=== PATIENT | female | born 1940 | race Caucasian/White ===

== ENCOUNTER → 2016-07-13 | Outpatient (CLI) | payer MEDICARE ==
--- NOTE | 2016-07-14 09:54 | MM ---
Reason for exam: screening (asymptomatic). Last mammogram was performed 1 year and 2 months ago. History: Patient is postmenopausal. Benign excisional biopsy of the left breast, 1986. Benign excisional biopsy of the right breast, 1984. Benign excisional biopsy of the left breast. Took hormonal contraceptives for 3 years beginning at age 18. Took estrogen for 2 years beginning at age 47. Taking other hormone for 39 years beginning at age 28. Physical Findings: A clinical breast exam by your physician is recommended on an annual basis and results should be correlated with mammographic findings. MG 3D Screening Mammo W/Cad Bilateral CC and MLO view(s) were taken. Prior study comparison: May 26, 2015, bilateral MG 3d screening mammo w/cad. May 19, 2014, bilateral MG screening mammo w CAD. The breast tissue is heterogeneously dense. This may lower the sensitivity of mammography. Benign calcifications. There is no discrete abnormality. No significant changes when compared with prior studies. ASSESSMENT: Benign, BI-RAD 2 RECOMMENDATION: Routine screening mammogram of both breasts in 1 year.
== END | disposition home or self-care (01) ==
LOC: RADMAMWWP 08:52
PROVIDERS: ATTEND Family Medicine
DX: Z12.31 Encounter for screening mammogram for malignant neoplasm of breast (principal)
CPT/HCPCS: 77063; G0202

== ENCOUNTER → 2017-07-20 | Outpatient (CLI) | payer MEDICARE ==
--- NOTE | 2017-07-21 10:46 | MM ---
Reason for exam: screening (asymptomatic). Last mammogram was performed 1 year ago. History: Patient is postmenopausal. Benign excisional biopsy of the left breast, 1986. Benign excisional biopsy of the right breast, 1984. Benign excisional biopsy of the left breast. Took hormonal contraceptives for 3 years beginning at age 18. Took estrogen for 2 years beginning at age 47. Taking other hormone for 39 years beginning at age 28. Physical Findings: A clinical breast exam by your physician is recommended on an annual basis and results should be correlated with mammographic findings. MG 3D Screening Mammo W/Cad Bilateral CC and MLO view(s) were taken. XCCL view(s) were taken of the left breast. Prior study comparison: July 13, 2016, bilateral MG 3d screening mammo w/cad. May 26, 2015, bilateral MG 3d screening mammo w/cad. The breast tissue is heterogeneously dense. This may lower the sensitivity of mammography. Finding #1: Architectural distortion in the outer quadrant of the right breast consistent with known excisional biopsy. Finding #2: There are typically benign vascular calcifications in the right breast. Asymmetric breast tissue in the right medial position is stable and in the left breast upper quadrant is stable. There is no discrete abnormality. Benign round calcifications in the left breast. ASSESSMENT: Benign, BI-RAD 2 RECOMMENDATION: Routine screening mammogram of both breasts in 1 year.
== END | disposition home or self-care (01) ==
LOC: RADMAMWWP 13:10
PROVIDERS: ATTEND Family Medicine
DX: Z12.31 Encounter for screening mammogram for malignant neoplasm of breast (principal)
CPT/HCPCS: 77063; 77067

== ENCOUNTER → 2018-08-13 | Outpatient (CLI) | payer MEDICARE ==
--- NOTE | 2018-08-15 07:39 | MM ---
Reason for exam: screening (asymptomatic). Last mammogram was performed 1 year and 1 month ago. History: Patient is postmenopausal. Benign excisional biopsy of the left breast, 1986. Benign excisional biopsy of the right breast, 1984. Benign excisional biopsy of the left breast. Took hormonal contraceptives for 3 years beginning at age 18. Took estrogen for 2 years beginning at age 47. Taking other hormone for 39 years beginning at age 28. Physical Findings: A clinical breast exam by your physician is recommended on an annual basis and results should be correlated with mammographic findings. MG 3D Screening Mammo W/Cad Bilateral CC and MLO view(s) were taken. Prior study comparison: July 20, 2017, bilateral MG 3d screening mammo w/cad. July 13, 2016, bilateral MG 3d screening mammo w/cad. The breast tissue is heterogeneously dense. This may lower the sensitivity of mammography. Benign appearing bilateral calcifications. No suspicious abnormality. No significant changes when compared with prior studies. ASSESSMENT: Benign, BI-RAD 2 RECOMMENDATION: Routine screening mammogram of both breasts in 1 year.
== END | disposition home or self-care (01) ==
LOC: RADMAMWWP 13:01
PROVIDERS: ATTEND Family Medicine
DX: Z12.31 Encounter for screening mammogram for malignant neoplasm of breast (principal)
CPT/HCPCS: 77063; 77067

== ENCOUNTER 2018-12-07 19:19 | Inpatient (IN) | payer MEDICARE ==
[2018-12-07] MEDS ORDERED: SODIUM CHLORIDE 0.9% 500 ML 500 ML IV STA (20:02)
--- NOTE | 2018-12-07 20:21 | ED ---
General Adult HPI - General Chief complaint: Weakness Stated complaint: Fall Time Seen by Provider: 12/07/18 19:45 Source: patient, family, EMS, RN notes reviewed Mode of arrival: EMS Limitations: no limitations - History of Present Illness Initial comments: Chief complaint and history of present illness this is an 78-year-old female who reports that she had difficulty getting up from her easy chair today. She states she is normally able to push herself up and use her walker. With she was unable to do it this afternoon. She did awaken this morning was able to go prepare her coffee and go to the bathroom using her walker. This afternoon she couldn't even stand with people on either side of her. Patient reports that while on the toilet yesterday she was trying to remove a slip her and she slipped off the toilet landing near the bathtub. EMS responded yesterday helped her up put her in bed. She was able to ambulate in her normal fashion by using a walker afterwards. Her problem started this afternoon. Any pain from yesterday's incident. Denies any headache denies any neuro deficits other than bilateral lower extremity weakness. - Related Data Home Medications Medication Instructions Recorded Confirmed Acetaminophen [Tylenol Extra 1,000 mg PO DAILY 12/07/18 12/07/18 Strength] Ascorbic Acid [Vitamin C] 500 mg PO DAILY 12/07/18 12/07/18 Cholecalciferol [Vitamin D3 (25 2,000 unit PO DAILY 12/07/18 12/07/18 Mcg = 1000 Iu)] Citalopram Hydrobromide [CeleXA] 20 mg PO DAILY 12/07/18 12/07/18 Gabapentin [Neurontin] 200 mg PO BID 12/07/18 12/07/18 Levothyroxine Sodium [Synthroid] 75 mcg PO DAILY 12/07/18 12/07/18 Multivitamins, Thera [Multivitamin 1 tab PO DAILY 12/07/18 12/07/18 (formulary)] Vit A/Vit C/Vit E/Zinc/Copper 1 cap PO DAILY 12/07/18 12/07/18 [ICAPS SOFTGEL] clonazePAM 0.5 mg PO BID 12/07/18 12/07/18 cycloSPORINE [Restasis] 1 applicator BOTH EYES BID 12/07/18 12/07/18 Allergies Allergy/AdvReac Type Severity Reaction Status Date / Time Latex, Natural Rubber Allergy Rash/Hives Verified 12/07/18 19:50 Review of Systems ROS Statement: Those systems with pertinent positive or pertinent negative responses have been documented in the HPI. Review of systems patient denies any headache no visual acuity changes no chest pain or shortness of breath has chronic low back pain. No nausea vomiting or diarrhea. No pain to the extremities. Patient reports for short while she was extremely cold and then extremely hot, she was sweaty at the time. Patient denies any difficulty urinating no frequency urgency dysuria denies any diarrhea. thIs reportedly happened once over a short period. Vital signs shows temperature 99.9 pulse 94 respiratory rate 18 pulse ox 94% on room air blood pressure 12 or 55. Past medical problems significant for hypothyroidism after partial thyroid lobe removed. Patient surgeries include partial thyroidectomy, both feet refilled, right fem-pop bypass, total hysterectomy, breast lump removed and cataracts. The patient's family history significant for mother had pancreatic cancer and a father had lymphoma. The patient denies any ALLERGIES. She does smoke occasionally drinks alcohol socially. ROS Other: All systems not noted in ROS Statement are negative. General Exam - General Exam Comments Initial Comments: General: The patient is awake and alert, currently in no distress. Patient's chief complaint was weakness, unable to help herself out of her easy chair to her walker which she was able to do earlier in the day. Unable to stand even with 2 people assisting her. Denying pain. Vital signs temp 99.5 pulse 94 respiratory rate 18 pulse ox 94% on room air blood pressure 1 2/55 Eye: Pupils are equal, round and reactive to light, extra-ocular movements are intact; there is normal conjunctiva bilaterally. No signs of icterus. Evidence of cataract surgery Ears, nose, mouth and throat: There are moist mucous membranes and no oral lesions. Neck: The neck is supple, there is no tenderness. Cardiovascular: There is a regular rate and rhythm. No murmur, rub or gallop is appreciated. Respiratory: Lungs are clear to auscultation, respirations are non-labored, breath sounds are equal. No wheezes, stridor, rales, or rhonchi. Gastrointestinal: Soft, non-distended, non-tender abdomen without masses or organomegaly noted. There is no rebound or guarding present. No CVA tenderness. Bowel sounds are unremarkable. Back: There is no tenderness to palpation in the midline. There is no obvious deformity. No rashes noted. History of chronic low back pain. Musculoskeletal: Normal ROM, no tenderness, There is no pedal edema. There is no calf tenderness or swelling. Sensation intact. Pulses equal bilaterally 2+. Neurological: CN II-XII intact, There are no obvious motor or sensory deficits. Coordination appears grossly intact. Speech is normal. No focal or lateralizing findings. bedside neurological exam was within normal limits. Average to be made to have the patient ambulate. Patient able to lift her legs against gravity and hold them in place for 5 seconds. No numbness no tingling, neurovascular status intact to the legs. Skin: Skin is warm and dry and no rashes or lesions are noted. Psychiatric: Cooperative, appropriate mood & affect, Limitations: no limitations Course Vital Signs 12/07/18 12/07/18 12/07/18 19:22 19:40 21:56 Temperature 99.5 F 99.8 F H Pulse Rate 94 89 Respiratory 18 18 18 Rate Blood Pressure 102/55 102/55 O2 Sat by Pulse 94 L Oximetry EKG Findings - EKG Comments: EKG Findings:: EKG was done and reviewed at 2019 showing normal sinus rhythm, no acute ST elevation , no ectopy no ischemic changes. Rate 93 ID interval is 02/24/2027 QRS 84 QT [address] Childs Medical Decision Making - Medical Decision Making Medical decision making; this is an 78-year-old female here with family. The patient reports that she had weakness today starting around mid afternoon. Yesterday she states that she was trying to remove a shoe and she fell off the toilet but didn't hurt herself. EMS went to the house and put her back in bed. She reports she got up this morning without difficulty used her walker to go to get coffee and then to the bathroom. Later on the afternoon she could not even with assistance getting out of her easy chair. She was brought emergency room. Patient denies any other symptoms at this time denies any headache no chest pain no palpitations no shortness of breath no GI/ problems. She able to move all extremities lift against gravity but was unable to ambulate or stand on her own power. Labs show white count 16.5 hemoglobin 12.7 hematocrit 39. Urine shows moderate amount of blood, nitrate positive, large leuk esterase, 12 RBCs and clumps of WBCs. INR is 1.0. The patient's BUN is 34 creatinine 1.27 the GFR 40. The patient's glucose 131. Troponin is reported by laboratory to be 0.2-2. Patient's EKG did not show any acute changes, no ischemic changes. The patient had no complaint of chest pain. X-ray of the chest was done and reviewed by radiologist his impression is no acute cardio pulmonary disease as read by Dr. Johnson. The radiologist reviewed x-rays lumbosacral spine his impression is spondylotic changes but no acute fracture. As read by Dr. Johnson. Discussed case with patient and family at bedside patient be admitted for the evaluation with repeat troponins. First and repeat neurological examinations are within normal limits even with leg lifting against gravity for [address] Shea. Patient admitted to his service. Continued on Levaquin with repeat troponin every 6. - Lab Data Result diagrams: 12/07/18 20:13 12/07/18 20:13 Lab Results 12/07/18 12/07/18 12/07/18 Range/Units 20:13 20:13 20:13 WBC 16.5 H (3.8-10.6) k/uL RBC 4.19 (3.80-5.40) m/uL Hgb 12.7 (11.4-16.0) gm/dL Hct 39.9 (34.0-46.0) % MCV 95.2 (80.0-100.0) fL MCH 30.4 (25.0-35.0) pg MCHC 31.9 (31.0-37.0) g/dL RDW 13.5 (11.5-15.5) % Plt Count 155 (150-450) k/uL Neutrophils % 92 % Lymphocytes % 3 % Monocytes % 3 % Eosinophils % 1 % Basophils % 1 % Neutrophils # 15.2 H (1.3-7.7) k/uL Lymphocytes # 0.4 L (1.0-4.8) k/uL Monocytes # 0.4 (0-1.0) k/uL Eosinophils # 0.2 (0-0.7) k/uL Basophils # 0.1 (0-0.2) k/uL PT (9.0-12.0) sec INR (<1.2) APTT (22.0-30.0) sec Sodium 133 L (137-145) mmol/L Potassium 4.3 (3.5-5.1) mmol/L Chloride 100 (98-107) mmol/L Carbon Dioxide 24 (22-30) mmol/L Anion Gap 9 mmol/L BUN 34 H (7-17) mg/dL Creatinine 1.27 H (0.52-1.04) mg/dL Est GFR (CKD-EPI)AfAm 46 (>60 ml/min/1.73 sqM) Est GFR (CKD-EPI)NonAf 40 (>60 ml/min/1.73 sqM) Glucose 131 H (74-99) mg/dL Plasma Lactic Acid Trip 1.1 (0.7-2.0) mmol/L Calcium 8.9 (8.4-10.2) mg/dL Total Bilirubin 0.5 (0.2-1.3) mg/dL AST 486 H (14-36) U/L ALT 393 H (9-52) U/L Alkaline Phosphatase 102 (38-126) U/L Troponin I (0.000-0.034) ng/mL Total Protein 6.5 (6.3-8.2) g/dL Albumin 3.4 L (3.5-5.0) g/dL Urine Color Urine Appearance (Clear) Urine pH (5.0-8.0) Ur Specific [place] (1.001-1.035) Urine Protein (Negative) Urine Glucose (UA) (Negative) Urine Ketones (Negative) Urine Blood (Negative) Urine Nitrite (Negative) Urine Bilirubin (Negative) Urine Urobilinogen (<2.0) mg/dL Ur Leukocyte Esterase (Negative) Urine RBC (0-5) /hpf Urine WBC (0-5) /hpf Urine WBC Clumps (None) /hpf Ur Squamous Epith Cells (0-4) /hpf Urine Bacteria (None) /hpf Influenza Type A RNA (Not Detectd) Influenza Type B (PCR) (Not Detectd) 12/07/18 12/07/18 12/07/18 Range/Units 20:13 20:13 20:30 WBC (3.8-10.6) k/uL RBC (3.80-5.40) m/uL Hgb (11.4-16.0) gm/dL Hct (34.0-46.0) % MCV (80.0-100.0) fL MCH (25.0-35.0) pg MCHC (31.0-37.0) g/dL RDW (11.5-15.5) % Plt Count (150-450) k/uL Neutrophils % % Lymphocytes % % Monocytes % % Eosinophils % % Basophils % % Neutrophils # (1.3-7.7) k/uL Lymphocytes # (1.0-4.8) k/uL Monocytes # (0-1.0) k/uL Eosinophils # (0-0.7) k/uL Basophils # (0-0.2) k/uL PT 10.3 (9.0-12.0) sec INR 1.0 (<1.2) APTT 26.9 (22.0-30.0) sec Sodium (137-145) mmol/L Potassium (3.5-5.1) mmol/L Chloride (98-107) mmol/L Carbon Dioxide (22-30) mmol/L Anion Gap mmol/L BUN (7-17) mg/dL Creatinine (0.52-1.04) mg/dL Est GFR (CKD-EPI)AfAm (>60 ml/min/1.73 sqM) Est GFR (CKD-EPI)NonAf (>60 ml/min/1.73 sqM) Glucose (74-99) mg/dL Plasma Lactic Acid Trip (0.7-2.0) mmol/L Calcium (8.4-10.2) mg/dL Total Bilirubin (0.2-1.3) mg/dL AST (14-36) U/L ALT (9-52) U/L Alkaline Phosphatase (38-126) U/L Troponin I 0.222 H* (0.000-0.034) ng/mL Total Protein (6.3-8.2) g/dL Albumin (3.5-5.0) g/dL Urine Color Urine Appearance (Clear) Urine pH (5.0-8.0) Ur Specific [place] (1.001-1.035) Urine Protein (Negative) Urine Glucose (UA) (Negative) Urine Ketones (Negative) Urine Blood (Negative) Urine Nitrite (Negative) Urine Bilirubin (Negative) Urine Urobilinogen (<2.0) mg/dL Ur Leukocyte Esterase (Negative) Urine RBC (0-5) /hpf Urine WBC (0-5) /hpf Urine WBC Clumps (None) /hpf Ur Squamous Epith Cells (0-4) /hpf Urine Bacteria (None) /hpf Influenza Type A RNA Not Detected (Not Detectd) Influenza Type B (PCR) Not Detected (Not Detectd) 12/07/18 Range/Units 21:00 WBC (3.8-10.6) k/uL RBC (3.80-5.40) m/uL Hgb (11.4-16.0) gm/dL Hct (34.0-46.0) % MCV (80.0-100.0) fL MCH (25.0-35.0) pg MCHC (31.0-37.0) g/dL RDW (11.5-15.5) % Plt Count (150-450) k/uL Neutrophils % % Lymphocytes % % Monocytes % % Eosinophils % % Basophils % % Neutrophils # (1.3-7.7) k/uL Lymphocytes # (1.0-4.8) k/uL Monocytes # (0-1.0) k/uL Eosinophils # (0-0.7) k/uL Basophils # (0-0.2) k/uL PT (9.0-12.0) sec INR (<1.2) APTT (22.0-30.0) sec Sodium (137-145) mmol/L Potassium (3.5-5.1) mmol/L Chloride (98-107) mmol/L Carbon Dioxide (22-30) mmol/L Anion Gap mmol/L BUN (7-17) mg/dL Creatinine (0.52-1.04) mg/dL Est GFR (CKD-EPI)AfAm (>60 ml/min/1.73 sqM) Est GFR (CKD-EPI)NonAf (>60 ml/min/1.73 sqM) Glucose (74-99) mg/dL Plasma Lactic Acid Trip (0.7-2.0) mmol/L Calcium (8.4-10.2) mg/dL Total Bilirubin (0.2-1.3) mg/dL AST (14-36) U/L ALT (9-52) U/L Alkaline Phosphatase (38-126) U/L Troponin I (0.000-0.034) ng/mL Total Protein (6.3-8.2) g/dL Albumin (3.5-5.0) g/dL Urine Color Yellow Urine Appearance Cloudy H (Clear) Urine pH 6.0 (5.0-8.0) Ur Specific [place] 1.015 (1.001-1.035) Urine Protein 2+ H (Negative) Urine Glucose (UA) Negative (Negative) Urine Ketones Negative (Negative) Urine Blood Moderate H (Negative) Urine Nitrite Positive H (Negative) Urine Bilirubin Negative (Negative) Urine Urobilinogen <2.0 (<2.0) mg/dL Ur Leukocyte Esterase Large H (Negative) Urine RBC 12 H (0-5) /hpf Urine WBC >182 H (0-5) /hpf Urine WBC Clumps Many H (None) /hpf Ur Squamous Epith Cells 3 (0-4) /hpf Urine Bacteria Many H (None) /hpf Influenza Type A RNA (Not Detectd) Influenza Type B (PCR) (Not Detectd) Disposition Clinical Impression: Weakness of both lower limbs, Urinary tract infection, Elevated troponin, Chronic kidney disease Disposition: ADMITTED IP TO THIS HOSP Condition: Serious Is patient prescribed a controlled substance at d/c from ED?: No Referrals: None,Stated [Primary Care Provider] - 1-2 days
[2018-12-07 20:42] LABS: Basophils # (A) 0.1 k/uL (0-0.2); Basophils % (A) 1 %; Eosinophils # (A) 0.2 k/uL (0-0.7); Eosinophils % (A) 1 %; HCT 39.9 % (34.0-46.0); HGB 12.7 gm/dL (11.4-16.0); Lymphocytes # (A) 0.4 k/uL (1.0-4.8); Lymphocytes % (A) 3 %; MCH 30.4 pg (25.0-35.0); MCHC 31.9 g/dL (31.0-37.0); MCV 95.2 fL (80.0-100.0); Monocytes # (A) 0.4 k/uL (0-1.0); Monocytes % (A) 3 %; Neutrophils # (A) 15.2 k/uL (1.3-7.7); Neutrophils % (A) 92 %; Platelet Count 155 k/uL (150-450); RBC 4.19 m/uL (3.80-5.40); RDW 13.5 % (11.5-15.5); WBC 16.5 k/uL (3.8-10.6)
[2018-12-07 20:50] LABS: Partial Thromboplastin Time 26.9 sec (22.0-30.0); Prothrombin Time 10.3 sec (9.0-12.0)
[2018-12-07 20:52] LABS: Albumin 3.4 g/dL (3.5-5.0); Calcium 8.9 mg/dL (8.4-10.2); Potassium 4.3 mmol/L (3.5-5.1); Total Bilirubin 0.5 mg/dL (0.2-1.3); Total Protein 6.5 g/dL (6.3-8.2)
--- NOTE | 2018-12-07 21:27 | XR ---
EXAMINATION TYPE: XR chest 2V DATE OF EXAM: 12/07/2018 COMPARISON: 06/14/2010 HISTORY: Weakness TECHNIQUE: Frontal and lateral views of the chest are obtained. FINDINGS: There is no heart failure nor confluent pneumonic infiltrate. Costophrenic angles are demetri r. Bony thorax is intact. There are chest leads. IMPRESSION: No active cardiopulmonary disease. Normal heart. No change.
--- NOTE | 2018-12-07 21:29 | XR ---
EXAMINATION TYPE: XR lumbosacral spine min 4V DATE OF EXAM: 12/07/2018 COMPARISON: NONE HISTORY: Leg weakness TECHNIQUE: 5 views FINDINGS: Lumbar vertebra have normal alignment. There is some degenerative disc space narrowing thro ughout the lumbar spine and more noticeable at L1-L2 3. There is no compression fracture. Posterior e lements are intact. Sacroiliac joints are intact. IMPRESSION: Spondylotic changes. No fracture.
[2018-12-07 21:32] LABS: Appearance,Urine Cloudy (Clear); Bacteria,Urine Many /hpf; Bilirubin,Urine Negative (Negative); Blood,Urine Moderate (Negative); Color,Urine Yellow; Glucose,Urine (UA) Negative (Negative); Ketones,Urine Negative (Negative); Leukocyte Esterase,Urine Large (Negative); Nitrite,Urine Positive (Negative); Protein,Urine 2+ (Negative); RBC,Urine 12 /hpf (0-5); Specific Gravity,Urine 1.015 (1.001-1.035); Squamous Epithelial Cell,Urine 3 /hpf (0-4); Urobilinogen,Urine <2.0 mg/dL (<2.0)
[2018-12-07] MEDS ORDERED: LEVOFLOXACIN 500MG-D5W PMX 500 MG in DEXTROSE/WATER 1 100ML.BAG IVPB STA (22:19)
[2018-12-07] MEDS ORDERED: SODIUM CHLORIDE 0.9% 1,000 ML IV ONE (23:12)
[2018-12-07] MEDS ORDERED: NALOXONE 0.4 MG/ML 1 ML VIAL IV PRN (23:15)
[2018-12-07] MEDS ORDERED: diphenhydrAMINE 50 MG/ML 1 ML VIAL IVP STA (23:51)
[2018-12-07] MEDS ORDERED: FAMOTIDINE 20 MG/2 ML VIAL IV STA (23:52)
[2018-12-07] MEDS ORDERED: IPRATROPIUM-ALBUTEROL 3 ML NEB INHALATION STA (23:53)
[2018-12-08] MEDS: ACETAMINOPHEN TAB 325 MG TAB PO PRN ×3 (00:03→14:32)
[2018-12-08] MEDS: LEVOTHYROXINE 75 MCG TAB PO SCH (05:35)
[2018-12-08] MEDS: GABAPENTIN 100 MG CAP PO SCH ×2 (08:33→20:06)
[2018-12-08] MEDS: CITALOPRAM HYDROBROMIDE 20 MG TAB PO SCH (08:33)
[2018-12-08] MEDS: CHOLECALCIFEROL 1,000 UNIT TAB PO SCH (08:33)
[2018-12-08] MEDS: FAMOTIDINE 20 MG TAB PO SCH (08:33)
[2018-12-08] MEDS: cycloSPORINE 0.05% OPHTH 0.4 ML DROPERETTE BOTH EYES SCH ×2 (08:34→20:06)
[2018-12-08] MEDS: ASCORBIC ACID 500 MG TAB PO SCH (08:34)
[2018-12-08] MEDS: MULTIVITAMINS, THERA 1 EACH TAB PO SCH (08:34)
[2018-12-08] MEDS: clonazePAM 0.5 MG TAB PO SCH ×2 (08:34→20:06)
[2018-12-08] MEDS: HEPARIN SODIUM,PORCINE 5,000 UNIT/ML 1 ML VIAL SQ SCH ×2 (08:35→20:05)
[2018-12-08] MEDS ORDERED: LEVOFLOXACIN 500MG-D5W PMX 500 MG in DEXTROSE/WATER 1 100ML.BAG IVPB SCH (09:00)
[2018-12-08] MEDS: VIT A,C & E-LUTEIN-MINERALS 1 EACH TAB PO SCH (09:57)
--- NOTE | 2018-12-08 15:27 | P.HPIM ---
History of Present Illness H&P Date: 12/08/18 Chief Complaint: Generalized weakness/dyspnea. This is an 78-year-old female with a previous medical history significant for hypothyroidism, dry eyes, osteoarthritis, I suppose, chronic tobacco use and dependence with possible COPD, patient was in her usual state of health about the day before yesterday when she was in the bathroom she fell family ended up calling EMS for her to sit her up and the patient was able to ambulate fine without any issues, yesterday when she was trying to use her walker and trying to ambulating herself she could not even sit herself up but she could not even template using a walker with 2 people in front and back of her, patient was using the walker and suddenly she felt extremely weak in both lower extremity she was complaining of increased dysuria and she was somewhat short of breath with ambulation, family called EMS the patient was brought into the ER for evaluation, patient was found to have an elevated troponin and el evated white count and very bad urinary tract infection chest x-ray showed no cardio regularly and no infiltrate, lumbar x-ray did not show any evidence of acute fracture however it did show significant spondylosis of the lumbar spine, patient was started on IV antibiotic in the form of Levaquin and she was admitted to the hospital for evaluation urine cultures and blood cultures were obtained, patient blood culture today showed 2 g negative rods she was taken off her Levaquin and she was started on Zosyn 3.375 g IV piggyback every 8 hours since her blood cultures were negative she continues to have a temperature max at 103, she will be seen in consultation by infectious disease, she will be seen in consultation by cardiology as well, we have obtain a stat 12-lead EKG since I could not find her EKG from yesterday, echocardiogram will be obtained as well ultrasound of the abdomen would be obtained due to her elevated liver function test as well. This is could be all related to the sepsis picture at this time we will continue to monitor the patient very closely. Review of Systems Constitutional: Reports fatigue, Reports malaise, Reports poor appetite, Reports weakness Eyes: bilateral dry eye, denies blurred vision, denies bulging eye, denies decreased vision Ears: deny: decreased hearing Ears, nose, mouth and throat: Denies dysphagia, Denies swelling in throat, De nies sore throat Cardiovascular: Reports decreased exercise tolerance, Reports dyspnea on exertion, Reports shortness of breath, Denies chest pain, Denies lightheadedness, Denies rapid heart beat, Denies syncope Respiratory: Denies congestion, Denies cough, Denies cough with sputum, Denies hemoptysis, Denies home oxygen, Denies sleep apnea, Denies snoring, Denies wheezing Gastrointestinal: Reports loss of appetite, Denies abdominal pain, Denies bloating, Denies BRBPR, Denies heartburn, Denies melena, Denies nausea, Denies vomiting Genitourinary: Reports dysuria, Reports nocturia, Reports urgency, Reports urinary frequency Menstruation: Reports post hysterectomy Musculoskeletal: Reports frequent falls, Reports gait dysfunction, Reports low b ack pain, Denies myalgias Musculoskeletal: absent: ankle pain, ankle stiffness, ankle swelling, elbow pain, elbow stiffness, elbow swelling, foot pain, foot stiffness, foot swelling, hand pain, hand stiffness, hand swelling, hip pain, hip stiffness, hip swelling, knee pain, knee stiffness, knee swelling, shoulder pain, shoulder stiffness, shoulder swelling, wrist pain, wrist stiffness, wrist swelling Integumentary: Denies pruritus, Denies rash Neurological: Denies numbness, Denies weakness Psychiatric: Reports anxiety, Reports depression Endocrine: Denies fatigue, Denies weight change Past Medical History Past Medical History: Eye Disorder, Osteoarthritis (OA), Thyroid Disorder Additional Past Medical History / Comment(s): Osteoporosis History of Any Multi-Drug Resistant Organisms: None Reported Past Surgical History: Breast Surgery, Hysterectomy, Orthopedic Surgery Additional Past Surgical History / Comment(s): Cataract surgery, patial thyroidectomy, bilateral total knees, reconstruction on both feet, vein taken out of R. leg from groin to ankle, lumpectomy on left breast, biopsy of 2x lumps on right breast Past Anesthesia/Blood Transfusion Reactions: No Reported Reaction Past Psychological History: No Psychological Hx Reported Smoking Status: Current every day smoker (Patient smokes about 8-10 cigars a daily basis and she was a teenager.) Past Alcohol Use History: Rare Past Drug Use History: None Reported - Past Family History Mother Family Medical History: Cancer (Mother at age of 68 from pancreatic cancer.) Additional Family Medical History / Comment(s): pancreatic cancer Father Family Medical History: Cancer (Father at age of 62 from non-Hodgkin lymphoma.) Additional Family Medical History / Comment(s): lymphoma Brother(s) Family Medical History: No Reported History (Patient has one brother no major medical problems.) Sister(s) Family Medical History: No Reported History (Patient has 3 sisters no major medical problems.) Daughter(s) Family Medical History: No Reported History (Patient has one daughter no major medical problem.) Son(s) Family Medical History: No Reported History (Patient has 3 sons no major medical problems.) Medications and Allergies Home Medications Medication Instructions Recorded Confirmed Type Acetaminophen [Tylenol Extra 1,000 mg PO DAILY 12/07/18 12/07/18 History Strength] Ascorbic Acid [Vitamin C] 500 mg PO DAILY 12/07/18 12/07/18 History Cholecalciferol [Vitamin D3 (25 2,000 unit PO DAILY 12/07/18 12/07/18 History Mcg = 1000 Iu)] Citalopram Hydrobromide [CeleXA] 20 mg PO DAILY 12/07/18 12/07/18 History Gabapentin [Neurontin] 200 mg PO BID 12/07/18 12/07/18 History Levothyroxine Sodium [Synthroid] 75 mcg PO DAILY 12/07/18 12/07/18 History Multivitamins, Thera [Multivitamin 1 tab PO DAILY 12/07/18 12/07/18 History (formulary)] Vit A/Vit C/Vit E/Zinc/Copper 1 cap PO DAILY 12/07/18 12/07/18 History [ICAPS SOFTGEL] clonazePAM 0.5 mg PO BID 12/07/18 12/07/18 History cycloSPORINE [Restasis] 1 applicator BOTH EYES BID 12/07/18 12/07/18 History Allergies Allergy/AdvReac Type Severity Reaction Status Date / Time Latex, Natural Rubber Allergy Rash/Hives Verified 12/07/18 19:50 Physical Exam Vitals: Vital Signs Temp Pulse Pulse Resp BP BP Pulse Ox 12/08/18 03:21 98 12/08/18 02:17 99.6 F 12/08/18 00:57 100.9 F H 99 15 92/53 97 12/08/18 00:37 101 F H 100 20 126/78 98 12/08/18 00:14 111 H 12/08/18 00:05 108 H 12/07/18 23:13 101.5 F H 116 H 24 120/76 90 L 12/07/18 21:56 99.8 F H 89 18 102/55 12/07/18 19:40 18 12/07/18 19:22 99.5 F 94 18 102/55 94 L Intake and Output 12/07/18 12/08/18 12/08/18 22:59 06:59 14:59 Output Total 200 Balance -200 Output: Urine 200 Other: Weight 81.647 kg - Constitutional General appearance: average body habitus, mild distress - EENT Eyes: anicteric sclerae, EOMI, PERRLA, no ptosis, no scleral icterus, normal ap pearance ENT: hearing grossly normal, NA/AT, normal oropharynx, no thrush Ears: bilateral: normal - Neck Carotids: bilateral: upstroke normal Thyroid: bilateral: normal size - Respiratory Respiratory: bilateral: diminished, negative: dullness, rales, rhonchi, wheezing, prolonged expiration - Cardiovascular Rhythm: regular Heart sounds: normal: S1, S2 Abnormal Heart Sounds: systolic murmur, no S3 Gallop, no S4 Gallop - Gastrointestinal General gastrointestinal: normal bowel sounds, soft, no splenomegaly, no tendern ess, no umbilical hernia, no ventral hernia - Integumentary Integumentary: normal, normal turgor - Neurologic Neurologic: CNII-XII intact - Musculoskeletal Musculoskeletal: generalized weakness, strength equal bilaterally - Psychiatric Psychiatric: A&O x's 3, appropriate affect, intact judgment & insight Results CBC & Chem 7: 12/07/18 20:13 12/07/18 20:13 Labs: Abnormal Lab Results - Last 24 Hours (Table) 12/07/18 12/07/18 12/07/18 Range/Units 20:13 20:13 20:13 WBC 16.5 H (3.8-10.6) k/uL Neutrophils # 15.2 H (1.3-7.7) k/uL Lymphocytes # 0.4 L (1.0-4.8) k/uL Sodium 133 L (137-145) mmol/L BUN 34 H (7-17) mg/dL Creatinine 1.27 H (0.52-1.04) mg/dL Glucose 131 H (74-99) mg/dL AST 486 H (14-36) U/L ALT 393 H (9-52) U/L Troponin I 0.222 H* (0.000-0.034) ng/mL Albumin 3.4 L (3.5-5.0) g/dL Urine Appearance (Clear) Urine Protein (Negative) Urine Blood (Negative) Urine Nitrite (Negative) Ur Leukocyte Esterase (Negative) Urine RBC (0-5) /hpf Urine WBC (0-5) /hpf Urine WBC Clumps (None) /hpf Urine Bacteria (None) /hpf 12/07/18 12/08/18 Range/Units 21:00 02:38 WBC (3.8-10.6) k/uL Neutrophils # (1.3-7.7) k/uL Lymphocytes # (1.0-4.8) k/uL Sodium (137-145) mmol/L BUN (7-17) mg/dL Creatinine (0.52-1.04) mg/dL Glucose (74-99) mg/dL AST (14-36) U/L ALT (9-52) U/L Troponin I 0.155 H* (0.000-0.034) ng/mL Albumin (3.5-5.0) g/dL Urine Appearance Cloudy H (Clear) Urine Protein 2+ H (Negative) Urine Blood Moderate H (Negative) Urine Nitrite Positive H (Negative) Ur Leukocyte Esterase Large H (Negative) Urine RBC 12 H (0-5) /hpf Urine WBC >182 H (0-5) /hpf Urine WBC Clumps Many H (None) /hpf Urine Bacteria Many H (None) /hpf Microbiology - Last 24 Hours (Table) 12/07/18 21:00 Urine Culture - Preliminary Urine,Voided Thrombosis Risk Factor Assmnt - DVT/VTE Prophylaxis DVT/VTE Prophylaxis: Pharmacologic Prophylaxis ordered, Mechanical Prophylaxis ordered - Choose All That Apply Each Factor Represents 1 point: Obesity (BMI >25) Each Risk Factor Represents 3 Points: Age 75 years or older Thrombosis Risk Factor Assessment Total Risk Factor Score: 4 Thrombosis Risk Factor Assessment Level: Moderate Risk Assessment and Plan Assessment: Assessment and plan: 1. Urinary tract infection with sepsis and gram-negative bacteremia. Discontinue Levaquin, start the patient on Zosyn 3.375 g IV piggyback every 8 hours, repeated the blood cultures in the next 24-48 hours, IV fluid resuscitation the form of normal saline at 75 mL an hour, ID consultation Dr. Jane, monitor the patient very closely. 2. Mild dyspnea with elevated troponin without evidence of acute coronary syndrome. Stat EKG, continue patient on aspirin 81 mg orally once every day, echocardiogram for evaluation of LV function, obtain cardiology consultation, this is likely related to acute sepsis doubt any thrombo-embolic disease, we will check d-dimer if it's elevated we will proceed with CT angiography of the chest. 3. Acute kidney injury due to acute tubular necrosis. IV fluid resuscitation the form of normal saline 75 mL an hour monitor the patient CMP in the next 24 hours. 4. Elevated liver function tests of unclear etiology. Check ultrasound of the abdomen. 5. Hypothyroidism. Continue Synthroid 75 g orally once every day. 6. Chronic tobacco use and dependence. Smoking cessation and start the patient on nicotine patch 14 mg once every day. 7. Anxiety and depressive disorder. Continue citalopram and Klonopin. 8. Bilateral lower extremity neuropathy. Continue patient on gabapentin 200 mg orally twice every day. 9. Generalized weakness and inability to ambulate with gait dysfunction. Physical therapy evaluation. 10. Vitamin D deficiency. Continue vitamin D supplement. 11. Dry eyes. Continue Restasis. 12. Adult onset macular degeneration. Continue her supplements for 13. Spondylosis of the lumbar spine. Physical therapy evaluation tomorrow morning. 14. DVT prophylaxis. Heparin 5000 units subcutaneously every 8 hours . 15. GI prophylaxis. Continue with Pepcid. 16. Admit to inpatient. Estimate a length of stay 2 midnights. 17. Patient is full code.
[2018-12-08] MEDS: SODIUM CHLORIDE 0.9% 1,000 ML IV SCH (15:42)
[2018-12-08 15:53] LABS: Calcium 8.4 mg/dL (8.4-10.2); Potassium 4.1 mmol/L (3.5-5.1); Total Bilirubin 0.4 mg/dL (0.2-1.3)
[2018-12-08] MEDS: PIPERACILLIN-TAZOBACTAM 3.375 GM in SODIUM CHLORIDE 0.9% 100 ML IVPB SCH ×2 (17:26→23:33)
--- NOTE | 2018-12-08 18:56 | CT ---
EXAMINATION TYPE: CT chest angio for PE DATE OF EXAM: 12/08/2018 COMPARISON: None HISTORY: Rule out PE. CT DLP: 393.9 mGycm Automated exposure control for dose reduction was used. CONTRAST: CT Chest for pulmonary embolism performed with with IV Contrast, patient injected with 72ml mL of Iso beck 370. There are 3-D post processed images. FINDINGS: There is mild subsegmental atelectasis at the posterior lung bases. There is mild pleural thickening posterior lung bases. Heart size is normal. There is no pericardial effusion. There is no mediastinal adenopathy. There is no evidence of thoracic aortic dissection. 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 There are no hilar masses. There is normal contrast opacification of the pulmonary arteries. There are no filling defects. The b nadir thorax is intact. There is moderate arthritic change in the right shoulder joint. IMPRESSION: No evidence of pulmonary embolism. Basilar pulmonary pleural thickening and subsegmental atelectasis. Mild aneurysm ascending aorta.
[2018-12-08] MEDS ORDERED: LEVOFLOXACIN 250MG-D5W PMX 250 MG in DEXTROSE/WATER 1 50ML.BAG IVPB SCH (21:00)
[2018-12-08] MEDS: IPRATROPIUM-ALBUTEROL 3 ML NEB INHALATION SCH (21:12)
[2018-12-08] MEDS: IBUPROFEN 600 MG TAB PO PRN (23:33)
[2018-12-09] MEDS: IBUPROFEN 600 MG TAB PO PRN ×2 (04:43→16:53)
[2018-12-09] MEDS ORDERED: VANCOMYCIN 1,000 MG in SODIUM CHLORIDE 0.9% 250 ML IVPB ONE (06:00)
[2018-12-09] MEDS: SODIUM CHLORIDE 0.9% 1,000 ML IV SCH ×2 (06:03→20:51)
[2018-12-09] MEDS: LEVOTHYROXINE 75 MCG TAB PO SCH ×2 (06:03→09:09)
[2018-12-09 07:19] LABS: Basophils % (A) 0 %; Eosinophils % (A) 0 %; HCT 36.8 % (34.0-46.0); HGB 11.4 gm/dL (11.4-16.0); Lymphocytes # (A) 0.4 k/uL (1.0-4.8); Lymphocytes % (A) 7 %; MCH 29.8 pg (25.0-35.0); MCHC 30.9 g/dL (31.0-37.0); MCV 96.4 fL (80.0-100.0); Mean Platelet Volume 7.9; Monocytes # (A) 0.2 k/uL (0-1.0); Monocytes % (A) 4 %; Neutrophils # (A) 4.9 k/uL (1.3-7.7); Neutrophils % (A) 87 %; Platelet Count 126 k/uL (150-450); RBC 3.82 m/uL (3.80-5.40); RDW 13.7 % (11.5-15.5); WBC 5.6 k/uL (3.8-10.6)
[2018-12-09 07:35] LABS: Albumin 2.6 g/dL (3.5-5.0); Potassium 3.9 mmol/L (3.5-5.1); Total Bilirubin 0.5 mg/dL (0.2-1.3); Total Protein 5.3 g/dL (6.3-8.2)
[2018-12-09] MEDS: IPRATROPIUM-ALBUTEROL 3 ML NEB INHALATION SCH ×4 (07:35→20:12)
[2018-12-09] MEDS: PIPERACILLIN-TAZOBACTAM 3.375 GM in SODIUM CHLORIDE 0.9% 100 ML IVPB SCH ×3 (08:57→23:41)
[2018-12-09] MEDS: HEPARIN SODIUM,PORCINE 5,000 UNIT/ML 1 ML VIAL SQ SCH ×2 (09:07→20:50)
[2018-12-09] MEDS: GABAPENTIN 100 MG CAP PO SCH ×2 (09:08→20:51)
[2018-12-09] MEDS: clonazePAM 0.5 MG TAB PO SCH ×2 (09:08→20:51)
[2018-12-09] MEDS: VIT A,C & E-LUTEIN-MINERALS 1 EACH TAB PO SCH (09:08)
[2018-12-09] MEDS: ASCORBIC ACID 500 MG TAB PO SCH (09:08)
[2018-12-09] MEDS: FAMOTIDINE 20 MG TAB PO SCH (09:08)
[2018-12-09] MEDS: MULTIVITAMINS, THERA 1 EACH TAB PO SCH (09:08)
[2018-12-09] MEDS: CITALOPRAM HYDROBROMIDE 20 MG TAB PO SCH (09:08)
[2018-12-09] MEDS: CHOLECALCIFEROL 1,000 UNIT TAB PO SCH (09:09)
[2018-12-09] MEDS: cycloSPORINE 0.05% OPHTH 0.4 ML DROPERETTE BOTH EYES SCH ×2 (09:09→20:51)
--- NOTE | 2018-12-09 09:14 | US ---
EXAMINATION TYPE: US abdomen complete DATE OF EXAM: 12/09/2018 COMPARISON: NONE CLINICAL HISTORY: elevated LFts. EXAM MEASUREMENTS: Liver Length: 15.9 cm Gallbladder Wall: 0.4 cm CBD: 0.8 cm Spleen: 9.6 cm Right Kidney: 11.0 x 4.7 x 5.5 cm Left Kidney: 10.4 x 5.5 x 5.0 cm Pancreas: tail obscured by bowel gas, portions visualized wnl Liver: wnl Gallbladder: thickened wall, some possible adjacent free fluid Evidence for sonographic Schmidt's sign: CBD: dilated Spleen: wnl Right Kidney: possible mild hydro Left Kidney: limited views due to overlying bowel content, cyst measuring 3.4 x 3.1 x 3.0cm Upper IVC: wnl Abd Aorta: mostly obscure by bowel gas, proximal portions wnl Visualized portions of the pancreas are normal. The liver is normal in size without evidence of biliary dilatation. The gallbladder wall is thickened measuring 4 mm. No definite calculi are seen. This common hepatic d uct measures 8 mm. This is normal in this age group. There is mild fullness of the right renal pelvis. Limited views of the left kidney are normal. Visualized portions of aorta and IVC are normal. IMPRESSION: PLEASE CORRELATE CLINICALLY FOR CHRONIC ACALCULOUS CHOLECYSTITIS.
--- NOTE | 2018-12-09 11:02 | P.PN ---
Subjective Progress Note Date: 12/09/18 This is an 78-year-old female with a previous medical history significant for hypothyroidism, dry eyes, osteoarthritis, I suppose, chronic tobacco use and dependence with possible COPD, patient was in her usual state of health about the day before yesterday when she was in the bathroom she fell family ended up calling EMS for her to sit her up and the patient was able to ambulate fine without any issues, yesterday when she was trying to use her walker and trying to ambulating herself she could not even sit herself up but she could not even template using a walker with 2 people in front and back of her, patient was using the walker and suddenly she felt extremely weak in both lower extremity she was complaining of increased dysuria and she was somewhat short of breath with ambulation, family called EMS the patient was brought into the ER for evaluation, patient was found to have an elevated troponin and elevated white count and very bad urinary tract infection chest x-ray showed no cardio regularly and no infiltrate, lumbar x-ray did not show any evidence of acute fracture however it did show significant spondylosis of the lumbar spine, patient was started on IV antibiotic in the form of Levaquin and she was admitted to the hospital for evaluation urine cultures and blood cultures were obtained, patient blood culture today showed 2 g negative rods she was taken off her Levaquin and she was started on Zosyn 3.375 g IV piggyback every 8 hours since her blood cultures were negative she continues to have a temperature max at 103, she will be seen in consultation by infectious disease, she will be seen in consultation by cardiology as well, we have obtain a stat 12-lead EKG since I could not find her EKG from yesterday, echocardiogram will be obtained as well ultrasound of the abdomen would be obtained due to her elevated liver function test as well. This is could be all related to the sepsis picture at this time we will continue to monitor the patient very closely. 12/09: Patient is doing much better today did have another temperature max in the morning at 101.5 she was kept on Zosyn added vancomycin for broader spectrum antibiotic and repeated blood cultures 2, she is pain a lot better today she denies any chest pain or shortness breath she has no abdominal pain, nausea vomiting or diarrhea she seems to be turning around at this point in time awaiting the echocardiogram as well as ultrasound of the abdomen. Review of Systems Constitutional: Reports fatigue, Reports malaise, Reports poor appetite, Reports weakness Eyes: bilateral dry eye, denies blurred vision, denies bulging eye, denies decreased vision Ears: deny: decreased hearing Ears, nose, mouth and throat: Denies dysphagia, Denies swelling in throat, Denies sore throat Cardiovascular: Reports decreased exercise tolerance, Reports dyspnea on ex ertion, Reports shortness of breath, Denies chest pain, Denies lightheadedness, Denies rapid heart beat, Denies syncope Respiratory: Denies congestion, Denies cough, Denies cough with sputum, Denies hemoptysis, Denies home oxygen, Denies sleep apnea, Denies snoring, Denies w heezing Gastrointestinal: Reports loss of appetite, Denies abdominal pain, Denies bloating, Denies BRBPR, Denies heartburn, Denies melena, Denies nausea, Denies vomiting Genitourinary: Reports dysuria, Reports nocturia, Reports urgency, Reports urina ry frequency Menstruation: Reports post hysterectomy Musculoskeletal: Reports frequent falls, Reports gait dysfunction, Reports low back pain, Denies myalgias Musculoskeletal: absent: ankle pain, ankle stiffness, ankle swelling, elbow pain, elbow stiffness, elbow swelling, foot pain, foot stiffness, foot swelling, hand pain, hand stiffness, hand swelling, hip pain, hip stiffness, hip swelling, knee pain, knee stiffness, knee swelling, shoulder pain, shoulder stiffness, shoulder swelling, wrist pain, wrist stiffness, wrist swelling Integumentary: Denies pruritus, Denies rash Neurological: Denies numbness, Denies weakness Psychiatric: Reports anxiety, Reports depression Endocrine: Denies fatigue, Denies weight change Objective - Vital Signs Vital signs: Vital Signs Temp 99.8 F H 12/09/18 05:50 Pulse 76 12/09/18 05:50 Resp 18 12/09/18 04:00 BP 95/55 12/09/18 05:50 Pulse Ox 95 12/09/18 00:00 Intake & Output 12/08/18 12/09/18 12/09/18 18:59 06:59 18:59 Intake Total 354 1020 Output Total 1700 Balance -1346 1020 Intake: Intake, IV Titration 900 Amount Sodium Chloride 0.9% 1, 900 000 ml @ 75 mls/hr IV . [id number] [facility] Rx#:[id number] Oral 354 120 Output: Urine 1700 Other: # Voids 1 - Exam - Constitutional General appearance: average body habitus, mild distress - EENT Eyes: anicteric sclerae, EOMI, PERRLA, no ptosis, no scleral icterus, normal appearance ENT: hearing grossly normal, NA/AT, normal oropharynx, no thrush Ears: bilateral: normal - Neck Carotids: bilateral: upstroke normal Thyroid: bilateral: normal size - Respiratory Respiratory: bilateral: diminished, negative: dullness, rales, rhonchi, wheezing, prolonged expiration - Cardiovascular Rhythm: regular Heart sounds: normal: S1, S2 Abnormal Heart Sounds: systolic murmur, no S3 Gallop, no S4 Gallop - Gastrointestinal General gastrointestinal: normal bowel sounds, soft, no splenomegaly, no tenderness, no umbilical hernia, no ventral hernia - Integumentary Integumentary: normal, normal turgor - Neurologic Neurologic: CNII-XII intact - Musculoskeletal Musculoskeletal: generalized weakness, strength equal bilaterally - Psychiatric Psychiatric: A&O x's 3, appropriate affect, intact judgment & insight - Labs CBC & Chem 7: 12/09/18 06:34 12/09/18 06:34 Labs: Abnormal Lab Results - Last 24 Hours (Table) 12/08/18 12/08/18 12/08/18 Range/Units 07:04 15:19 15:19 MCHC (31.0-37.0) g/dL Plt Count (150-450) k/uL Lymphocytes # (1.0-4.8) k/uL D-Dimer 4.53 H (<0.60) mg/L FEU Sodium 133 L (137-145) mmol/L Carbon Dioxide 21 L (22-30) mmol/L BUN 27 H (7-17) mg/dL Creatinine 1.07 H (0.52-1.04) mg/dL Glucose 190 H (74-99) mg/dL AST 1214 H (14-36) U/L ALT 1177 H (9-52) U/L Troponin I 0.113 H* (0.000-0.034) ng/mL Total Protein 6.0 L (6.3-8.2) g/dL Albumin 3.0 L (3.5-5.0) g/dL 12/09/18 Range/Units 06:34 MCHC 30.9 L (31.0-37.0) g/dL Plt Count 126 L (150-450) k/uL Lymphocytes # 0.4 L (1.0-4.8) k/uL D-Dimer (<0.60) mg/L FEU Sodium (137-145) mmol/L Carbon Dioxide (22-30) mmol/L BUN (7-17) mg/dL Creatinine (0.52-1.04) mg/dL Glucose (74-99) mg/dL AST (14-36) U/L ALT (9-52) U/L Troponin I (0.000-0.034) ng/mL Total Protein (6.3-8.2) g/dL Albumin (3.5-5.0) g/dL Microbiology - Last 24 Hours (Table) 12/07/18 21:00 Urine Culture - Preliminary Urine,Voided Gram Neg Bacilli 12/07/18 22:41 Blood Culture Gram Stain - Preliminary Blood Blood Culture - Preliminary Escherichia coli 12/07/18 22:41 Blood Culture - Final Blood Assessment and Plan Assessment: Assessment and plan: 1. Urinary tract infection with sepsis and gram-negative bacteremia. Discontinue Levaquin, start the patient on Zosyn 3.375 g IV piggyback every 8 hours, repeated the blood cultures in the next 24-48 hours, IV fluid resuscitation the form of normal saline at 75 mL an hour, ID consultation Dr. Jane, monitor the patient very closely, added vancomycin due to persistent fever and repeated Blood cultures. 2. Mild dyspnea with elevated troponin without evidence of acute coronary syndrome. Stat EKG, continue patient on aspirin 81 mg orally once every day, echocardiogram for evaluation of LV function, obtain cardiology consultation, this is likely related to acute sepsis doubt any thrombo-embolic disease, CTA was negative for PE. Cardiology consult. 3. Acute kidney injury due to acute tubular necrosis. IV fluid resuscitation the form of normal saline 75 mL an hour monitor the patient CMP in the next 24 hours. 4. Elevated liver function tests of unclear etiology. Check ultrasound of the abdomen, discontinue Levaquin this is could be drug-induced hepatitis. 5. Hypothyroidism. Continue Synthroid 75 g orally once every day. 6. Chronic tobacco use and dependence. Smoking cessation and start the patient on nicotine patch 14 mg once every day. 7. Anxiety and depressive disorder. Continue citalopram and Klonopin. 8. Bilateral lower extremity neuropathy. Continue patient on gabapentin 200 mg orally twice every day. 9. Generalized weakness and inability to ambulate with gait dysfunction. Physical therapy evaluation. 10. Vitamin D deficiency. Continue vitamin D supplement. 11. Dry eyes. Continue Restasis. 12. Adult onset macular degeneration. Continue her supplements for 13. Spondylosis of the lumbar spine. Physical therapy evaluation tomorrow morning. 14. Thoracic Aortic Aneurysm about 4.1 cm . we will continue to monitor and will check Echocardiogram. 14. DVT prophylaxis. Heparin 5000 units subcutaneously every 8 hours . 15. GI prophylaxis. Continue with Pepcid. 16. prognosis is guarded.
--- NOTE | 2018-12-09 14:50 | P.CRDCN ---
<Marina Pacheco - Last Filed: 12/09/18 15:09> History of Present Illness Consult date: 12/09/18 Reason for Consult (text): Elevated troponin History of present illness: The patient is an 78-year-old female with past medical history of hypothyroid, osteoarthritis, and current smoker, who presents for frequent falls. She states she has fallen several times in the last several days. She states her initial fall was related to adjusting her foot where when she fell in the bathroom. Her most recent fall was related to her legs becoming extremely weak and "gave out from underneath of her." She also reports progressive weakness over the last week. Orthopedics x-rays negative for acute fracture. Urine studies positive for infection and she was febrile upon admission. WBC 5.6, hemoglobin 11.4, hematocrit 36.8, platelet 126, sodium 139, potassium 3.9, BUN 23, creatinine 1.16, AST 598, ALT 894, troponins 0.22, 0.15, 0.13, and d-dimer 4.53. CT of the chest negative for pulmonary emboli, however bibasilar atelectasis noted. No evidence of thoracic aortic dissection, however there is a 4.1 cm aneurysm of the ascending aorta. On exam the patient is resting comfortably up in her chair. She denies any chest pain, chest pressure, palpitations, dizziness, or lightheadedness. She denies any prodromal symptoms prior to her falls. She states her initial fall was just related to clumsiness. PAST MEDICAL HISTORY: Hypothyroid, osteoarthritis, and current smoker REVIEW OF SYSTEMS: No fever or chills. No cough or expectoration. No d iaphoresis. Patient denies headache, dizziness, blurred vision, double vision. Patient denies any stomach discomfort. No nausea, vomiting. No hematochezia. No hematemesis. Denies any black stools or blood in his stools. Denies dysuria or hematuria. Positive for muscle weakness. No lower extremity numbness. No chest discomfort. No shortness of breath. PHYSICAL EXAMINATION: This is an 78-year-old female in no apparent distress at the time of my examination. HEENT: Head is atraumatic, normocephalic. Pupils are equal, round. Sclerae anicteric. Conjunctivae are clear. Mucous membranes of the mouth are moist. Neck is supple. There is no jugular venous distention. No carotid bruit is heard. CHEST EXAMINATION: Lungs are clear to auscultation. No chest wall tenderness is noted on palpation or with deep breathing. HEART EXAMINATION: Heart regular rate and rhythm. S1, S2 heard. No murmurs, g allops or rub. ABDOMEN: Soft, nontender. Bowel sounds are heard. No organomegaly noted. EXTREMITIES: 2+ peripheral pulses with no evidence of peripheral edema and no calf tenderness noted. NEUROLOGIC EXAMINATION: Patient is awake, alert and oriented x3. LABORATORY DATA: WBC 5.6, hemoglobin 11.4, hematocrit 36.8, platelet 126, sodium 139, potassium 3.9, BUN 23, creatinine 1.16, AST 598, ALT 894, troponins 0.22, 0.15, 0.13, and d-dimer 4.53. FINAL ASSESSMENT AND PLAN: #1 abnormality in troponin with no significant rise and fall pattern, likely secondary to infection #2 urinary tract infection, gram-negative rods #3 frequent falls due to muscle weakness #4 elevated d-dimer, CT of the chest negative for pulmonary emboli #5 elevated liver enzymes, patient denies regular alcohol use or excessive Tylenol intake PLAN: We will continue to monitor blood pressure readings that she is mildly hypotensive. Awaiting echocardiogram. Suggest outpatient stress testing. Awaiting followup ECG. Past Medical History Past Medical History: Eye Disorder, Osteoarthritis (OA), Thyroid Disorder Additional Past Medical History / Comment(s): Osteoporosis History of Any Multi-Drug Resistant Organisms: None Reported Past Surgical History: Breast Surgery, Hysterectomy, Orthopedic Surgery Additional Past Surgical History / Comment(s): Cataract surgery, patial thyroidectomy, bilateral total knees, reconstruction on both feet, vein taken out of R. leg from groin to ankle, lumpectomy on left breast, biopsy of 2x lumps on right breast Past Anesthesia/Blood Transfusion Reactions: No Reported Reaction Past Psychological History: No Psychological Hx Reported Smoking Status: Current every day smoker (Patient smokes about 8-10 cigars a daily basis and she was a teenager.) Past Alcohol Use History: Rare Past Drug Use History: None Reported - Past Family History Mother Family Medical History: Cancer (Mother at age of 68 from pancreatic cancer.) Additional Family Medical History / Comment(s): pancreatic cancer Father Family Medical History: Cancer (Father at age of 62 from non-Hodgkin lymphoma.) Additional Family Medical History / Comment(s): lymphoma Brother(s) Family Medical History: No Reported History (Patient has one brother no major medical problems.) Sister(s) Family Medical History: No Reported History (Patient has 3 sisters no major medical problems.) Daughter(s) Family Medical History: No Reported History (Patient has one daughter no major medical problem.) Son(s) Family Medical History: No Reported History (Patient has 3 sons no major medical problems.) Medications and Allergies Home Medications Medication Instructions Recorded Confirmed Type Acetaminophen [Tylenol Extra 1,000 mg PO DAILY 12/07/18 12/07/18 History Strength] Ascorbic Acid [Vitamin C] 500 mg PO DAILY 12/07/18 12/07/18 History Cholecalciferol [Vitamin D3 (25 2,000 unit PO DAILY 12/07/18 12/07/18 History Mcg = 1000 Iu)] Citalopram Hydrobromide [CeleXA] 20 mg PO DAILY 12/07/18 12/07/18 History Gabapentin [Neurontin] 200 mg PO BID 12/07/18 12/07/18 History Levothyroxine Sodium [Synthroid] 75 mcg PO DAILY 12/07/18 12/07/18 History Multivitamins, Thera [Multivitamin 1 tab PO DAILY 12/07/18 12/07/18 History (formulary)] Vit A/Vit C/Vit E/Zinc/Copper 1 cap PO DAILY 12/07/18 12/07/18 History [ICAPS SOFTGEL] clonazePAM 0.5 mg PO BID 12/07/18 12/07/18 History cycloSPORINE [Restasis] 1 applicator BOTH EYES BID 12/07/18 12/07/18 History Allergies Allergy/AdvReac Type Severity Reaction Status Date / Time Latex, Natural Rubber Allergy Rash/Hives Verified 12/07/18 19:50 Physical Exam Vitals: Vital Signs Temp Pulse Pulse Resp BP Pulse Ox 12/09/18 11:41 80 12/09/18 11:30 84 12/09/18 07:46 84 12/09/18 07:36 80 12/09/18 07:00 97.9 F 87 16 96/54 97 12/09/18 05:50 99.8 F H 76 95/55 12/09/18 04:45 101.1 F H 79 100/58 12/09/18 04:00 18 12/09/18 00:00 98.5 F 81 18 103/63 95 12/08/18 23:33 99.9 F H 12/08/18 21:19 104 H 12/08/18 21:18 96 12/08/18 21:12 104 H 12/08/18 19:20 98.4 F 95 18 124/77 97 12/08/18 18:49 98 12/08/18 16:04 98.5 F 12/08/18 15:01 103.2 F H 12/08/18 14:53 103.1 F H 109 H 20 132/78 90 L Intake and Output 12/08/18 12/09/18 12/09/18 22:59 06:59 14:59 Intake Total 120 900 Output Total 900 Balance -780 900 Intake: Intake, IV Titration 900 Amount Sodium Chloride 0.9% 1, 900 000 ml @ 75 mls/hr IV . [id number] [facility] Rx#:[id number] Oral 120 Output: Urine 900 Other: # Voids 1 Results 12/09/18 06:34 12/09/18 06:34 Cardiac Enzymes 12/08/18 12/09/18 Range/Units 15:19 06:34 AST 1214 H 598 H (14-36) U/L CBC 12/09/18 Range/Units 06:34 WBC 5.6 (3.8-10.6) k/uL RBC 3.82 (3.80-5.40) m/uL Hgb 11.4 (11.4-16.0) gm/dL Hct 36.8 (34.0-46.0) % Plt Count 126 L (150-450) k/uL Comprehensive Metabolic Panel 12/08/18 12/09/18 Range/Units 15:19 06:34 Sodium 133 L 139 (137-145) mmol/L Potassium 4.1 3.9 (3.5-5.1) mmol/L Chloride 104 107 (98-107) mmol/L Carbon Dioxide 21 L 26 (22-30) mmol/L BUN 27 H 23 H (7-17) mg/dL Creatinine 1.07 H 1.16 H (0.52-1.04) mg/dL Glucose 190 H 96 (74-99) mg/dL Calcium 8.4 8.0 L (8.4-10.2) mg/dL AST 1214 H 598 H (14-36) U/L ALT 1177 H 894 H (9-52) U/L Alkaline Phosphatase 87 80 (38-126) U/L Total Protein 6.0 L 5.3 L (6.3-8.2) g/dL Albumin 3.0 L 2.6 L (3.5-5.0) g/dL Current Medications Generic Name Dose Route Start Last Admin Trade Name Freq PRN Reason Stop Dose Admin Albuterol/Ipratropium 3 ml 12/08/18 21:01 12/09/18 11:29 Duoneb 0.5 Mg-3 Mg/3 Ml Soln INHALATION 3 ml RT-QID DEX Administration Ascorbic Acid 500 mg 12/08/18 09:00 12/09/18 09:08 Vitamin C PO 500 mg DAILY DEX Administration Cholecalciferol 2,000 unit 12/08/18 09:00 12/09/18 09:09 Vitamin D3 (25 Mcg = 1000 Iu) PO 2,000 unit DAILY DEX Administration Citalopram Hydrobromide 20 mg 12/08/18 09:00 12/09/18 09:08 Celexa PO 20 mg DAILY DEX Administration Clonazepam 0.5 mg 12/08/18 09:00 12/09/18 09:08 Klonopin PO 0.5 mg BID DEX Administration Cyclosporine 1 drops 12/08/18 09:00 12/09/18 09:09 Restasis 0.05% Ophth Soln BOTH EYES 1 drops BID DEX Administration Famotidine 20 mg 12/08/18 09:00 12/09/18 09:08 Pepcid PO 20 mg DAILY DEX Administration Gabapentin 200 mg 12/08/18 09:00 12/09/18 09:08 Neurontin PO 200 mg BID DEX Administration Heparin Sodium (Porcine) 5,000 unit 12/08/18 09:00 12/09/18 09:07 Heparin SQ 5,000 unit Q12HR DEX Administration Piperacillin Sod/Tazobactam 100 mls @ 25 mls/hr 12/08/18 16:00 12/09/18 08:57 Sod 3.375 gm/ Sodium Chloride IVPB 25 mls/hr Q8HR DEX Administration Sodium Chloride 1,000 mls @ 75 mls/hr 12/08/18 15:15 12/09/18 06:03 Saline 0.9% IV 75 mls/hr .[id number] DEX Administration Ibuprofen 600 mg 12/08/18 17:55 12/09/18 04:43 Motrin PO 600 mg QID PRN Administration Fever Levothyroxine Sodium 75 mcg 12/08/18 06:30 12/09/18 09:09 Synthroid PO 75 mcg DAILY@0630 DEX Administration Multivitamins 1 each 12/08/18 09:00 12/09/18 09:08 Theragran PO 1 each DAILY DEX Administration Multivitamins/Minerals 1 each 12/08/18 09:00 12/09/18 09:08 Ivite PO 1 each DAILY DEX Administration Naloxone HCl 0.2 mg 12/07/18 23:15 Narcan IV Q2M PRN Opioid Reversal Intake and Output 12/08/18 12/09/18 12/09/18 22:59 06:59 14:59 Intake Total 120 900 Output Total 900 Balance -780 900 Intake: Intake, IV Titration 900 Amount Sodium Chloride 0.9% 1, 900 000 ml @ 75 mls/hr IV . [id number] [facility] Rx#:[id number] Oral 120 Output: Urine 900 Other: # Voids 1 12/09/18 06:34 12/09/18 06:34 <Brayden Ledezma - Last Filed: 12/09/18 21:54> History of Present Illness History of present illness: Patient interviewed History of recurrent falls No evidence for syncope Patient's blood pressure was low and she is being treated for infection Borderline troponins with normal cardiac enzymes This does not represent an acute coronary artery occlusive myocardial infarction/type 1 AK CPK levels to assess a ratio of CPK to troponins Physical Exam Vitals: Vital Signs Temp Pulse Pulse Resp BP Pulse Ox 12/09/18 20:20 94 12/09/18 20:12 89 12/09/18 19:45 98.4 F 102 H 14 100/64 96 12/09/18 17:05 80 12/09/18 16:51 78 95 12/09/18 15:00 97.8 F 88 16 105/66 94 L 12/09/18 11:41 80 12/09/18 11:30 84 12/09/18 07:46 84 12/09/18 07:36 80 12/09/18 07:00 97.9 F 87 16 96/54 97 12/09/18 05:50 99.8 F H 76 95/55 12/09/18 04:45 101.1 F H 79 100/58 12/09/18 04:00 18 12/09/18 00:00 98.5 F 81 18 103/63 95 12/08/18 23:33 99.9 F H Intake and Output 12/09/18 12/09/18 12/09/18 06:59 14:59 22:59 Intake Total 900 940 Balance 900 940 Intake: Intake, IV Titration 900 940 Amount Piperacillin-Tazobactam 3 100 .375 gm In Sodium Chloride 0.9% 100 ml @ 25 mls/hr IVPB Q8HR [facility] Rx# :[id number] Sodium Chloride 0.9% 1, 900 600 000 ml @ 75 mls/hr IV . [id number] [facility] Rx#:[id number] Vancomycin 1,000 mg In 240 Sodium Chloride 0.9% 250 ml @ 125 mls/hr IVPB ONCE ONE Rx#:[id number] Results 12/09/18 06:34 12/09/18 06:34 Cardiac Enzymes 12/09/18 12/09/18 Range/Units 06:34 15:28 AST 598 H (14-36) U/L CK-MB (CK-2) 1.9 (0.0-2.4) ng/mL CBC 12/09/18 Range/Units 06:34 WBC 5.6 (3.8-10.6) k/uL RBC 3.82 (3.80-5.40) m/uL Hgb 11.4 (11.4-16.0) gm/dL Hct 36.8 (34.0-46.0) % Plt Count 126 L (150-450) k/uL Comprehensive Metabolic Panel 12/09/18 Range/Units 06:34 Sodium 139 (137-145) mmol/L Potassium 3.9 (3.5-5.1) mmol/L Chloride 107 (98-107) mmol/L Carbon Dioxide 26 (22-30) mmol/L BUN 23 H (7-17) mg/dL Creatinine 1.16 H (0.52-1.04) mg/dL Glucose 96 (74-99) mg/dL Calcium 8.0 L (8.4-10.2) mg/dL AST 598 H (14-36) U/L ALT 894 H (9-52) U/L Alkaline Phosphatase 80 (38-126) U/L Total Protein 5.3 L (6.3-8.2) g/dL Albumin 2.6 L (3.5-5.0) g/dL Current Medications Generic Name Dose Route Start Last Admin Trade Name Freq PRN Reason Stop Dose Admin Albuterol/Ipratropium 3 ml 12/08/18 21:01 12/09/18 20:12 Duoneb 0.5 Mg-3 Mg/3 Ml Soln INHALATION 3 ml RT-QID DEX Administration Ascorbic Acid 500 mg 12/08/18 09:00 12/09/18 09:08 Vitamin C PO 500 mg DAILY DEX Administration Cholecalciferol 2,000 unit 12/08/18 09:00 12/09/18 09:09 Vitamin D3 (25 Mcg = 1000 Iu) PO 2,000 unit DAILY DEX Administration Citalopram Hydrobromide 20 mg 12/08/18 09:00 12/09/18 09:08 Celexa PO 20 mg DAILY DEX Administration Clonazepam 0.5 mg 12/08/18 09:00 12/09/18 20:51 Klonopin PO 0.5 mg BID DEX Administration Cyclosporine 1 drops 12/08/18 09:00 12/09/18 20:51 Restasis 0.05% Ophth Soln BOTH EYES 1 drops BID DEX Administration Famotidine 20 mg 12/08/18 09:00 12/09/18 09:08 Pepcid PO 20 mg DAILY DEX Administration Gabapentin 200 mg 12/08/18 09:00 12/09/18 20:51 Neurontin PO 200 mg BID DEX Administration Heparin Sodium (Porcine) 5,000 unit 12/08/18 09:00 12/09/18 20:50 Heparin SQ 5,000 unit Q12HR DEX Administration Piperacillin Sod/Tazobactam 100 mls @ 25 mls/hr 12/08/18 16:00 12/09/18 16:53 Sod 3.375 gm/ Sodium Chloride IVPB 25 mls/hr Q8HR DEX Administration Sodium Chloride 1,000 mls @ 75 mls/hr 12/08/18 15:15 12/09/18 20:51 Saline 0.9% IV 75 mls/hr .[id number] DEX Administration Ibuprofen 600 mg 12/08/18 17:55 12/09/18 16:53 Motrin PO 600 mg QID PRN Administration Fever Levothyroxine Sodium 75 mcg 12/08/18 06:30 12/09/18 09:09 Synthroid PO 75 mcg DAILY@0630 DEX Administration Multivitamins 1 each 12/08/18 09:00 12/09/18 09:08 Theragran PO 1 each DAILY DEX Administration Multivitamins/Minerals 1 each 12/08/18 09:00 12/09/18 09:08 Ivite PO 1 each DAILY DEX Administration Naloxone HCl 0.2 mg 12/07/18 23:15 Narcan IV Q2M PRN Opioid Reversal Intake and Output 12/09/18 12/09/18 12/09/18 06:59 14:59 22:59 Intake Total 900 940 Balance 900 940 Intake: Intake, IV Titration 900 940 Amount Piperacillin-Tazobactam 3 100 .375 gm In Sodium Chloride 0.9% 100 ml @ 25 mls/hr IVPB Q8HR [facility] Rx# :[id number] Sodium Chloride 0.9% 1, 900 600 000 ml @ 75 mls/hr IV . [id number] [facility] Rx#:[id number] Vancomycin 1,000 mg In 240 Sodium Chloride 0.9% 250 ml @ 125 mls/hr IVPB ONCE ONE Rx#:[id number] 12/09/18 06:34 12/09/18 06:34
--- NOTE | 2018-12-09 22:12 | P.CONS ---
History of Present Illness - Reason for Consult Consult date: 12/09/18 - Chief Complaint Weakness and fall - History of Present Illness Pleasant 78-year-old woman who has multiple medical troubles was having difficulties with ambulation as of late. It appears before her hospitalization EMS and then to her home because of weakness and fall. She was able to be lifte d and was thought to be well enough not to come to hospital. However the day of admission she was having to person since she still went to the floor and EMS was called. At that time there was evidence of significant weakness fever and the patient was complaining of significant dysuria. She relates to a history of multiple urinary tract infections. She has is admitted for treatment of underlying infection with urinary tract being the likely source. She at this point in time is feeling just slightly better. She has not having high-grade fevers or chills. Influenza testing was performed is negative and she does not have significant respiratory symptoms except for significant weakness. It is noted that she did have elevated troponins and cardiology is being consulted. Review of Systems Patient feels poorly she is weak difficulty ambulating HEENT:Denies headache or acute visual change. Denies sinus or mouth discomforts. Chronic joint pains. Denies significant oral cavity pain. Denies difficulty on swallowing. Lungs: She has chronic shortness of breath but denies cough or sputum production or hemoptysis Cardiovascular: Significant shortness of breath is noted dyspnea with exertion increasing weakness no true chest pain some chest wall pain which is not new Gastrointestinal:Denies nausea, vomiting, diarrhea, constipation, hematemesis, melena, hematochezia. No no significant change of bowel habit noticed. Musculoskeletal: Has chronic back pain and has significant lower extremity discomfort with arthralgia Skin: Denies new rash or lesions. No new ulcers or wounds are related.. Neuro: Denies headache or visual change. As noted developed significant weakness and fall prior to admission Psychiatric: Mood is poor Endocrine: Progressive fatigue has had minimal weight loss Past Medical History Past Medical History: Eye Disorder, Osteoarthritis (OA), Thyroid Disorder Additional Past Medical History / Comment(s): Osteoporosis History of Any Multi-Drug Resistant Organisms: None Reported Past Surgical History: Breast Surgery, Hysterectomy, Orthopedic Surgery Additional Past Surgical History / Comment(s): Cataract surgery, patial thyroidectomy, bilateral total knees, reconstruction on both feet, vein taken out of R. leg from groin to ankle, lumpectomy on left breast, biopsy of 2x lumps on right breast Past Anesthesia/Blood Transfusion Reactions: No Reported Reaction Past Psychological History: No Psychological Hx Reported Additional Psychological History / Comment(s): Remains an active smoker. 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 No travel. No animals Smoking Status: Current every day smoker (Patient smokes about 8-10 cigars a daily basis and she was a teenager.) Past Alcohol Use History: Rare Past Drug Use History: None Reported - Past Family History Mother Family Medical History: Cancer (Mother at age of 68 from pancreatic cancer.) Additional Family Medical History / Comment(s): pancreatic cancer Father Family Medical History: Cancer (Father at age of 62 from non-Hodgkin lymphoma.) Additional Family Medical History / Comment(s): lymphoma Brother(s) Family Medical History: No Reported History (Patient has one brother no major medical problems.) Sister(s) Family Medical History: No Reported History (Patient has 3 sisters no major medical problems.) Daughter(s) Family Medical History: No Reported History (Patient has one daughter no major medical problem.) Son(s) Family Medical History: No Reported History (Patient has 3 sons no major medical problems.) Medications and Allergies Home Medications and Allergies Comment(s): Current Medications Albuterol/Ipratropium (Duoneb 0.5 Mg-3 Mg/3 Ml Soln) 3 ml INHALATION RT-QID [facility] Last Admin: 12/09/18 20:12 Dose: 3 ml Documented by: Ascorbic Acid (Vitamin C) 500 mg PO DAILY [facility] Last Admin: 12/09/18 09:08 Dose: 500 mg Documented by: Cholecalciferol (Vitamin D3 (25 Mcg = 1000 Iu)) 2,000 unit PO DAILY [facility] Last Admin: 12/09/18 09:09 Dose: 2,000 unit Documented by: Citalopram Hydrobromide (Celexa) 20 mg PO DAILY [facility] Last Admin: 12/09/18 09:08 Dose: 20 mg Documented by: Clonazepam (Klonopin) 0.5 mg PO BID [facility] Last Admin: 12/09/18 20:51 Dose: 0.5 mg Documented by: Cyclosporine (Restasis 0.05% Ophth Soln) 1 drops BOTH EYES BID [facility] Last Admin: 12/09/18 20:51 Dose: 1 drops Documented by: Famotidine (Pepcid) 20 mg PO DAILY [facility] Last Admin: 12/09/18 09:08 Dose: 20 mg Documented by: Gabapentin (Neurontin) 200 mg PO BID [facility] Last Admin: 12/09/18 20:51 Dose: 200 mg Documented by: Heparin Sodium (Porcine) (Heparin) 5,000 unit SQ Q12HR [facility] Last Admin: 12/09/18 20:50 Dose: 5,000 unit Documented by: Piperacillin Sod/Tazobactam (Sod 3.375 gm/ Sodium Chloride) 100 mls @ 25 mls/hr IVPB Q8HR [facility] Last Admin: 12/09/18 16:53 Dose: 25 mls/hr Documented by: Sodium Chloride (Saline 0.9%) 1,000 mls @ 75 mls/hr IV .[id number] [facility] Last Admin: 12/09/18 20:51 Dose: 75 mls/hr Documented by: Ibuprofen (Motrin) 600 mg PO QID PRN PRN Reason: Fever Last Admin: 12/09/18 16:53 Dose: 600 mg Documented by: Levothyroxine Sodium (Synthroid) 75 mcg PO DAILY@0630 [facility] Last Admin: 12/09/18 09:09 Dose: 75 mcg Documented by: Multivitamins (Theragran) 1 each PO DAILY [facility] Last Admin: 12/09/18 09:08 Dose: 1 each Documented by: Multivitamins/Minerals (Ivite) 1 each PO DAILY [facility] Last Admin: 12/09/18 09:08 Dose: 1 each Documented by: Naloxone HCl (Narcan) 0.2 mg IV Q2M PRN PRN Reason: Opioid Reversal Home Medications Medication Instructions Recorded Confirmed Type Acetaminophen [Tylenol Extra 1,000 mg PO DAILY 12/07/18 12/07/18 History Strength] Ascorbic Acid [Vitamin C] 500 mg PO DAILY 12/07/18 12/07/18 History Cholecalciferol [Vitamin D3 (25 2,000 unit PO DAILY 12/07/18 12/07/18 History Mcg = 1000 Iu)] Citalopram Hydrobromide [CeleXA] 20 mg PO DAILY 12/07/18 12/07/18 History Gabapentin [Neurontin] 200 mg PO BID 12/07/18 12/07/18 History Levothyroxine Sodium [Synthroid] 75 mcg PO DAILY 12/07/18 12/07/18 History Multivitamins, Thera [Multivitamin 1 tab PO DAILY 12/07/18 12/07/18 History (formulary)] Vit A/Vit C/Vit E/Zinc/Copper 1 cap PO DAILY 12/07/18 12/07/18 History [ICAPS SOFTGEL] clonazePAM 0.5 mg PO BID 12/07/18 12/07/18 History cycloSPORINE [Restasis] 1 applicator BOTH EYES BID 12/07/18 12/07/18 History Allergies Allergy/AdvReac Type Severity Reaction Status Date / Time Latex, Natural Rubber Allergy Rash/Hives Verified 12/07/18 19:50 Physical Exam Vitals: Vital Signs Temp Pulse Pulse Resp BP Pulse Ox 12/09/18 20:20 94 12/09/18 20:12 89 12/09/18 19:45 98.4 F 102 H 14 100/64 96 12/09/18 17:05 80 12/09/18 16:51 78 95 12/09/18 15:00 97.8 F 88 16 105/66 94 L 12/09/18 11:41 80 12/09/18 11:30 84 12/09/18 07:46 84 12/09/18 07:36 80 12/09/18 07:00 97.9 F 87 16 96/54 97 12/09/18 05:50 99.8 F H 76 95/55 12/09/18 04:45 101.1 F H 79 100/58 12/09/18 04:00 18 12/09/18 00:00 98.5 F 81 18 103/63 95 12/08/18 23:33 99.9 F H Intake and Output 12/09/18 12/09/18 12/09/18 06:59 14:59 22:59 Intake Total 900 940 Balance 900 940 Intake: Intake, IV Titration 900 940 Amount Piperacillin-Tazobactam 3 100 .375 gm In Sodium Chloride 0.9% 100 ml @ 25 mls/hr IVPB Q8HR DEX Rx# :[id number] Sodium Chloride 0.9% 1, 900 600 000 ml @ 75 mls/hr IV . [id number] DEX Rx#:[id number] Vancomycin 1,000 mg In 240 Sodium Chloride 0.9% 250 ml @ 125 mls/hr IVPB ONCE ONE Rx#:[id number] 78-year-old woman is week and he'll but has improved since admission HEENT: Anicteric conjunctiva are pink and moist nasal mucosa grossly intact without significant lesions, there is no thrush. Neck: The neck is supple without significant lymphadenopathy or thyromegaly. Lungs: There are symmetrical air entry with wheeze as Ritalin feels no bronchial sounds all dullness or egophony Heart: Irregular with a soft S4. There is no significant murmur click or rub, PMI was nondisplaced. Abdomen: Mildly obese, Positive bowel sounds soft and nontender without palpable masses or organomegaly. There was no guarding or rebound. She does have distinct suprapubic tenderness there is no significant flank tenderness Extremities: The upper extremities have excellent pulses they are symmetric, no significant petechiae or telangiectasia. No splinter hemorrhages were noted. She does have evidence of 2+ edema no open ulcerations Neuro: Awake alert oriented to person place and time. There are no acute new gross focal sensory motor deficits. Results CBC & Chem 7: 12/09/18 06:34 12/09/18 06:34 Labs: Abnormal Lab Results - Last 24 Hours (Table) 12/09/18 12/09/18 Range/Units 06:34 06:34 MCHC 30.9 L (31.0-37.0) g/dL Plt Count 126 L (150-450) k/uL Lymphocytes # 0.4 L (1.0-4.8) k/uL BUN 23 H (7-17) mg/dL Creatinine 1.16 H (0.52-1.04) mg/dL Calcium 8.0 L (8.4-10.2) mg/dL AST 598 H (14-36) U/L ALT 894 H (9-52) U/L Total Protein 5.3 L (6.3-8.2) g/dL Albumin 2.6 L (3.5-5.0) g/dL Microbiology - Last 24 Hours (Table) 12/07/18 22:41 Blood Culture Gram Stain - Preliminary Blood Blood Culture - Preliminary Escherichia coli 12/07/18 21:00 Urine Culture - Preliminary Urine,Voided Gram Neg Bacilli Laboratory Results WBC 5.6 k/uL (3.8-10.6) 12/09/18 06:34 RBC 3.82 m/uL (3.80-5.40) 12/09/18 06:34 Hgb 11.4 gm/dL (11.4-16.0) 12/09/18 06:34 Hct 36.8 % (34.0-46.0) 12/09/18 06:34 MCV 96.4 fL (80.0-100.0) 12/09/18 06:34 MCH 29.8 pg (25.0-35.0) 12/09/18 06:34 MCHC 30.9 g/dL (31.0-37.0) L 12/09/18 06:34 RDW 13.7 % (11.5-15.5) 12/09/18 06:34 Plt Count 126 k/uL (150-450) L 12/09/18 06:34 Neutrophils % 87 % 12/09/18 06:34 Lymphocytes % 7 % 12/09/18 06:34 Monocytes % 4 % 12/09/18 06:34 Eosinophils % 0 % 12/09/18 06:34 Basophils % 0 % 12/09/18 06:34 Neutrophils # 4.9 k/uL (1.3-7.7) 12/09/18 06:34 Lymphocytes # 0.4 k/uL (1.0-4.8) L 12/09/18 06:34 Monocytes # 0.2 k/uL (0-1.0) 12/09/18 06:34 Eosinophils # 0.0 k/uL (0-0.7) 12/09/18 06:34 Basophils # 0.0 k/uL (0-0.2) 12/09/18 06:34 PT 10.3 sec (9.0-12.0) 12/07/18 20:13 INR 1.0 (<1.2) 12/07/18 20:13 APTT 26.9 sec (22.0-30.0) 12/07/18 20:13 D-Dimer 4.53 mg/L FEU (<0.60) H 12/08/18 15:19 Sodium 139 mmol/L (137-145) 12/09/18 06:34 Potassium 3.9 mmol/L (3.5-5.1) 12/09/18 06:34 Chloride 107 mmol/L (98-107) 12/09/18 06:34 Carbon Dioxide 26 mmol/L (22-30) 12/09/18 06:34 Anion Gap 6 mmol/L 12/09/18 06:34 BUN 23 mg/dL (7-17) H 12/09/18 06:34 Creatinine 1.16 mg/dL (0.52-1.04) H 12/09/18 06:34 Est GFR (CKD-EPI)AfAm 52 (>60 ml/min/1.73 sqM) 12/09/18 06:34 Est GFR (CKD-EPI)NonAf 45 (>60 ml/min/1.73 sqM) 12/09/18 06:34 Glucose 96 mg/dL (74-99) 12/09/18 06:34 Plasma Lactic Acid Trip 1.1 mmol/L (0.7-2.0) 12/07/18 20:13 Calcium 8.0 mg/dL (8.4-10.2) L 12/09/18 06:34 Total Bilirubin 0.5 mg/dL (0.2-1.3) 12/09/18 06:34 AST 598 U/L (14-36) H 12/09/18 06:34 ALT 894 U/L (9-52) H 12/09/18 06:34 Alkaline Phosphatase 80 U/L (38-126) 12/09/18 06:34 CK-MB (CK-2) 1.9 ng/mL (0.0-2.4) 12/09/18 15:28 Troponin I 0.113 ng/mL (0.000-0.034) H* 12/08/18 07:04 Total Protein 5.3 g/dL (6.3-8.2) L 12/09/18 06:34 Albumin 2.6 g/dL (3.5-5.0) L 12/09/18 06:34 Urine Color Yellow 12/07/18 21:00 Urine Appearance Cloudy (Clear) H 12/07/18 21:00 Urine pH 6.0 (5.0-8.0) 12/07/18 21:00 Ur Specific [place] 1.015 (1.001-1.035) 12/07/18 21:00 Urine Protein 2+ (Negative) H 12/07/18 21:00 Urine Glucose (UA) Negative (Negative) 12/07/18 21:00 Urine Ketones Negative (Negative) 12/07/18 21:00 Urine Blood Moderate (Negative) H 12/07/18 21:00 Urine Nitrite Positive (Negative) H 12/07/18 21:00 Urine Bilirubin Negative (Negative) 12/07/18 21:00 Urine Urobilinogen <2.0 mg/dL (<2.0) 12/07/18 21:00 Ur Leukocyte Esterase Large (Negative) H 12/07/18 21:00 Urine RBC 12 /hpf (0-5) H 12/07/18 21:00 Urine WBC >182 /hpf (0-5) H 12/07/18 21:00 Urine WBC Clumps Many /hpf (None) H 12/07/18 21:00 Ur Squamous Epith Cells 3 /hpf (0-4) 12/07/18 21:00 Urine Bacteria Many /hpf (None) H 12/07/18 21:00 Influenza Type A RNA Not Detected (Not Detectd) 12/07/18 20:30 Influenza Type B (PCR) Not Detected (Not Detectd) 12/07/18 20:30 Microbiology 12/07/18 22:41 Blood Blood Culture Gram Stain - Preliminary 12/07/18 22:41 Blood Blood Culture - Preliminary Escherichia coli 12/07/18 21:00 Urine,Voided Urine Culture - Preliminary Gram Neg Bacilli 12/07/18 22:41 Blood Blood Culture - Final Assessment and Plan (1) Bacteremia due to Gram-negative bacteria Narrative/Plan: 78-year-old female presents to Hospital from home with increasing weakness and fall in the home setting. The laboratory has stated that there is evidence of gram-negative bacilli in her urine and she has a positive blood culture with E. coli noted by [facility]. Await the identification data further. Given the level of her illness the patient had been started on Levaquin but appropriately was switched to Zosyn until there is further data given concerns about drug resistant pathogen. May need further antibiotic alteration depending on the findings. She fortunately is feeling better since she is receiving hydration and antibiotic therapy. She still has symptomatic urinary discomfort. Course of antibiotic therapy will be directed as data becomes available. She fortunately is considerably more comfortable at this point in time. Her renal failure is improving. Her flu was negative. Her leukocytosis is already improving from 16.5-5.6. There has been a drop in her platelets which could be from her gram-negative bacteremia and is being monitored. We'll alter antibiotic therapy if it further decreases. Current Visit: Yes Status: Acute Code(s): R78.81 - BACTEREMIA SNOMED Code(s): 796352504941 (2) Chronic kidney disease Current Visit: Yes Status: Acute Code(s): N18.9 - CHRONIC KIDNEY DISEASE, UNSPECIFIED SNOMED Code(s): 201331507 (3) Elevated troponin Current Visit: Yes Status: Acute Code(s): R79.89 - OTHER SPECIFIED ABNORMAL FINDINGS OF BLOOD CHEMISTRY SNOMED Code(s): 182208743 (4) Urinary tract infection Current Visit: Yes Status: Acute Code(s): N39.0 - URINARY TRACT INFECTION, SITE NOT SPECIFIED SNOMED Code(s): 33581515
[2018-12-10] MEDS: LEVOTHYROXINE 75 MCG TAB PO SCH (05:46)
[2018-12-10] MEDS: PIPERACILLIN-TAZOBACTAM 3.375 GM in SODIUM CHLORIDE 0.9% 100 ML IVPB SCH ×3 (08:44→23:32)
[2018-12-10] MEDS: clonazePAM 0.5 MG TAB PO SCH ×2 (08:45→20:13)
[2018-12-10] MEDS: GABAPENTIN 100 MG CAP PO SCH ×2 (08:45→20:13)
[2018-12-10] MEDS: IBUPROFEN 600 MG TAB PO PRN (08:45)
[2018-12-10] MEDS: FAMOTIDINE 20 MG TAB PO SCH (08:45)
[2018-12-10] MEDS: CHOLECALCIFEROL 1,000 UNIT TAB PO SCH (08:45)
[2018-12-10] MEDS: CITALOPRAM HYDROBROMIDE 20 MG TAB PO SCH (08:45)
[2018-12-10] MEDS: VIT A,C & E-LUTEIN-MINERALS 1 EACH TAB PO SCH (08:45)
[2018-12-10] MEDS: MULTIVITAMINS, THERA 1 EACH TAB PO SCH (08:45)
[2018-12-10] MEDS: ASCORBIC ACID 500 MG TAB PO SCH (08:45)
[2018-12-10] MEDS: HEPARIN SODIUM,PORCINE 5,000 UNIT/ML 1 ML VIAL SQ SCH ×2 (08:46→20:14)
[2018-12-10] MEDS: cycloSPORINE 0.05% OPHTH 0.4 ML DROPERETTE BOTH EYES SCH ×2 (08:46→20:14)
[2018-12-10] MEDS: IPRATROPIUM-ALBUTEROL 3 ML NEB INHALATION SCH ×4 (09:01→20:15)
--- NOTE | 2018-12-10 11:00 | ECHOF ---
Referral Reason:LVfunction MEASUREMENTS -------- HEIGHT: 162.6 cm WEIGHT: 81.6 kg BP: 119/74 RVIDd: 3.0 cm (< 3.3) IVSd: 1.4 cm (0.6 - 1.1) LVIDd: 3.1 cm (3.9 - 5.3) LVPWd: 1.9 cm (0.6 - 1.1) IVSs: 2.0 cm LVIDs: 2.2 cm LVPWs: 1.9 cm LAESV Index (A-L): 17.85 ml/m Ao Diam: 3.3 cm (2.0 - 3.7) AV Cusp: 2.4 cm (1.5 - 2.6) LA Diam: 3.2 cm (2.7 - 3.8) MV EXCURSION: 9.718 mm (> 18.000) MV EF SLOPE: 36 mm/s (70 - 150) EPSS: 1.5 cm MV E Reyes: 0.87 m/s MV DecT: 195 ms MV A Reyes: 0.90 m/s MV E/A Ratio: 0.97 RAP: 20.00 mmHg RVSP: 53.04 mmHg FINDINGS -------- Sinus rhythm with extra systolic beats. This was a technically adequate study. The left ventricular size is normal. There is moderate concentric left ventricular hypertrophy. O verall left ventricular systolic function is normal with, an EF between 55 - 60 %. Normal LAP Grade 1 Diastolic Dysfunction. The right ventricle is normal in size. The left atrial size is normal. Normal LA size by volume 22+/-6 ml/m2. The right atrial size is normal. The aortic valve is trileaflet and appears structurally normal. The mitral valve is normal. The mitral valve leaflets are mildly thickened. Mild mitral annular c alcification present. Mild mitral regurgitation is present. The tricuspid valve appears structurally normal. Severe tricuspid regurgitation present. There is moderate pulmonary hypertension. The right ventricular systolic pressure, as measured by Doppler, is 53.04mmHg. There is no pulmonic regurgitation present. The aortic root size is normal. The inferior vena cava is dilated with no significant inspiratory collapse which is consistent estima cecile right atrial pressure of >20 mmHg. There is no pericardial effusion. CONCLUSIONS -------- 1. Sinus rhythm with extra systolic beats. 2. This was a technically adequate study. 3. The left ventricular size is normal. 4. There is moderate concentric left ventricular hypertrophy. 5. Overall left ventricular systolic function is normal with, an EF between 55 - 60 %. 6. Normal LAP Grade 1 Diastolic Dysfunction. 7. The right ventricle is normal in size. 8. The left atrial size is normal. 9. Normal LA size by volume 22+/-6 ml/m2. 10. The right atrial size is normal. 11. The aortic valve is trileaflet and appears structurally normal. 12. The mitral valve is normal. 13. The mitral valve leaflets are mildly thickened. 14. Mild mitral annular calcification present. 15. Mild mitral regurgitation is present. 16. The tricuspid valve appears structurally normal. 17. Severe tricuspid regurgitation present. 18. There is moderate pulmonary hypertension. 19. The right ventricular systolic pressure, as measured by Doppler, is 53.04mmHg. 20. There is no pulmonic regurgitation present. 21. The aortic root size is normal. 22. The inferior vena cava is dilated with no significant inspiratory collapse which is consistent es timated right atrial pressure of >20 mmHg. 23. There is no pericardial effusion. COMPUTER SALESPERSON RET[employer]: Yohana De León RDCS
--- NOTE | 2018-12-10 13:28 | CDI ---
Documentation Clarification Form Date: 12/10/2018 1:21:51 PM From: Tete AguirreRiosEVIN hoang, CCDS Admit Date: 12/09/2018 12:10:00 PM Patient Name: Ania Henry Visit Number: [id number] Discharge Date: ATTENTION: The Clinical Documentation Specialists (CDI) and [facility] Coding Staff appreciate your assistance in clarifying documentation. Please respond to the clarification below the line at the bottom and electronically sign. The CDI & [facility] Coding staff will review the response and follow-up if needed. Please note: Queries are made part of the Legal Health Record. If you have any questions, please contact the author of this message via ITS. Dr. Tico Jane: Per the ED note & the Infectious Disease consult: Chronic kidney disease is documented without further specificity. History/Risk Factors: UTIs, Hypothyroidism status post partial thyroidectomy, Smoker, anxiety & depressive disorder, bilateral lower extremity neuropathy, Vit D deficiency, adult onset macular degeneration & spondylosis of the lumbar spine. Clinical Indicators: Presented with weakness & dyspnea. Diagnosed with Sepsis & UTI. LAB: BUN 34 - 27 - 23; Cr 1.27^ - 1.07^ - 1.16^; GFR 40 - 49 - 45 Patients Baseline BUN/CR/GFR: unknown or not documented. Nephrology has not been consulted. Treatment: IV fluid bolus, IV Levaquin, IV fluid bolus, IV Benadryl, IV Pepcid, INH Albuterol In order to capture the severity of condition, please clarify if the condition signifies: CKD Stage 2 (GFR 60-89) CKD Stage 3 (GFR 30-59) CKD Stage 4 (GFR 15-29) Other, please specify Unable to determine (Last Revision: May 2017) Chronic Kidney Disease Stage 3 present on admission MTDD
[2018-12-10] MEDS: SODIUM CHLORIDE 0.9% 1,000 ML IV SCH ×2 (20:07→20:14)
[2018-12-10] MEDS: METOPROLOL TARTRATE 25 MG TAB PO SCH (20:13)
--- NOTE | 2018-12-10 23:56 | P.PN ---
Subjective Progress Note Date: 12/10/18 Pleasant 78-year-old woman who has multiple medical troubles was having difficulties with ambulation as of late. It appears before her hospitalization EMS and then to her home because of weakness and fall. She was able to be lifted and was thought to be well enough not to come to hospital. However the day of admission she was having to person since she still went to the floor and EMS was called. At that time there was evidence of significant weakness fever and the patient was complaining of significant dysuria. She relates to a history of multiple urinary tract infections. She has is admitted for treatment of underlying infection with urinary tract being the likely source. She at this point in time is feeling just slightly better. She has not having high-grade fevers or chills. Influenza testing was performed is negative and she does not have significant respiratory symptoms except for significant weakness. It is noted that she did have elevated troponins and cardiology is being consulted. 12/10/2018 the patient is starting to feel better. She's having no further fever. Urinary frequency is improved. Is being followed by cardiology. There is evidence of the positive urine and blood culture same pathogen. Son is present and they do relate that she is feeling better. Objective - Vital Signs Vital signs: Vital Signs Temp 98.5 F 12/10/18 19:11 Pulse 78 12/10/18 20:38 Resp 16 12/10/18 19:11 BP 118/74 12/10/18 19:11 Pulse Ox 95 12/10/18 19:11 Intake & Output 12/10/18 12/10/18 12/11/18 06:59 18:59 06:59 Intake Total 750 652 Balance 750 652 Intake: Intake, IV Titration 750 Amount Sodium Chloride 0.9% 1, 750 000 ml @ 75 mls/hr IV . [id number] [facility] Rx#:[id number] Oral 652 Other: Voiding Method Toilet Toilet Diaper Diaper # Voids 2 1 1 # Bowel Movements 1 - Exam 78-year-old woman is feeling stronger has been up to the bathroom with the help of the walker HEENT: Anicteric conjunctiva are pink and moist nasal mucosa grossly intact without significant lesions, there is no thrush. Neck: The neck is supple without significant lymphadenopathy or thyromegaly. Lungs: There are symmetrical air entry with wheeze as Ritalin feels no bronchial sounds all dullness or egophony Heart: Irregular with a soft S4. There is no significant murmur click or rub, PMI was nondisplaced. Abdomen: Mildly obese, Positive bowel sounds soft and nontender without palpable masses or organomegaly. There was no guarding or rebound. She does have distinct suprapubic tenderness there is no significant flank tenderness Extremities: The upper extremities have excellent pulses they are symmetric, no significant petechiae or telangiectasia. No splinter hemorrhages were noted. She does have evidence of 2+ edema no open ulcerations Neuro: Awake alert oriented to person place and time. There are no acute new gross focal sensory motor deficits. - Labs CBC & Chem 7: 12/09/18 06:34 12/09/18 06:34 Labs: Microbiology - Last 24 Hours (Table) 12/07/18 22:41 Blood Culture Gram Stain - Final Blood Blood Culture - Final Escherichia coli 12/07/18 21:00 Urine Culture - Final Urine,Voided Escherichia coli Laboratory Results WBC 5.6 k/uL (3.8-10.6) 12/09/18 06:34 RBC 3.82 m/uL (3.80-5.40) 12/09/18 06:34 Hgb 11.4 gm/dL (11.4-16.0) 12/09/18 06:34 Hct 36.8 % (34.0-46.0) 12/09/18 06:34 MCV 96.4 fL (80.0-100.0) 12/09/18 06:34 MCH 29.8 pg (25.0-35.0) 12/09/18 06:34 MCHC 30.9 g/dL (31.0-37.0) L 12/09/18 06:34 RDW 13.7 % (11.5-15.5) 12/09/18 06:34 Plt Count 126 k/uL (150-450) L 12/09/18 06:34 Neutrophils % 87 % 12/09/18 06:34 Lymphocytes % 7 % 12/09/18 06:34 Monocytes % 4 % 12/09/18 06:34 Eosinophils % 0 % 12/09/18 06:34 Basophils % 0 % 12/09/18 06:34 Neutrophils # 4.9 k/uL (1.3-7.7) 12/09/18 06:34 Lymphocytes # 0.4 k/uL (1.0-4.8) L 12/09/18 06:34 Monocytes # 0.2 k/uL (0-1.0) 12/09/18 06:34 Eosinophils # 0.0 k/uL (0-0.7) 12/09/18 06:34 Basophils # 0.0 k/uL (0-0.2) 12/09/18 06:34 PT 10.3 sec (9.0-12.0) 12/07/18 20:13 INR 1.0 (<1.2) 12/07/18 20:13 APTT 26.9 sec (22.0-30.0) 12/07/18 20:13 D-Dimer 4.53 mg/L FEU (<0.60) H 12/08/18 15:19 Sodium 139 mmol/L (137-145) 12/09/18 06:34 Potassium 3.9 mmol/L (3.5-5.1) 12/09/18 06:34 Chloride 107 mmol/L (98-107) 12/09/18 06:34 Carbon Dioxide 26 mmol/L (22-30) 12/09/18 06:34 Anion Gap 6 mmol/L 12/09/18 06:34 BUN 23 mg/dL (7-17) H 12/09/18 06:34 Creatinine 1.16 mg/dL (0.52-1.04) H 12/09/18 06:34 Est GFR (CKD-EPI)AfAm 52 (>60 ml/min/1.73 sqM) 12/09/18 06:34 Est GFR (CKD-EPI)NonAf 45 (>60 ml/min/1.73 sqM) 12/09/18 06:34 Glucose 96 mg/dL (74-99) 12/09/18 06:34 Plasma Lactic Acid Trip 1.1 mmol/L (0.7-2.0) 12/07/18 20:13 Calcium 8.0 mg/dL (8.4-10.2) L 12/09/18 06:34 Total Bilirubin 0.5 mg/dL (0.2-1.3) 12/09/18 06:34 AST 598 U/L (14-36) H 12/09/18 06:34 ALT 894 U/L (9-52) H 12/09/18 06:34 Alkaline Phosphatase 80 U/L (38-126) 12/09/18 06:34 CK-MB (CK-2) 1.9 ng/mL (0.0-2.4) 12/09/18 15:28 Troponin I 0.113 ng/mL (0.000-0.034) H* 12/08/18 07:04 Total Protein 5.3 g/dL (6.3-8.2) L 12/09/18 06:34 Albumin 2.6 g/dL (3.5-5.0) L 12/09/18 06:34 Urine Color Yellow 12/07/18 21:00 Urine Appearance Cloudy (Clear) H 12/07/18 21:00 Urine pH 6.0 (5.0-8.0) 12/07/18 21:00 Ur Specific Kirby 1.015 (1.001-1.035) 12/07/18 21:00 Urine Protein 2+ (Negative) H 12/07/18 21:00 Urine Glucose (UA) Negative (Negative) 12/07/18 21:00 Urine Ketones Negative (Negative) 12/07/18 21:00 Urine Blood Moderate (Negative) H 12/07/18 21:00 Urine Nitrite Positive (Negative) H 12/07/18 21:00 Urine Bilirubin Negative (Negative) 12/07/18 21:00 Urine Urobilinogen <2.0 mg/dL (<2.0) 12/07/18 21:00 Ur Leukocyte Esterase Large (Negative) H 12/07/18 21:00 Urine RBC 12 /hpf (0-5) H 12/07/18 21:00 Urine WBC >182 /hpf (0-5) H 12/07/18 21:00 Urine WBC Clumps Many /hpf (None) H 12/07/18 21:00 Ur Squamous Epith Cells 3 /hpf (0-4) 12/07/18 21:00 Urine Bacteria Many /hpf (None) H 12/07/18 21:00 Influenza Type A RNA Not Detected (Not Detectd) 12/07/18 20:30 Influenza Type B (PCR) Not Detected (Not Detectd) 12/07/18 20:30 Microbiology 12/07/18 22:41 Blood Blood Culture Gram Stain - Final 12/07/18 22:41 Blood Blood Culture - Final Escherichia coli 12/07/18 21:00 Urine,Voided Urine Culture - Final Escherichia coli 12/07/18 22:41 Blood Blood Culture - Final Assessment and Plan (1) Bacteremia due to Gram-negative bacteria Narrative/Plan: 78-year-old female presents to Hospital from home with increasing weakness and fall in the home setting. The laboratory has stated that there is evidence of gram-negative bacilli in her urine and she has a positive blood culture with E. coli noted by [facility]. Await the identification data further. Given the level of her illness the patient had been started on Levaquin but appropriately was switched to Zosyn until there is further data given concerns about drug resistant pathogen. May need further antibiotic alteration depending on the findings. She fortunately is feeling better since she is receiving hydration and antibiotic therapy. She still has symptomatic urinary discomfort. Course of antibiotic therapy will be directed as data becomes available. She fortunately is considerably more comfortable at this point in time. Her renal failure is improving. Her flu was negative. Her leukocytosis is already improving from 16.5-5.6. There has been a drop in her platelets which could be from her gram-negative bacteremia and is being monitored. We'll alter antibiotic therapy if it further decreases. 12/10/2018 the patient is feeling better today. She's been up and walking with a single person education assistant. Nursing staff relate that she's been up in the chair and is doing a little bit better today. The patient feels stronger and denies new difficulties. His leukocytosis has improved. Responding well to current antibiotic therapy of Zosyn. There is evidence of E. coli of urine and blood it is not a resistant pathogen. Antibiotic therapy de-escalate Rocephin until she is ready for discharge to home. When she is deemed a candidate for going home Levaquin therapy 500 mg a day will be planned for the 14 days for the bacteremic urinary tract infection. The patient contemplating going to rehab however her apparently will be having some outpatient surgery later this week and she would like to go to home since she is feeling better. Physical therapy will do further evaluation and determine if she is able to sit stand and ambulate unassisted. She has had help from her family at her adult son who is been helping is on a layoff and could be called back to work at any time. Follow-up CBC requested to ensure that her thrombocytopenia has improved as her sepsis has improved. Current Visit: Yes Status: Acute Code(s): R78.81 - BACTEREMIA SNOMED Code(s): 098543222455 (2) Chronic kidney disease Current Visit: Yes Status: Acute Code(s): N18.9 - CHRONIC KIDNEY DISEASE, UNSPECIFIED SNOMED Code(s): 110900823 (3) Elevated troponin Current Visit: Yes Status: Acute Code(s): R79.89 - OTHER SPECIFIED ABNORMAL FINDINGS OF BLOOD CHEMISTRY SNOMED Code(s): 755638029 (4) Urinary tract infection Current Visit: Yes Status: Acute Code(s): N39.0 - URINARY TRACT INFECTION, SITE NOT SPECIFIED SNOMED Code(s): 51103892
[2018-12-11] MEDS: LEVOTHYROXINE 75 MCG TAB PO SCH (05:21)
[2018-12-11] MEDS: IPRATROPIUM-ALBUTEROL 3 ML NEB INHALATION SCH (07:23)
[2018-12-11] MEDS: CITALOPRAM HYDROBROMIDE 20 MG TAB PO SCH (07:28)
[2018-12-11] MEDS: HEPARIN SODIUM,PORCINE 5,000 UNIT/ML 1 ML VIAL SQ SCH (07:28)
[2018-12-11] MEDS: FAMOTIDINE 20 MG TAB PO SCH (07:28)
[2018-12-11] MEDS: METOPROLOL TARTRATE 25 MG TAB PO SCH (07:28)
[2018-12-11] MEDS: GABAPENTIN 100 MG CAP PO SCH (07:28)
[2018-12-11] MEDS: ASCORBIC ACID 500 MG TAB PO SCH (07:28)
[2018-12-11] MEDS: CHOLECALCIFEROL 1,000 UNIT TAB PO SCH (07:28)
[2018-12-11] MEDS: MULTIVITAMINS, THERA 1 EACH TAB PO SCH (07:28)
[2018-12-11] MEDS: clonazePAM 0.5 MG TAB PO SCH (07:28)
[2018-12-11] MEDS: cycloSPORINE 0.05% OPHTH 0.4 ML DROPERETTE BOTH EYES SCH (07:29)
[2018-12-11] MEDS: VIT A,C & E-LUTEIN-MINERALS 1 EACH TAB PO SCH (07:29)
[2018-12-11] MEDS: PIPERACILLIN-TAZOBACTAM 3.375 GM in SODIUM CHLORIDE 0.9% 100 ML IVPB SCH (07:29)
[2018-12-11 07:50] VITALS: BP 107/68; PULSE 86; RESP 15; TEMP 98.6
--- NOTE | 2018-12-14 08:19 | P.PN ---
Subjective Progress Note Date: 12/10/18 This is an 78-year-old female with a previous medical history significant for hypothyroidism, dry eyes, osteoarthritis, I suppose, chronic tobacco use and dependence with possible COPD, patient was in her usual state of health about the day before yesterday when she was in the bathroom she fell family ended up calling EMS for her to sit her up and the patient was able to ambulate fine without any issues, yesterday when she was trying to use her walker and trying to ambulating herself she could not even sit herself up but she could not even template using a walker with 2 people in front and back of her, patient was using the walker and suddenly she felt extremely weak in both lower extremity she was complaining of increased dysuria and she was somewhat short of breath with ambulation, family called EMS the patient was brought into the ER for evaluation, patient was found to have an elevated troponin and elevated white count and very bad urinary tract infection chest x-ray showed no cardio regularly and no infiltrate, lumbar x-ray did not show any evidence of acute fracture however it did show significant spondylosis of the lumbar spine, patient was started on IV antibiotic in the form of Levaquin and she was admitted to the hospital for evaluation urine cultures and blood cultures were obtained, patient blood culture today showed 2 g negative rods she was taken off her Levaquin and she was started on Zosyn 3.375 g IV piggyback every 8 hours since her blood cultures were negative she continues to have a temperature max at 103, she will be seen in consultation by infectious disease, she will be seen in consultation by cardiology as well, we have obtain a stat 12-lead EKG since I could not find her EKG from yesterday, echocardiogram will be obtained as well ultrasound of the abdomen would be obtained due to her elevated liver function test as well. This is could be all related to the sepsis picture at this time we will continue to monitor the patient very closely. 12/09: Patient is doing much better today did have another temperature max in the morning at 101.5 she was kept on Zosyn added vancomycin for broader spectrum antibiotic and repeated blood cultures 2, she is pain a lot better today she denies any chest pain or shortness breath she has no abdominal pain, nausea vomiting or diarrhea she seems to be turning around at this point in time awaiting the echocardiogram as well as ultrasound of the abdomen. 12/10: Patient denies having any fever or chills. Urinary frequency is improved. 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 Patient does state that she gets upset stomach when she eats fried food. Cardiology is planning for outpatient stress testing at a later time. Echocardiogram reveals EF 55-60%, mild mitral regurgitation, severe tricuspid regurgitation, moderate pulmonary hypertension, RVSP is 53.04 mmHg. Patient is undecided whether she will go home or to subacute rehab. We'll plan to monitor patient overnight plan for discharge tomorrow. Dr. Jane has recommended Levaquin for 14 day course. Repeat blood culture has been ordered. Review of Systems Constitutional: Reports fatigue, Reports malaise, Reports poor appetite, Reports weakness Eyes: bilateral dry eye, denies blurred vision, denies bulging eye, denies decreased vision Ears: deny: decreased hearing Ears, nose, mouth and throat: Denies dysphagia, Denies swelling in throat, Denies sore throat Cardiovascular: Reports decreased exercise tolerance, Reports dyspnea on exertion, Reports shortness of breath, Denies chest pain, Denies lightheadedness, Denies rapid heart beat, Denies syncope Respiratory: Denies congestion, Denies cough, Denies cough with sputum, Denies hemoptysis, Denies home oxygen, Denies sleep apnea, Denies snoring, Denies wheezing Gastrointestinal: Reports loss of appetite, Denies abdominal pain, Denies bloating, Denies BRBPR, Denies heartburn, Denies melena, Denies nausea, Denies vomiting Genitourinary: Reports dysuria-improved, Reports nocturia, Reports urgency, Reports urinary frequency Menstruation: Reports post hysterectomy Musculoskeletal: Reports frequent falls, Reports gait dysfunction, Reports low back pain, Denies myalgias Musculoskeletal: absent: ankle pain, ankle stiffness, ankle swelling, elbow pain, elbow stiffness, elbow swelling, foot pain, foot stiffness, foot swelling, hand pain, hand stiffness, hand swelling, hip pain, hip stiffness, hip swelling, knee pain, knee stiffness, knee swelling, shoulder pain, shoulder stiffness, shoulder swelling, wrist pain, wrist stiffness, wrist swelling Integumentary: Denies pruritus, Denies rash Neurological: Denies numbness, Denies weakness Psychiatric: Reports anxiety, Reports depression Endocrine: Denies fatigue, Denies weight change Objective - Vital Signs Vital signs: Vital Signs Temp 99.3 F 10/21/19 07:00 Pulse 92 12/10/18 11:43 Resp 16 12/10/18 08:00 BP 109/70 12/10/18 07:00 Pulse Ox 96 12/10/18 07:00 Intake & Output 12/09/18 12/10/18 12/10/18 18:59 06:59 18:59 Intake Total 940 750 180 Balance 940 750 180 Intake: Intake, IV Titration 940 750 Amount Piperacillin-Tazobactam 3 100 .375 gm In Sodium Chloride 0.9% 100 ml @ 25 mls/hr IVPB Q8HR [facility] Rx# :[id number] Sodium Chloride 0.9% 1, 600 750 000 ml @ 75 mls/hr IV . [id number] [facility] Rx#:[id number] Vancomycin 1,000 mg In 240 Sodium Chloride 0.9% 250 ml @ 125 mls/hr IVPB ONCE ONE Rx#:[id number] Oral 180 Other: Voiding Method Toilet Toilet Diaper Diaper # Voids 2 1 # Bowel Movements 1 - Exam - Constitutional General appearance: average body habitus, mild distress - EENT Eyes: anicteric sclerae, EOMI, PERRLA, no ptosis, no scleral icterus, normal appearance ENT: hearing grossly normal, NA/AT, normal oropharynx, no thrush Ears: bilateral: normal - Neck Carotids: bilateral: upstroke normal Thyroid: bilateral: normal size - Respiratory Respiratory: bilateral: diminished, negative: dullness, rales, rhonchi, wheezing, prolonged expiration - Cardiovascular Rhythm: regular Heart sounds: normal: S1, S2 Abnormal Heart Sounds: systolic murmur, no S3 Gallop, no S4 Gallop - Gastrointestinal General gastrointestinal: normal bowel sounds, soft, no splenomegaly, no te nderness, no umbilical hernia, no ventral hernia - Integumentary Integumentary: normal, normal turgor - Neurologic Neurologic: CNII-XII intact - Musculoskeletal Musculoskeletal: generalized weakness, strength equal bilaterally - Psychiatric Psychiatric: A&O x's 3, appropriate affect, intact judgment & insight - Labs CBC & Chem 7: 12/09/18 06:34 12/09/18 06:34 Labs: Microbiology - Last 24 Hours (Table) 12/07/18 22:41 Blood Culture Gram Stain - Final Blood Blood Culture - Final Escherichia coli 12/07/18 21:00 Urine Culture - Final Urine,Voided Escherichia coli
--- NOTE | 2018-12-14 08:32 | P.DS ---
Providers Date of admission: 12/09/18 12:10 Expected date of discharge: 12/11/18 Attending physician: Ivan Shea Consults: 12/08/18 14:55 Consult Physician Routine Consulting Provider: Brayden Ledezma Consult Reason/Comments: Elevated troponin Do you want consulting provider notified?: Yes 12/08/18 15:03 Consult Physician Routine Consulting Provider: Tico Jane Consult Reason/Comments: bacteremia/sepsis Do you want consulting provider notified?: Yes Primary care physician: Stated None Hospital Course: This is an 78-year-old female with a previous medical history significant for hypothyroidism, dry eyes, osteoarthritis, I suppose, chronic tobacco use and dependence with possible COPD, patient was in her usual state of health about the day before yesterday when she was in the bathroom she fell family ended up calling EMS for her to sit her up and the patient was able to ambulate fine without any issues, yesterday when she was trying to use her walker and trying to ambulating herself she could not even sit herself up but she could not even template using a walker with 2 people in front and back of her, patient was using the walker and suddenly she felt extremely weak in both lower extremity she was complaining of increased dysuria and she was somewhat short of breath with ambulation, family called EMS the patient was brought into the ER for evaluation, patient was found to have an elevated troponin and elevated white count and very bad urinary tract infection chest x-ray showed no cardio regularly and no infiltrate, lumbar x-ray did not show any evidence of acute fracture however it did show significant spondylosis of the lumbar spine, patient was started on IV antibiotic in the form of Levaquin and she was admitted to the hospital for evaluation urine cultures and blood cultures were obtained, patient blood culture today showed 2 g negative rods she was taken off her Levaquin and she was started on Zosyn 3.375 g IV piggyback every 8 hours since her blood cultures were negative she continues to have a temperature max at 103, she will be seen in consultation by infectious disease, she will be seen in consultation by cardiology as well, we have obtain a stat 12-lead EKG since I could not find her EKG from yesterday, echocardiogram will be obtained as well ultrasound of the abdomen would be obtained due to her elevated liver function test as well. This is could be all related to the sepsis picture at this time we will continue to monitor the patient very closely. 12/09: Patient is doing much better today did have another temperature max in the morning at 101.5 she was kept on Zosyn added vancomycin for broader spectrum antibiotic and repeated blood cultures 2, she is pain a lot better today she denies any chest pain or shortness breath she has no abdominal pain, nausea vomiting or diarrhea she seems to be turning around at this point in time awaiting the echocardiogram as well as ultrasound of the abdomen. 12/10: Patient denies having any fever or chills. Urinary frequency is improved. 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 Patient does state that she gets upset stomach when she eats fried food. Cardiology is planning for outpatient stress testing at a later time. Echocardiogram reveals EF 55-60%, mild mitral regurgitation, severe tricuspid regurgitation, moderate pulmonary hypertension, RVSP is 53.04 mmHg. Patient is undecided whether she will go home or to subacute rehab. We'll plan to monitor patient overnight plan for discharge tomorrow. Dr. Jane has recommended [facility] min[facility] for 14 day course. Repeat blood culture has been ordered. 12/11: Initial urine and blood culture positive for E. coli pansensitive. Repeat blood culture no growth at 72 hours. PT and OT have evaluated and recommended home care. Patient has been set up with [facility]. No issues overnight. Patient has been afebrile. Patient will be discharged home today in stable condition. Discharge diagnoses: 1. E. coli Urinary tract infection with sepsis and gram-negative bacteremia. 2. Mild dyspnea with elevated troponin without evidence of acute coronary syndrome. Cardiology consult appreciated. Plan for outpatient stress test at a later time. 3. Acute kidney injury due to acute tubular necrosis. 4. Elevated liver function tests of unclear etiology most likely due to acalculous cholecystitis. 5. Hypothyroidism. 6. Chronic tobacco use and dependence. Smoking cessation 7. Generalized anxiety disorder and recurrent depression. 8. Bilateral lower extremity neuropathy. 9. Generalized weakness and inability to ambulate with gait dysfunction. 10. Vitamin D deficiency. 11. Dry eyes. 12. Adult onset macular degeneration. 13. Spondylosis of the lumbar spine. 14. Thoracic Aortic Aneurysm about 4.1 cm . Discharge plan: Home with [facility] Impression and plan of care have been directed as dictated by the signing physician. Concha Carbajal nurse practitioner acting as scribe for signing physician. Patient Condition at Discharge: Good Plan - Discharge Summary New Discharge Prescriptions: New Levofloxacin [Levaquin] 500 mg PO DAILY #14 tab Metoprolol Tartrate [Lopressor] 25 mg PO BID #60 tab Continue clonazePAM 0.5 mg PO BID Acetaminophen [Tylenol Extra Strength] 1,000 mg PO DAILY Multivitamins, Thera [Multivitamin (formulary)] 1 tab PO DAILY Gabapentin [Neurontin] 200 mg PO BID Cholecalciferol [Vitamin D3 (25 Mcg = 1000 Iu)] 2,000 unit PO DAILY Ascorbic Acid [Vitamin C] 500 mg PO DAILY cycloSPORINE [Restasis] 1 applicator BOTH EYES BID Vit A/Vit C/Vit E/Zinc/Copper [ICAPS SOFTGEL] 1 cap PO DAILY Levothyroxine Sodium [Synthroid] 75 mcg PO DAILY Citalopram Hydrobromide [CeleXA] 20 mg PO DAILY Discharge Medication List Acetaminophen [Tylenol Extra Strength] 1,000 mg PO DAILY 12/07/18 [History] Ascorbic Acid [Vitamin C] 500 mg PO DAILY 12/07/18 [History] Cholecalciferol [Vitamin D3 (25 Mcg = 1000 Iu)] 2,000 unit PO DAILY 12/07/18 [History] Citalopram Hydrobromide [CeleXA] 20 mg PO DAILY 12/07/18 [History] Gabapentin [Neurontin] 200 mg PO BID 12/07/18 [History] Levothyroxine Sodium [Synthroid] 75 mcg PO DAILY 12/07/18 [History] Multivitamins, Thera [Multivitamin (formulary)] 1 tab PO DAILY 12/07/18 [History] Vit A/Vit C/Vit E/Zinc/Copper [ICAPS SOFTGEL] 1 cap PO DAILY 12/07/18 [History] clonazePAM 0.5 mg PO BID 12/07/18 [History] cycloSPORINE [Restasis] 1 applicator BOTH EYES BID 12/07/18 [History] Levofloxacin [Levaquin] 500 mg PO DAILY #14 tab 12/11/18 [Rx] Metoprolol Tartrate [Lopressor] 25 mg PO BID #60 tab 12/11/18 [Rx] Follow up Appointment(s)/Referral(s): Brayden Ledezma MD [STAFF PHYSICIAN] - 12/26/18 10:45 am (With Jaquline ) Tico Jane MD [STAFF PHYSICIAN] - As Needed Tico Plasencia MD [Medical Doctor] - 12/18/18 1:30 pm (with [facility]) [facility] Visiting Nurse, [NON-STAFF] - As Needed Ambulatory/Diagnostic Orders: Complete Blood Count w/diff [LAB.AMB] Location: None Selected Comprehensive Metabolic Panel [LAB.AMB] Location: None Selected Patient Instructions/Handouts: Urinary Tract Infection in Women (DC), Fall Prevention for Older Adults (DC) Activity/Diet/Wound Care/Special Instructions: Please contact [facility] [place] [facility] [place] on Aging for chore services and Meals on Wheels: #[phone] Discharge Disposition: HOME WITH HOME HEALTH SERVICES
== END 2018-12-11 10:28 | disposition home health service (06) | DRG 871 ==
LOC: EC 19:19 → 4SSUR 23:19 → OBSVTOIN 12-09 12:10
PROVIDERS: ADMIT Internal Medicine; ATTEND Internal Medicine
DX: A41.51 Sepsis due to Escherichia coli [E. coli] (principal); N17.0 Acute kidney failure with tubular necrosis; F33.9 Major depressive disorder, recurrent, unspecified; J98.11 Atelectasis; N39.0 Urinary tract infection, site not specified; D69.6 Thrombocytopenia, unspecified; E55.9 Vitamin D deficiency, unspecified; E89.0 Postprocedural hypothyroidism; F41.1 Generalized anxiety disorder; H35.30 Unspecified macular degeneration; I27.20 Pulmonary hypertension, unspecified; I71.2 Thoracic aortic aneurysm, without rupture; K81.1 Chronic cholecystitis; M47.816 Spondylosis without myelopathy or radiculopathy, lumbar region; M81.0 Age-related osteoporosis without current pathological fracture; R29.6 Repeated falls; W18.11XA Fall from or off toilet without subsequent striking against object, initial encounter; Y92.009 Unspecified place in unspecified non-institutional (private) residence as the place of occurrence of the external cause; Z79.82 Long term (current) use of aspirin; Z79.890 Hormone replacement therapy; Z79.899 Other long term (current) drug therapy; Z80.0 Family history of malignant neoplasm of digestive organs; Z80.7 Family history of other malignant neoplasms of lymphoid, hematopoietic and related tissues; Z87.440 Personal history of urinary (tract) infections; Z90.710 Acquired absence of both cervix and uterus; Z91.040 Latex allergy status; Z98.49 Cataract extraction status, unspecified eye; M19.90 Unspecified osteoarthritis, unspecified site; J44.9 Chronic obstructive pulmonary disease, unspecified; F17.210 Nicotine dependence, cigarettes, uncomplicated; R79.89 Other specified abnormal findings of blood chemistry; R79.1 Abnormal coagulation profile; R26.9 Unspecified abnormalities of gait and mobility; G62.9 Polyneuropathy, unspecified; Z96.653 Presence of artificial knee joint, bilateral; N18.3 Chronic kidney disease, stage 3 (moderate)
CPT/HCPCS: 36415; 71046; 71275; 72110; 76700; 80053; 81001; 82553; 83605; 84484; 85025; 85379; 85610; 85730; 87040; 87077; 87086; 87186; 87502; 93005; 93306; 94640; 94760; 96361; 96365; 96375; 99285

== ENCOUNTER 2019-08-07 22:00 | Emergency (ER) | payer MEDICARE ==
[2019-08-07 22:11] VITALS: TEMP 99
--- NOTE | 2019-08-07 22:33 | ED ---
SOB HPI - General Source: patient, EMS, RN notes reviewed Mode of arrival: EMS - History of Present Illness MD Complaint: shortness of breath <Anival Ibarra - Last Filed: 08/07/19 22:57> <Jatin Car - Last Filed: 08/13/19 23:26> - General Chief Complaint: Shortness of Breath Stated Complaint: JIM Time Seen by Provider: 08/07/19 22:00 - History of Present Illness Initial Comments: This 79-year-old female with a long history of smoking who quit May for she states who suddenly became short of breath around 7 PM tonight when she was sitting with [place]. Is very short of breath she went home and did not get any better and the EMS was called. She was found have a 85% sat on room air. She was given solu- Medrol as well as a DuoNeb area patient states she feels much improved and asked he feels like to go home now. She has no history of being diagnosed with COPD or asthma or emphysema. She's had no fevers chills cough phlegm production. Note other modifying factors chest pain reported at this time (Anival Ibarra) - Related Data Home Medications Medication Instructions Recorded Confirmed Acetaminophen [Tylenol Extra 1,000 mg PO DAILY 12/07/18 12/07/18 Strength] Ascorbic Acid [Vitamin C] 500 mg PO DAILY 12/07/18 12/07/18 Cholecalciferol [Vitamin D3 (25 2,000 unit PO DAILY 12/07/18 12/07/18 Mcg = 1000 Iu)] Citalopram Hydrobromide [CeleXA] 20 mg PO DAILY 12/07/18 12/07/18 Gabapentin [Neurontin] 200 mg PO BID 12/07/18 12/07/18 Levothyroxine Sodium [Synthroid] 75 mcg PO DAILY 12/07/18 12/07/18 Multivitamins, Thera [Multivitamin 1 tab PO DAILY 12/07/18 12/07/18 (formulary)] Vit A/Vit C/Vit E/Zinc/Copper 1 cap PO DAILY 12/07/18 12/07/18 [ICAPS SOFTGEL] clonazePAM 0.5 mg PO BID 12/07/18 12/07/18 cycloSPORINE [Restasis] 1 applicator BOTH EYES BID 12/07/18 12/07/18 Previous Rx's Medication Instructions Recorded Levofloxacin [Levaquin] 500 mg PO DAILY #14 tab 12/11/18 Metoprolol Tartrate [Lopressor] 25 mg PO BID #60 tab 12/11/18 Albuterol Sulfate [Proair Hfa] 1 - 2 puff INHALATION Q4H PRN #1 08/08/19 inhaler Allergies Allergy/AdvReac Type Severity Reaction Status Date / Time Latex, Natural Rubber Allergy Rash/Hives Verified 08/07/19 22:11 Review of Systems ROS Other: All systems not noted in ROS Statement are negative. <Anival Ibarra - Last Filed: 08/07/19 22:57> ROS Other: All systems not noted in ROS Statement are negative. <Jatin Car - Last Filed: 08/13/19 23:26> ROS Statement: Those systems with pertinent positive or pertinent negative responses have been documented in the HPI. Past Medical History Past Medical History: Eye Disorder, Osteoarthritis (OA), Thyroid Disorder Additional Past Medical History / Comment(s): Osteoporosis History of Any Multi-Drug Resistant Organisms: None Reported Past Surgical History: Breast Surgery, Hysterectomy, Orthopedic Surgery Additional Past Surgical History / Comment(s): Cataract surgery, patial thyroidectomy, bilateral total knees, reconstruction on both feet, vein taken out of R. leg from groin to ankle, lumpectomy on left breast, biopsy of 2x lumps on right breast Past Anesthesia/Blood Transfusion Reactions: No Reported Reaction Past Psychological History: No Psychological Hx Reported, Anxiety Smoking Status: Former smoker Past Alcohol Use History: Rare Past Drug Use History: None Reported - Past Family History Mother Family Medical History: Cancer (Mother at age of 68 from pancreatic cancer.) Additional Family Medical History / Comment(s): pancreatic cancer Father Family Medical History: Cancer (Father at age of 62 from non-Hodgkin lymphoma.) Additional Family Medical History / Comment(s): lymphoma Brother(s) Family Medical History: No Reported History (Patient has one brother no major medical problems.) Sister(s) Family Medical History: No Reported History (Patient has 3 sisters no major medical problems.) Daughter(s) Family Medical History: No Reported History (Patient has one daughter no major medical problem.) Son(s) Family Medical History: No Reported History (Patient has 3 sons no major medical problems.) <Anival Ibarra - Last Filed: 08/07/19 22:57> General Exam General appearance: alert, in no apparent distress Head exam: Present: atraumatic, normocephalic, normal inspection Eye exam: Present: normal appearance, PERRL, EOMI. Absent: scleral icterus, conjunctival injection, periorbital swelling ENT exam: Present: normal exam, mucous membranes moist Neck exam: Present: normal inspection. Absent: tenderness, meningismus, lymphadenopathy Respiratory exam: Present: normal lung sounds bilaterally. Absent: respiratory distress, wheezes, rales, rhonchi, stridor Cardiovascular Exam: Present: normal rhythm, tachycardia, normal heart sounds. Absent: systolic murmur, diastolic murmur, rubs, gallop, clicks GI/Abdominal exam: Present: soft, normal bowel sounds. Absent: distended, tenderness, guarding, rebound, rigid Extremities exam: Present: normal inspection, full ROM, normal capillary refill. Absent: tenderness, pedal edema, joint swelling, calf tenderness Back exam: Present: normal inspection Neurological exam: Present: alert, oriented X3, CN II-XII intact Psychiatric exam: Present: normal affect, normal mood Skin exam: Present: warm, dry, intact, normal color. Absent: rash <Anival Ibarra - Last Filed: 08/07/19 22:57> General appearance: alert, in no apparent distress Head exam: Present: atraumatic, normocephalic, normal inspection Eye exam: Present: normal appearance, PERRL, EOMI. Absent: scleral icterus, conjunctival injection, periorbital swelling ENT exam: Present: normal exam, mucous membranes moist Neck exam: Present: normal inspection. Absent: tenderness, meningismus, lymphadenopathy Respiratory exam: Present: normal lung sounds bilaterally. Absent: respiratory distress, wheezes, rales, rhonchi, stridor Cardiovascular Exam: Present: normal rhythm, tachycardia, normal heart sounds. Absent: systolic murmur, diastolic murmur, rubs, gallop, clicks GI/Abdominal exam: Present: soft, normal bowel sounds. Absent: distended, tenderness, guarding, rebound, rigid Extremities exam: Present: normal inspection, full ROM, normal capillary refill. Absent: tenderness, pedal edema, joint swelling, calf tenderness Back exam: Present: normal inspection Neurological exam: Present: alert, oriented X3, CN II-XII intact Psychiatric exam: Present: normal affect, normal mood Skin exam: Present: warm, dry, intact, normal color. Absent: rash <Jatin Car - Last Filed: 08/13/19 23:26> - General Exam Comments Initial Comments: This is a well-developed well-nourished awake alert oriented 1 female (FredAnival) Course <Anival Ibarra - Last Filed: 08/07/19 22:57> Vital Signs 08/07/19 08/07/19 08/07/19 22:03 22:52 23:46 Temperature 99 F Pulse Rate 124 H 123 H 120 H Respiratory 17 19 Rate Blood Pressure 141/81 130/72 O2 Sat by Pulse 100 96 Oximetry 08/07/19 08/07/19 08/08/19 23:55 23:56 00:06 Temperature Pulse Rate 120 H 120 H 114 H Respiratory Rate Blood Pressure O2 Sat by Pulse Oximetry 08/08/19 02:00 Temperature Pulse Rate 107 H Respiratory 20 Rate Blood Pressure 114/75 O2 Sat by Pulse 95 Oximetry - Reevaluation(s) Reevaluation #1: 08/07/19 22:58 The patient's care will be endorsed to Dr. Car at our shift change (Anival Ibarra) Medical Decision Making - EKG Data -: EKG Interpreted by Pa EKG shows normal: sinus rhythm (Sinus tachycardia 123 MT interval 134) <Anival Iabrra - Last Filed: 08/07/19 22:57> - Lab Data Result diagrams: 08/07/19 22:46 08/07/19 22:46 - Radiology Data Radiology results: report reviewed (CT chest is negative for acute disease), image reviewed <Jatin Car - Last Filed: 08/13/19 23:26> - Medical Decision Making 79 female to show consistent cough or congestion no significant shortness of breath. Mild bronchitis history of same. No significant findings here in the ER patient feels well like to be discharged home (Jatin Car) - Lab Data Lab Results 08/07/19 08/07/19 08/07/19 Range/Units 22:46 22:46 22:46 WBC 14.8 H (3.8-10.6) k/uL RBC 4.48 (3.80-5.40) m/uL Hgb 13.2 (11.4-16.0) gm/dL Hct 42.2 (34.0-46.0) % MCV 94.1 (80.0-100.0) fL MCH 29.4 (25.0-35.0) pg MCHC 31.3 (31.0-37.0) g/dL RDW 14.2 (11.5-15.5) % Plt Count 228 (150-450) k/uL Neutrophils % 90 % Lymphocytes % 5 % Monocytes % 2 % Eosinophils % 2 % Basophils % 0 % Neutrophils # 13.3 H (1.3-7.7) k/uL Lymphocytes # 0.7 L (1.0-4.8) k/uL Monocytes # 0.3 (0-1.0) k/uL Eosinophils # 0.3 (0-0.7) k/uL Basophils # 0.0 (0-0.2) k/uL PT (9.0-12.0) sec INR (<1.2) APTT (22.0-30.0) sec D-Dimer (<0.60) mg/L FEU Sodium 140 (137-145) mmol/L Potassium 4.4 (3.5-5.1) mmol/L Chloride 102 (98-107) mmol/L Carbon Dioxide 26 (22-30) mmol/L Anion Gap 12 mmol/L BUN 27 H (7-17) mg/dL Creatinine 1.06 H (0.52-1.04) mg/dL Est GFR (CKD-EPI)AfAm 57 (>60 ml/min/1.73 sqM) Est GFR (CKD-EPI)NonAf 50 (>60 ml/min/1.73 sqM) Glucose 137 H (74-99) mg/dL Plasma Lactic Acid Trip (0.7-2.0) mmol/L Calcium 9.0 (8.4-10.2) mg/dL Magnesium 1.7 (1.6-2.3) mg/dL Total Bilirubin 0.3 (0.2-1.3) mg/dL AST 28 (14-36) U/L ALT 18 (4-34) U/L Alkaline Phosphatase 146 H (38-126) U/L Creatine Kinase 33 (30-135) U/L Troponin I (0.000-0.034) ng/mL NT-Pro-B Natriuret Pep 182 pg/mL Total Protein 7.3 (6.3-8.2) g/dL Albumin 4.0 (3.5-5.0) g/dL 08/07/19 08/07/19 08/07/19 Range/Units 22:46 22:46 22:46 WBC (3.8-10.6) k/uL RBC (3.80-5.40) m/uL Hgb (11.4-16.0) gm/dL Hct (34.0-46.0) % MCV (80.0-100.0) fL MCH (25.0-35.0) pg MCHC (31.0-37.0) g/dL RDW (11.5-15.5) % Plt Count (150-450) k/uL Neutrophils % % Lymphocytes % % Monocytes % % Eosinophils % % Basophils % % Neutrophils # (1.3-7.7) k/uL Lymphocytes # (1.0-4.8) k/uL Monocytes # (0-1.0) k/uL Eosinophils # (0-0.7) k/uL Basophils # (0-0.2) k/uL PT 9.7 (9.0-12.0) sec INR 0.9 (<1.2) APTT 21.9 L (22.0-30.0) sec D-Dimer 1.84 H (<0.60) mg/L FEU Sodium (137-145) mmol/L Potassium (3.5-5.1) mmol/L Chloride (98-107) mmol/L Carbon Dioxide (22-30) mmol/L Anion Gap mmol/L BUN (7-17) mg/dL Creatinine (0.52-1.04) mg/dL Est GFR (CKD-EPI)AfAm (>60 ml/min/1.73 sqM) Est GFR (CKD-EPI)NonAf (>60 ml/min/1.73 sqM) Glucose (74-99) mg/dL Plasma Lactic Acid Trip 1.7 (0.7-2.0) mmol/L Calcium (8.4-10.2) mg/dL Magnesium (1.6-2.3) mg/dL Total Bilirubin (0.2-1.3) mg/dL AST (14-36) U/L ALT (4-34) U/L Alkaline Phosphatase (38-126) U/L Creatine Kinase (30-135) U/L Troponin I <0.012 (0.000-0.034) ng/mL NT-Pro-B Natriuret Pep pg/mL Total Protein (6.3-8.2) g/dL Albumin (3.5-5.0) g/dL - EKG Data EKG Comments: QRS 82 QT since QTC 312/446 rightward axis (Anival Ibarra) Disposition <Anival Ibarra - Last Filed: 08/07/19 22:57> Is patient prescribed a controlled substance at d/c from ED?: No <Jatin Car - Last Filed: 08/13/19 23:26> Clinical Impression: Acute bronchitis Disposition: HOME SELF-CARE Condition: Good Instructions (If sedation given, give patient instructions): Acute Bronchitis (ED) Prescriptions: Albuterol Sulfate [Proair Hfa] 1 - 2 puff INHALATION Q4H PRN #1 inhaler PRN Reason: Shortness Of Breath Referrals: Tico Plasencia MD [Primary Care Provider] - 1-2 days
[2019-08-07 23:05] LABS: Basophils % (A) 0 %; Eosinophils # (A) 0.3 k/uL (0-0.7); Eosinophils % (A) 2 %; HCT 42.2 % (34.0-46.0); HGB 13.2 gm/dL (11.4-16.0); Lymphocytes # (A) 0.7 k/uL (1.0-4.8); Lymphocytes % (A) 5 %; MCH 29.4 pg (25.0-35.0); MCHC 31.3 g/dL (31.0-37.0); MCV 94.1 fL (80.0-100.0); Mean Platelet Volume 7.9; Monocytes # (A) 0.3 k/uL (0-1.0); Monocytes % (A) 2 %; Neutrophils # (A) 13.3 k/uL (1.3-7.7); Neutrophils % (A) 90 %; Platelet Count 228 k/uL (150-450); RBC 4.48 m/uL (3.80-5.40); RDW 14.2 % (11.5-15.5); WBC 14.8 k/uL (3.8-10.6)
[2019-08-07 23:14] LABS: Magnesium 1.7 mg/dL (1.6-2.3); Potassium 4.4 mmol/L (3.5-5.1); Total Bilirubin 0.3 mg/dL (0.2-1.3); Total Protein 7.3 g/dL (6.3-8.2)
--- NOTE | 2019-08-07 23:19 | XR ---
EXAMINATION TYPE: XR chest 2V DATE OF EXAM: 08/07/2019 COMPARISON: 12/07/2018 HISTORY: Difficulty breathing TECHNIQUE: 2 views FINDINGS: Heart and mediastinum are normal. Lungs are clear of infiltrate. There are chest leads. Cos tophrenic angles are clear. There are no hilar masses. Thoracic aorta is atheromatous. Bony thorax is intact. IMPRESSION: No active cardiopulmonary disease. No change.
[2019-08-07] MEDS ORDERED: IPRATROPIUM-ALBUTEROL 3 ML NEB INHALATION STA (23:21)
[2019-08-07 23:39] LABS: INR 0.9 (<1.2); Prothrombin Time 9.7 sec (9.0-12.0)
[2019-08-07 23:43] LABS: D-Dimer 1.84 mg/L FEU (<0.60)
[2019-08-07] MEDS ORDERED: SODIUM CHLORIDE 0.9% 1,000 ML IV ONE (23:43)
[2019-08-07 23:44] LABS: Partial Thromboplastin Time 21.9 sec (22.0-30.0)
--- NOTE | 2019-08-08 00:35 | CT ---
EXAMINATION TYPE: CT angio chest DATE OF EXAM: 08/07/2019 COMPARISON: 12/08/2018 HISTORY: SOB CT DLP: 475.2 mGycm Automated exposure control for dose reduction was used. CONTRAST: Performed with IV Contrast, patient injected with 80 mL of Isovue 370. There is some mild atelectasis at the lung bases. There is no pleural effusion. There is no pericardi al effusion. Heart size is normal. There are no hilar masses. There is no mediastinal adenopathy. Tho racic aorta shows no aneurysm or dissection. The ascending aorta measures 3.9 cm. The bony thorax is intact. There is normal contrast opacification of the pulmonary arteries. There are no filling defects. Upper abdominal soft tissues are intact. There is 4 cm cyst on the lateral left kidney. IMPRESSION: There is some atelectasis at the posterior lung bases not significantly different than old exam. No e vidence of pulmonary embolism. There is borderline aneurysm of the ascending aorta. No adverse change compared to old exam.
[2019-08-08] MEDS ORDERED: DEXAMETHASONE SOD PHOSPHATE 10 MG/ML 1 ML VIAL IV STA (01:36)
[2019-08-08 02:09] VITALS: BP 114/75; PULSE 107; RESP 20
== END 2019-08-08 02:02 | disposition home or self-care (01) ==
LOC: EC 22:00
DX: J20.9 Acute bronchitis, unspecified (principal); E07.9 Disorder of thyroid, unspecified; F41.9 Anxiety disorder, unspecified; Z79.899 Other long term (current) drug therapy; Z79.890 Hormone replacement therapy; Z91.048 Other nonmedicinal substance allergy status; Z91.040 Latex allergy status; Z87.891 Personal history of nicotine dependence
CPT/HCPCS: 36415; 94640 ×2; 93005; 85379; 83880; 80053; 82550; 83605; 83735; 84484; 85025; 85610; 85730; 71046; 71275; 99285; 96374; 96361; J1100; Q9967

== ENCOUNTER → 2019-11-06 | Outpatient (CLI) | payer MEDICARE ==
--- NOTE | 2019-11-08 09:18 | MM ---
Reason for exam: screening (asymptomatic). Last mammogram was performed 1 year and 3 months ago. History: Patient is postmenopausal. Benign excisional biopsy of the left breast, 1986. Benign excisional biopsy of the right breast, 1984. Benign excisional biopsy of the left breast. Took hormonal contraceptives for 3 years beginning at age 18. Took estrogen for 2 years beginning at age 47. Taking other hormone for 39 years beginning at age 28. Physical Findings: A clinical breast exam by your physician is recommended on an annual basis and results should be correlated with mammographic findings. MG 3D Screening Mammo W/Cad Bilateral CC and MLO view(s) were taken. Prior study comparison: August 13, 2018, bilateral MG 3d screening mammo w/cad. July 20, 2017, bilateral MG 3d screening mammo w/cad. The breast tissue is heterogeneously dense. This may lower the sensitivity of mammography. Increasing nodular deneity upper outer left breast. ASSESSMENT: Incomplete: need additional imaging evaluation, BI-RAD 0 RECOMMENDATION: Special view mammogram and ultrasound of the left breast. [facility] will attempt to contact patient to return for supplemental views and ultrasound.
== END | disposition home or self-care (01) ==
LOC: RADMAMWWP 13:04
PROVIDERS: ATTEND Internal Medicine Geriatric Medicine
DX: Z12.31 Encounter for screening mammogram for malignant neoplasm of breast (principal)
CPT/HCPCS: 77063; 77067

== ENCOUNTER → 2020-11-27 | Outpatient (CLI) | payer MEDICARE ==
--- NOTE | 2020-12-01 10:15 | MM ---
Reason for exam: screening (asymptomatic). Last mammogram was performed 1 year ago. History: Patient is postmenopausal. Benign excisional biopsy of the left breast, 1986. Benign excisional biopsy of the right breast, 1984. Benign excisional biopsy of the left breast. Took hormonal contraceptives for 3 years beginning at age 18. Took estrogen for 2 years beginning at age 47. Taking other hormone for 39 years beginning at age 28. Physical Findings: A clinical breast exam by your physician is recommended on an annual basis and results should be correlated with mammographic findings. MG 3D Screening Mammo W/Cad Bilateral CC, MLO, and XCCL view(s) were taken. Prior study comparison: November 06, 2019, bilateral MG 3d screening mammo w/cad. August 13, 2018, bilateral MG 3d screening mammo w/cad. July 20, 2017, bilateral MG 3d screening mammo w/cad. There are scattered fibroglandular densities. No significant changes when compared with prior studies. ASSESSMENT: Benign, BI-RAD 2 RECOMMENDATION: Routine screening mammogram of both breasts in 1 year.
== END | disposition home or self-care (01) ==
LOC: RADMAMWWP 13:02
PROVIDERS: ATTEND Internal Medicine Geriatric Medicine
DX: Z12.31 Encounter for screening mammogram for malignant neoplasm of breast (principal); Z78.0 Asymptomatic menopausal state
CPT/HCPCS: 77063; 77067

== ENCOUNTER → 2022-01-05 | Outpatient (CLI) | payer MEDICARE ==
--- NOTE | 2022-01-05 14:25 | BD ---
EXAMINATION TYPE: Axial Bone Density DATE OF EXAM: 01/05/2022 COMPARISON: BASELINE CLINICAL HISTORY: 81 years old Female. ICD-10 CODE: M81.0 AGE-RELATED OSTEOPOROSIS W Height: 63 Weight: 180 FRAX RISK QUESTIONS: Family History (Parent hip fracture): NO History of Fracture in Adulthood: NO Secondary Osteoporosis: NO Current Tobacco Use: YES RISK FACTORS HISTORY OF: Surgery to Hip(left): YES When: 2019 Family History of Osteoporosis: NO Active: YES FOR 81 Diet low in dairy products/other sources of calcium: NO Postmenopausal woman: YES Lost more than 2 inches in height since high school: YES MEDICATIONS: Thyroid Medications: YES Which medication: Synthroid Additional Medications: YES D3 , SYNTHROID , BLADDER MEDS, NEURONTIN EXAM MEASUREMENTS: Bone mineral densitometry was performed using the mokono System. Bone mineral density as measured about the Lumbar spine is: ----- L1-L4(G/cm2): 1.443 T Score Values are as follows: ----- L1: 1.0 ----- L2: 2.8 ----- L3: 2.6 ----- L4: 2.1 ----- L1-L4: 2.2 Bone mineral density BASELINE Bone mineral density about the R hip (g/cm2): 0.951 T Score values are as follows: -----R Neck: -0.2 -----R Total: -0.4 Bone mineral density BASELINE FRAX%s: The graph provided illustrates a 8.7% chance for a major osteoporotic fx and a 1.4% chance fo r the hips probability for fx in 10 years time. IMPRESSION: Normal (Values between +1 and -1 indicate normal bone mass). Consider repeating this study in 5 year s or sooner if there is some new clinical indication. NOTE: T-SCORE=SD OF THE YOUNG ADULT MEAN.
--- NOTE | 2022-01-06 19:05 | MM ---
Reason for Exam: Screening (asymptomatic). Last mammogram was performed 1 year(s) and 1 month(s) ago. Patient History: Menarche at age 9. First Full-Term at age 19. Left ovary removed at age 47. Right ovary removed at age 47. Hysterectomy at age 47. Postmenopausal. Estrogen for 2 years from age 47 until age 49. Hormonal Contraceptives, starting at age 18 for 3 years. 1984, Benign Excisional Biopsy on the right side. 1986, Benign Excisional Biopsy on the left side. Benign Excisional Biopsy on the left side. Risk Values: Clemencia 5 year model risk: 2.2%. NCI Lifetime model risk: 2.7%. Prior Study Comparison: 11/06/2019 Bilateral Screening Mammogram, [facility]. 11/14/2019 Left Diagnostic Mammogram, [facility]. 11/27/2020 Bilateral Screening Mammogram, [facility]. Tissue Density: The breast tissue is heterogeneously dense. This may lower the sensitivity of mammography. Findings: Analyzed By CAD. Unchanged global asymmetry upper-outer quadrant left breast. Subareolar nodularity right CC view does not persist on 3-D images, compatible with superimposition shadow. Some benign vascular calcification is noted on both sides as well as a few benign oil cyst calcifications on the left. No significant change from prior exams. Overall Assessment: Benign, BI-RAD 2 Management: Screening Mammogram of both breasts in 1 year. 1. Patient should continue monthly self breast exams. 2. A clinical breast exam by your physician is recommended on an annual basis. 3. This exam should not preclude additional follow-up of suspicious palpable abnormalities. Electronically signed and approved by: Johan Aiken M.D. Radiologist
== END | disposition home or self-care (01) ==
LOC: RADMAMWWP 11:27
PROVIDERS: ATTEND Internal Medicine Geriatric Medicine
DX: Z12.31 Encounter for screening mammogram for malignant neoplasm of breast (principal); M81.0 Age-related osteoporosis without current pathological fracture; Z78.0 Asymptomatic menopausal state; Z98.890 Other specified postprocedural states
CPT/HCPCS: 77063; 77067; 77080

== ENCOUNTER → 2022-09-19 | Outpatient (CLI) | payer MEDICARE ==
--- NOTE | 2022-09-19 13:18 | XR ---
EXAMINATION TYPE: XR Hip Complete RT DATE OF EXAM: 09/19/2022 COMPARISON: NONE HISTORY: Pain TECHNIQUE: 2 views submitted FINDINGS: There is diffuse osteopenia with a well-corticated density along the greater trochanter compatible wi th previous injury. There is complete loss of the joint space with remodeling of the acetabulum and f emoral head. Osteonecrosis in the differential diagnosis. No acute fracture. Visualized SI joints. IMPRESSION: 1. Complete loss of joint space superiorly with remodeling of the acetabulum and femoral head. Osteon ecrosis femoral head in the differential diagnosis.
--- NOTE | 2022-09-19 13:24 | XR ---
EXAM TYPE: LUMBAR SPINE X RAY SERIES COMPARISON: NONE HISTORY: Pain TECHNIQUE: 3 views are submitted. FINDINGS: Alignment is anatomic. The pedicles are intact. The transverse processes are intact. There is анна ed gastric distention. There is bilateral SI joint arthropathy. Diffuse osteopenia. Incidental note m lincoln of marked gastric distention. Lateral view suggests hip replacement surgery. There is severe degenerative disc disease at levels L2 -S1 with advanced facet arthropathy. Vascular calcifications noted. Additional multilevel moderate de generative disc disease. Minimal anterior listhesis of L2 on L3, L3 on L4 and L4 on L5. IMPRESSION: 1. Multilevel severe degenerative disc disease and facet arthropathy suspected multilevel foraminal e ncroachment. 2. Diffuse osteopenia. 3. Marked gastric distention.
== END | disposition home or self-care (01) ==
LOC: RADXRMAIN 12:08
PROVIDERS: ATTEND Internal Medicine Geriatric Medicine
DX: M87.851 Other osteonecrosis, right femur (principal); M51.36 Other intervertebral disc degeneration, lumbar region; M47.816 Spondylosis without myelopathy or radiculopathy, lumbar region; M25.551 Pain in right hip; K63.89 Other specified diseases of intestine; M85.88 Other specified disorders of bone density and structure, other site
CPT/HCPCS: 72100; 73502

== ENCOUNTER → 2022-12-08 | Outpatient (CLI) | payer MEDICARE ==
[2022-12-08 14:23] LABS: Partial Thromboplastin Time 18.8 sec (22.0-30.0)
[2022-12-08 14:57] LABS: INR 0.9 (<1.2); Prothrombin Time 9.8 sec (10.0-12.5)
[2022-12-08 20:40] LABS: Basophils # (A) 0.03 X 10*3/uL (0.00-0.10); Basophils % (A) 0.4 %; Eosinophils # (A) 0.17 X 10*3/uL (0.04-0.35); Eosinophils % (A) 2.2 %; HCT 39.8 % (37.2-46.3); HGB 12.2 d/dL (12.0-15.0); Lymphocytes # (A) 1.64 X 10*3/uL (0.90-5.00); Lymphocytes % (A) 21.1 %; MCH 29.4 pg (27.0-32.0); MCHC 30.7 d/dL (32.0-37.0); MCV 95.9 FL (80.0-97.0); Mean Platelet Volume 11.8 FL (9.5-12.2); NRBC Per 100 WBC 0 X 10*3/uL (0.00-0.01); Neutrophils # (A) 5.21 X 10*3/uL (1.80-7.70); Neutrophils % (A) 66.9 %; Platelet Count 237 X 10*3/uL (140-440); RBC 4.15 X 10*6/uL (4.10-5.20); RDW 15.8 % (11.5-14.5); WBC 7.78 X 10*3/uL (4.50-10.00)
[2022-12-08 21:28] LABS: Appearance,Urine Turbid (Clear); Bilirubin,Urine Negative (Negative); Blood,Urine Large (Negative); Color,Urine Yellow (Yellow); Ketones,Urine Negative (Negative); Nitrite,Urine Positive (Negative); Specific Gravity,Urine 1.018 (1.001-1.030); Urobilinogen,Urine 0.2 E.U./DL
[2022-12-08 21:49] LABS: Bacteria,Urine 4+ (None Seen); Calcium Oxalate Crystals,Urine Present (None Seen)
[2022-12-09 00:18] LABS: ALT 15 U/L (8-44); AST 20 U/L (13-35); Albumin/Globulin Ratio 1.33 Ratio (1.60-3.17); Alkaline Phosphatase 97 U/L (41-126); BUN/Creat Ratio 22.56 Ratio (12.00-20.00); Blood Urea Nitrogen 20.3 mg/dL (9.0-27.0); Calcium 9.5 mg/dL (8.7-10.3); Carbon Dioxide 26.3 mmol/L (21.6-31.8); Chloride 102 mmol/L (96-109); Chol/HDL Ratio 2.09 Ratio; Glucose 88 mg/dL (70-110); LDL Cholesterol,Calculated 41.6 mg/dL (0.0-131.0); Potassium 4.8 mmol/L (3.5-5.5); Sodium 141 mmol/L (135-145); T4, Free (Free Thyroxine) 1.13 ng/dL (0.80-1.80); Total Bilirubin 0.2 mg/dL (0.3-1.2)
== END | disposition home or self-care (01) ==
LOC: LABPAT 12:31
PROVIDERS: ATTEND Orthopaedic Surgery
DX: Z01.812 Encounter for preprocedural laboratory examination (principal); N18.2 Chronic kidney disease, stage 2 (mild); M16.11 Unilateral primary osteoarthritis, right hip; E03.9 Hypothyroidism, unspecified; E78.5 Hyperlipidemia, unspecified; R73.9 Hyperglycemia, unspecified
CPT/HCPCS: 80053; 80061; 81001; 83036; 84439; 84443; 85025; 85610; 85730; 86850; 86900; 86901; 87070; 93005

== ENCOUNTER 2022-12-19 05:37 | Inpatient (IN) | payer MEDICARE ==
[2022-12-16 12:35] VITALS: BMI 30.2
[~2022-12-19 05:37] MED LIST: ACETAMINOPHEN TAB 500 MG TAB PO PRN; GABAPENTIN 300 MG CAP PO PRN; MELOXICAM 7.5 MG TAB PO PRN; TRANEXAMIC 1,000 MG/100ML-NACL 1,000 MG in SALINE 1 100ML.BAG IVPB PRN
[2022-12-19] MEDS ORDERED: DEXAMETHASONE SOD PHOSPHATE 4 MG/ML 1 ML VIAL IV ONE (05:38)
[2022-12-19] MEDS ORDERED: ONDANSETRON 4 MG/2 ML VIAL IVP PRN (05:38)
[2022-12-19] MEDS ORDERED: LIDOCAINE 1% (10MG/ML) FOR IV START INTRADERMA PRN (05:38)
[2022-12-19] MEDS ORDERED: HYDROmorphone 0.5 MG/0.5 ML SYRINGE IVP PRN ×4 (05:38→08:55)
[2022-12-19] MEDS: LACTATED RINGERS 1,000 ML IV SCH (06:40)
[2022-12-19] MEDS ORDERED: fentaNYL (PF) 50 MCG/ML 2 ML AMP IVP ONE (06:51)
[2022-12-19] MEDS ORDERED: MIDAZOLAM 2 MG/2 ML VIAL IVP ONE (06:51)
[2022-12-19] MEDS ORDERED: ceFAZolin 1,000 MG in SODIUM CHLORIDE 0.9% 1,000 ML IRRIGATION ONE (07:02)
[2022-12-19] MEDS ORDERED: ROPIVACAINE 5 MG/ML 30 ML VIAL MISCELLANE ONE ×2 (07:37→08:19)
[2022-12-19] MEDS ORDERED: LACTATED RINGERS 1,000 ML IV ONE ×3 (08:24→13:46)
--- NOTE | 2022-12-19 08:26 | P.OP ---
Date of Procedure: 12/19/22 Preoperative Diagnosis: Severe osteoarthritis right hip Postoperative Diagnosis: Severe osteoarthritis right hip Procedure(s) Performed: Right total hip arthroplasty with a direct anterior approach Implants: [employer] Polarstem standard size 4 with a collar [employer] R3, 3 hole hemispherical acetabular shell, 50 mm [employer] Reflection 6.5 mm cancellus screw, 25 mm 2 [employer] R3, XLPE 20 acetabular liner [employer] Oxinium femoral head 32 m, +0 All components were press-fit. The articulation is Oxinium on polyethylene. Anesthesia: spinal Surgeon: Kalen Griffin Chief Airline Radio Operator #1: Dang Paez Estimated Blood Loss (ml): 400 Pathology: none sent Condition: stable Disposition: PACU Indications for Procedure: After failure of conservative treatment we discussed the surgical and nonsur gical treatment options at length. Patient wishes to proceed with a total hip arthroplasty with a direct anterior approach. Complications specific to this procedure were discussed at length, including but not limited to infection, leg length discrepancy, dislocation, nerve injury, and fracture. Covid-19 was also discussed at length with the patient, and they are aware of the current policies and procedures. The patient was given the option of delaying surgery, but they elect to proceed knowing these risks. Patient is aware of all these complications and informed consent was obtained Operative Findings: The operative findings are consistent with severe progressive arthritis of the right hip Description of Procedure: The patient was seen and evaluated in the preoperative area and the consent was reviewed. The operative site was marked with a skin marker. The patient verified the procedure and operative site. A GIBRAN block was placed by anesthesia in the preoperative area. The patient was then brought to the operating room and given preoperative antibiotics intravenously. 1 g of Tranexamic acid was also given intravenously. A spinal anesthetic was administered by the anesthesia department. A Jennings catheter was placed. The patient was then placed on the [place] table with the bony prominences well-padded. The hip area was then prepped with a ChloraPrep solution and draped in the usual sterile fashion. A universal timeout was then performed, which confirmed the patient's name, surgical site, ALLERGIES, and procedure being performed on the consent. Next the incision site was located at 1 cm distal and 4 cm lateral to the anterior superior iliac spine. The skin and subcutaneous tissues were sharply incised. Incision was carefully dissected down to the fascia overlying the tensor fascia kecia muscle. This fascia was then incised in line with the muscle fibers. Care was taken to stay laterally in order to avoid injuring the lateral femoral cutaneous nerve. Next, using blunt finger dissection, the tensor fascia kecia muscle was dissected off its investing fascia. The muscle was then carefully retracted laterally with a cobra retractor over the lateral neck of the femur. Next, the circumflex vessels were identified and cauterized using the Aquamantis device. The anterior hip capsule was then exposed. The capsule was then opened and an inverted T fashion. The retractors were then placed intracapsularly. The retractors were maintained intracapsular throughout the procedure. The proximal femur was then visualized. Fluoroscopic x-rays were then taken in order to evaluate the preoperative leg lengths. A small amount of traction was placed on the leg. The femoral neck was then osteotomized at the appropriate level above the lesser trochanter. A small wedge of bone was then removed from the remaining femoral head. Next, using a corkscrew the femoral head was removed from the acetabulum. On gross visual inspection, the femoral head had complete loss of articular cartilage and multiple periarticular osteophytes. The femoral head was then measured. Attention was then turned to the acetabulum. The acetabulum was exposed and any remaining labrum was excised. Sequential reaming of the acetabulum was performed using fluoroscopic guidance until there was a good bed of bleeding cancellus bone. When the appropriate size was reached, a trial was then placed. The position and fit of the trial was checked with fluoroscopy. The trial was then removed. Then, using fluoroscopic guidance, the final implant was impacted at 20 of anteversion and 40 of abduction, and fully seated in the acetabulum. 2 screws were then placed in the acetabulum. Again fluoroscopy was used to check position of the screws. Next, the liner was then impacted, with a 20 elevated liner located in the anterior superior quadrant. Component locking was confirmed. Attention was then directed to the femur. With the aid of the [place] table, the femur was externally rotated to approximately 130, extended, and adducted under the opposite leg. A side hook was then placed under the proximal femur, and the side hook elevator was used to elevate the proximal femur while releasing the capsule. Retractors were then placed. A capsular release was performed, as well as a release of the conjoined tendon, which afforded excellent visualization of the proximal femur. Next, a box osteotome was used to lateralize the proximal femur. A hand striper was then used to locate the femoral canal. Sequential broaching was then performed with appropriate size which afforded excellent fixation in the proximal femur. A trial was then placed with appropriate head and neck, and the hip was gently reduced with the aid of the [place] table. Fluoroscopy was then used to check position of the components, as well as to evaluate the leg lengths and offset. The leg lengths and offset were measured as closely as possible to ensure stability of the hip. The hip was then gently dislocated and the trials were then removed. Final implants were then impacted and the hip was again reduced. Final fluoroscopic x-rays confirmed that the components were in anatomic position. The leg lengths and offset were measured and were found to coincide with the trial measurements. The hip was also taken through range of motion, and found to be stable. The hip was then copiously irrigated with antibiotic solution with pulsatile lavage. The hip was then irrigated with Irrisept solution. The soft tissues were then injected with a ropivacaine solution. A second dose of 1 g of Tranexamic acid was also given intravenously. The fascia was then closed with 2-0 strata fix suture. The subcutaneous tissue was closed with 3-0 Vicryl. The subcuticular tissue was closed with 3-0 strata fix suture. A Prevena wound vac dressing was applied. The patient was then transferred to the recovery room in stable condition. The butcher assistant OSMEL Brady was required due to the complexity of surgery, and the need for skilled manager surgical for positioning, draping, exposure, retraction, and closure of the wound.
[2022-12-19] MEDS ORDERED: MAGNESIUM HYDROXIDE 2,400 MG/30 ML CUP PO PRN (08:55)
[2022-12-19] MEDS ORDERED: NALOXONE 0.4 MG/ML 1 ML VIAL IV PRN (08:55)
--- NOTE | 2022-12-19 09:20 | P.ANPRN ---
Procedure Note - Anesthesia - Nerve Block Performed Right Arturo Single Time Out Performed: Yes ([id number]) Date of Procedure: 12/19/22 Procedure Start Time: 06:51 Procedure Stop Time: 06:55 Location of Patient: PreOp Indication: Acute Post-Operative Pain, Requested by Surgeon Specifically requested for management of pain by DrLeonides: Kalen Griffin Sedation Type: Sedate with meaningful contact maintained Preparation: Sterile Prep Position: Supine Catheter: None Needle Types: Pajunk Needle Gauge: 21 Ultrasound used to visualize needle placement: Yes Ultrasound used to observe medication spread: Yes Injectate: 0.5% Ropivacaine (see comment for volume) (30cc) Blood Aspirated: No Pain Paresthesia on Injection Noted: No Resistance on Injection: Normal Image Stored and Saved: Yes Events: Uneventful and Well Tolerated
--- NOTE | 2022-12-19 09:25 | XR ---
EXAMINATION TYPE: XR Hip Limited RT DATE OF EXAM: 12/19/2022 9:17 AM INDICATION: Patient age:Female; 82 years old; Reason for study: Status post hip surgery, assess surgical alignment; [facility]. COMPARISON: Right hip radiograph 09/19/2022 TECHNIQUE: The right hip was examined in single frontal projection . FINDINGS: Post surgical changes from right total hip arthroplasty. Hardware appears intact on this si ngle projection. There is associated soft tissue gas and edema. No acute fracture or dislocation. IMPRESSION: Post surgical changes from right total hip arthroplasty. Hardware appears intact on this single proje ction.
--- NOTE | 2022-12-19 09:26 | XR ---
Intraoperative/procedural fluoroscopic services were provided for total right hip arthroplasty. Total fluoroscopy time is 24.6 seconds with a total of 4 submitted images to PACS. Total DAP 1.1314 Gycm2. Please see the operative note for further details.
[2022-12-19] MEDS: SODIUM CHLORIDE 0.9% 1,000 ML IV SCH (14:08)
[2022-12-19] MEDS: HYDROcodone/APAP 7.5-325MG 1 EACH TAB PO PRN ×2 (14:36→21:08)
[2022-12-19] MEDS: SENNOSIDES-DOCUSATE SODIUM 1 EACH TAB PO SCH (20:05)
[2022-12-19] MEDS: APIXABAN 2.5 MG TABLET PO SCH (20:05)
[2022-12-19] MEDS: ONDANSETRON 4 MG/2 ML VIAL IVP PRN (21:07)
[2022-12-19] MEDS: cycloSPORINE 0.05% OPHTH 0.4 ML DROPERETTE BOTH EYES SCH (23:46)
[2022-12-20] MEDS: MELATONIN 3 MG TABLET PO PRN (02:48)
[2022-12-20] MEDS: HYDROcodone/APAP 7.5-325MG 1 EACH TAB PO PRN ×2 (05:24→11:08)
[2022-12-20] MEDS: SODIUM CHLORIDE 0.9% 1,000 ML IV SCH ×2 (06:46→08:22)
[2022-12-20] MEDS: LACTATED RINGERS 1,000 ML IV SCH (06:58)
[2022-12-20] MEDS ORDERED: SODIUM CHLORIDE 0.9% 500 ML 250 ML IV ONE (07:14)
[2022-12-20] MEDS: cycloSPORINE 0.05% OPHTH 0.4 ML DROPERETTE BOTH EYES SCH ×2 (08:27→20:45)
[2022-12-20] MEDS: APIXABAN 2.5 MG TABLET PO SCH ×2 (08:27→20:44)
[2022-12-20 11:26] LABS: Basophils # (A) 0.01 X 10*3/uL (0.00-0.10); Basophils % (A) 0.1 %; Eosinophils # (A) 0.06 X 10*3/uL (0.04-0.35); Eosinophils % (A) 0.8 %; HCT 27.7 % (37.2-46.3); HGB 8.5 d/dL (12.0-15.0); Lymphocytes # (A) 1.26 X 10*3/uL (0.90-5.00); Lymphocytes % (A) 17.8 %; MCHC 30.7 d/dL (32.0-37.0); MCV 94.5 FL (80.0-97.0); Mean Platelet Volume 11.3 FL (9.5-12.2); Monocytes # (A) 0.98 X 10*3/uL (0.20-1.00); Monocytes % (A) 13.8 %; NRBC Per 100 WBC 0 X 10*3/uL (0.00-0.01); Neutrophils # (A) 4.76 X 10*3/uL (1.80-7.70); Neutrophils % (A) 67.2 %; Platelet Count 184 X 10*3/uL (140-440); RBC 2.93 X 10*6/uL (4.10-5.20); RDW 15.3 % (11.5-14.5); WBC 7.09 X 10*3/uL (4.50-10.00)
[2022-12-20] MEDS ORDERED: ALBUTEROL NEBULIZED 2.5 MG/3 ML INHALATION PRN (12:36)
[2022-12-20] MEDS ORDERED: clonazePAM 0.5 MG TAB PO PRN (12:36)
--- NOTE | 2022-12-20 12:41 | P.CONS ---
History of Present Illness - Reason for Consult Consult date: 12/20/22 Medical management - History of Present Illness History of present illness; patient is 82-year-old lady with past medical history significant for hypothyroidism, osteoarthritis who presented to the hospital for elective right total hip arthroplasty. Patient is following up outpatient with orthopedic for right hip pain, patient has been having difficulty ambulating and right hip pain for the last few months. Patient had tried pain medication therapy but conservative measures failed. Orthopedic di scussed with patient and they decided for patient to undergo surgery. Postoperatively the medicine team was consulted for medical management REVIEW OF SYSTEMS: CONSTITUTIONAL: No fever, no malaise, no fatigue. HEENT: No recent visual problems or hearing problems. Denied any sore throat. CARDIOVASCULAR: No chest pain, orthopnea, PND, no palpitations, no syncope. PULMONARY: No shortness of breath, no cough, no hemoptysis. GASTROINTESTINAL: No diarrhea, no nausea, no vomiting, no abdominal pain. NEUROLOGICAL: No headaches, no weakness, no numbness. HEMATOLOGICAL: Denies any bleeding or petechiae. GENITOURINARY: Denies any burning micturition, frequency, or urgency. MUSCULOSKELETAL/RHEUMATOLOGICAL: Complaining of right hip pain ENDOCRINE: Denies any polyuria or polydipsia. The rest of the 14-point review of systems is negative. PHYSICAL EXAMINATION: GENERAL: The patient is alert and oriented x3, not in any acute distress. Well developed, well nourished. HEENT: Pupils are round and equally reacting to light. EOMI. No scleral icterus. No conjunctival pallor. Normocephalic, atraumatic. No pharyngeal erythema. No thyromegaly. CARDIOVASCULAR: S1 and S2 present. No murmurs, rubs, or gallops. PULMONARY: Chest is clear to auscultation, no wheezing or crackles. ABDOMEN: Soft, nontender, nondistended, normoactive bowel sounds. No palpable organomegaly. MUSCULOSKELETAL: No joint swelling or deformity. Right hip surgical incision seen EXTREMITIES: No cyanosis, clubbing, or pedal edema. NEUROLOGICAL: Gross neurological examination did not reveal any focal deficits. SKIN: No rashes. Assessment and plan Status post right total hip arthroplasty Acute blood loss anemia Hypothyroidism Monitor vital signs Monitor CBC Monitor CMP Continue pain management per orthopedics Continue DVT prophylaxis per orthopedics Resume Synthroid Resume home meds PT and OT consulted Labs and medication were reviewed.. Continue same treatment. Continue with symptomatic treatment. Resume home medication. Monitor labs and vitals. DVT and GI prophylaxis. Further recommendations as per clinical course of the patient Dictation was produced using [employer] dictation software. please excuse any grammatical, word or spelling errors. Past Medical History Past Medical History: Deep Vein Thrombosis (DVT), Eye Disorder, Osteoarthritis (OA), Thyroid Disorder Additional Past Medical History / Comment(s): Current UTI, on antibiotics. Dry eye, had plugs surgically placed in eyes. Hx DVT right leg 55 yrs ago. Hx sepsis 4 yrs ago, frequent UTI's, wears pad. History of Any Multi-Drug Resistant Organisms: None Reported Past Surgical History: Breast Surgery, Hysterectomy, Orthopedic Surgery Additional Past Surgical History / Comment(s): Cataract surgery, partial thyroidectomy, bilateral total knee replacements, reconstructive surgery to both feet, vein taken out of right leg from groin to ankle, left breast biospy, right breast biopsy X2, left breast lumpectomy, bilateral eyelid surgery. left hip replacement, right hip replacement. Past Anesthesia/Blood Transfusion Reactions: No Reported Reaction Past Psychological History: Anxiety Additional Psychological History / Comment(s): Remains an active smoker. 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 No travel. No animals Smoking Status: Former smoker Past Alcohol Use History: Rare Additional Past Alcohol Use History / Comment(s): Quit smoking 5 weeks ago, smoked for 3 yrs, 1 pack every 3 days. Past Drug Use History: None Reported - Past Family History Mother Family Medical History: Cancer Additional Family Medical History / Comment(s): Pancreatic cancer. Father Family Medical History: Cancer Additional Family Medical History / Comment(s): Lymphoma. Brother(s) Family Medical History: No Reported History Sister(s) Family Medical History: No Reported History Daughter(s) Family Medical History: No Reported History Son(s) Family Medical History: No Reported History Medications and Allergies Home Medications Medication Instructions Recorded Confirmed Type Ascorbic Acid [Vitamin C] 500 mg PO DAILY 12/07/18 12/16/22 History Cholecalciferol [Vitamin D3 (25 2,000 unit PO DAILY 12/07/18 12/16/22 History Mcg = 1000 Iu)] Gabapentin [Neurontin] 200 mg PO BID 12/07/18 12/16/22 History Levothyroxine Sodium [Synthroid] 75 mcg PO QAM 12/07/18 12/16/22 History Multivitamins, Thera [Multivitamin 1 tab PO DAILY 12/07/18 12/16/22 History (formulary)] Vit A/Vit C/Vit E/Zinc/Copper 1 cap PO DAILY 12/07/18 12/16/22 History [ICAPS SOFTGEL] clonazePAM 0.5 mg PO BID PRN 12/07/18 12/16/22 History cycloSPORINE [Restasis] 1 applicator BOTH EYES BID 12/07/18 12/16/22 History Albuterol Sulfate [Proair Hfa] 1 - 2 puff INHALATION Q4H PRN #1 08/08/19 12/16/22 Rx inhaler Acetaminophen-Codeine 300-30mg 1 tab PO Q8H PRN 12/16/22 12/16/22 History [Tylenol w/codeine #3] Baclofen 10 mg PO TID PRN 12/16/22 12/16/22 History Benzonatate [Tessalon Perle] 200 mg PO BID 12/16/22 12/16/22 History Cefuroxime [Ceftin] 250 mg PO BID 12/16/22 12/19/22 History Celecoxib [CeleBREX] 200 mg PO DAILY 12/16/22 12/16/22 History Tolterodine [Detrol] 2 mg PO BID 12/16/22 12/16/22 History Vit C/E/Zn/Coppr/Lutein/Zeaxan 1 each PO DAILY 12/16/22 12/16/22 History [Preservision Areds 2 Softgel] buPROPion HCL [buPROPion HCL SR] 150 mg PO QAM 12/16/22 12/16/22 History nitrofurantoin macrocrystaL 100 mg PO DAILY 12/16/22 12/16/22 History [Nitrofurantoin] Apixaban [Eliquis] 2.5 mg PO BID 30 Days #70 tab 12/19/22 Rx HYDROcodone/APAP 7.5-325MG [[place] 1 - 2 tab PO Q6H PRN #32 tab 12/19/22 Rx 7.5-325] Sennosides [Senokot] 2 tab PO DAILY PRN #60 tablet 12/19/22 Rx Allergies Allergy/AdvReac Type Severity Reaction Status Date / Time Latex, Natural Rubber Allergy Rash/Hives Verified 12/19/22 05:53 Physical Exam Vitals: Vital Signs Temp Pulse Resp BP Pulse Ox 12/20/22 10:09 96/57 12/20/22 08:57 98 12/20/22 08:56 98 12/20/22 08:20 83/48 12/20/22 08:19 92/55 12/20/22 01:25 99.2 F 84 18 94/52 98 12/19/22 19:34 97.8 F 85 18 90/50 96 12/19/22 14:16 97.7 F 87 16 112/68 91 L 12/19/22 14:00 82 12 103/58 95 12/19/22 13:30 89 12 96/55 95 12/19/22 13:00 89 12 105/59 95 Intake and Output 12/19/22 12/20/22 12/20/22 22:59 06:59 14:59 Intake Total 480 Output Total 100 300 Balance 380 -300 Intake: Oral 480 Output: Urine 100 300 Other: Voiding Method Indwelling Catheter Indwelling Catheter Results CBC & Chem 7: 12/20/22 05:41 Labs: Abnormal Lab Results - Last 24 Hours (Table) 12/20/22 Range/Units 05:41 RBC 2.93 L (4.10-5.20) X 10*6/uL Hgb 8.5 L (12.0-15.0) d/dL Hct 27.7 L (37.2-46.3) % MCHC 30.7 L (32.0-37.0) d/dL RDW 15.3 H (11.5-14.5) %
--- NOTE | 2022-12-20 13:12 | P.PN ---
Subjective Progress Note Date: 12/20/22 This is an 82-year-old female who is status post right total hip arthroplasty with direct anterior approach. This is postoperative day #1 and patient is seen and evaluated at bedside with Dr. Kalen Griffin. Patient states that she was dizzy when she was working with physical therapy today. Otherwise, patient denies any new complaints today. Objective - Vital Signs Vital signs: Vital Signs Temp 99.2 F 12/20/22 01:25 Pulse 84 12/20/22 01:25 Resp 18 12/20/22 01:25 BP 96/57 12/20/22 10:09 Pulse Ox 98 12/20/22 08:57 FiO2 Intake & Output 12/19/22 12/20/22 12/20/22 18:59 06:59 18:59 Intake Total 3481 Output Total 1050 300 Balance 2431 -300 Weight 77.564 kg Intake: IV 3001 Oral 480 Output: Urine 650 300 Estimated Blood Loss 400 Other: Voiding Method Indwelling Catheter Indwelling Catheter Indwelling Catheter - Exam Vital signs are stable. Patient is in no acute distress and is alert and oriented 3. Calf is soft and nontender to palpation. Dressing is clean, dry, and intact. Patient has full foot and ankle motion without pain or difficulty. Sensation intact. Neurovascular status and circulatory status are intact. - Labs CBC & Chem 7: 12/20/22 05:41 Labs: Abnormal Lab Results - Last 24 Hours (Table) 12/20/22 Range/Units 05:41 RBC 2.93 L (4.10-5.20) X 10*6/uL Hgb 8.5 L (12.0-15.0) d/dL Hct 27.7 L (37.2-46.3) % MCHC 30.7 L (32.0-37.0) d/dL RDW 15.3 H (11.5-14.5) % Assessment and Plan (1) Osteoarthritis of right hip Current Visit: Yes Status: Acute Code(s): M16.11 - UNILATERAL PRIMARY OSTEOARTHRITIS, RIGHT HIP SNOMED Code(s): 561532612802510 (2) S/P total right hip arthroplasty Current Visit: Yes Status: Acute Code(s): Z96.641 - PRESENCE OF RIGHT ARTIFICIAL HIP JOINT SNOMED Code(s): 732022742073 Plan: Continue routine postop care and pain control. Continue anticoagulation with Eliquis. Weightbearing as tolerated with a walker. Leave Prevena wound VAC in place for 7 days. Appreciate input from internal medicine. Anticipate discharge home with homecare in the next 24-48 hours.
[2022-12-20] MEDS: ONDANSETRON 4 MG/2 ML VIAL IVP PRN ×2 (18:10→23:14)
[2022-12-20] MEDS: GABAPENTIN 100 MG CAP PO SCH (20:44)
[2022-12-20] MEDS: SENNOSIDES-DOCUSATE SODIUM 1 EACH TAB PO SCH (20:45)
[2022-12-20] MEDS: BENZONATATE 100 MG CAP PO SCH (20:45)
[2022-12-21] MEDS: MELATONIN 3 MG TABLET PO PRN (02:20)
[2022-12-21] MEDS: SODIUM CHLORIDE 0.9% 1,000 ML IV SCH (03:34)
[2022-12-21] MEDS: LACTATED RINGERS 1,000 ML IV SCH (05:39)
[2022-12-21] MEDS: LEVOTHYROXINE 75 MCG TAB PO SCH (05:56)
[2022-12-21 07:39] LABS: Basophils % (A) 0 %; Eosinophils # (A) 0.1 k/uL (0-0.7); Eosinophils % (A) 1 %; HCT 30.5 % (34.0-46.0); Lymphocytes # (A) 0.9 k/uL (1.0-4.8); Lymphocytes % (A) 9 %; MCH 30.9 pg (25.0-35.0); MCHC 32.8 g/dL (31.0-37.0); MCV 94.1 fL (80.0-100.0); Monocytes # (A) 0.9 k/uL (0-1.0); Monocytes % (A) 8 %; Neutrophils # (A) 8.3 k/uL (1.3-7.7); Neutrophils % (A) 81 %; Platelet Count 132 k/uL (150-450); RBC 3.24 m/uL (3.80-5.40); RDW 14.2 % (11.5-15.5); WBC 10.3 k/uL (3.8-10.6)
[2022-12-21 08:07] LABS: ALT 11 U/L (4-34); AST 29 U/L (14-36); African American GFR (CKD) >90 (>60 ml/min/1.73 sqM); Albumin 2.6 g/dL (3.5-5.0); Albumin/Globulin Ratio 0.9; Alkaline Phosphatase 61 U/L (38-126); Anion Gap 4 mmol/L; Blood Urea Nitrogen 15 mg/dL (7-17); Calcium 8.1 mg/dL (8.4-10.2); Carbon Dioxide 27 mmol/L (22-30); Chloride 105 mmol/L (98-107); Globulin 2.8 g/dL; Glucose 109 mg/dL (74-99); Non-African American GFR(CKD) 81 (>60 ml/min/1.73 sqM); Potassium 4.3 mmol/L (3.5-5.1); Sodium 136 mmol/L (137-145); Total Bilirubin 0.5 mg/dL (0.2-1.3); Total Protein 5.4 g/dL (6.3-8.2)
[2022-12-21] MEDS: ONDANSETRON 4 MG/2 ML VIAL IVP PRN (09:05)
[2022-12-21] MEDS: APIXABAN 2.5 MG TABLET PO SCH ×2 (09:06→20:05)
[2022-12-21] MEDS: buPROPion XL 150 MG TAB.ER.24H PO SCH (09:07)
[2022-12-21] MEDS: BENZONATATE 100 MG CAP PO SCH ×2 (09:07→20:05)
[2022-12-21] MEDS: GABAPENTIN 100 MG CAP PO SCH ×2 (09:08→20:05)
[2022-12-21] MEDS: cycloSPORINE 0.05% OPHTH 0.4 ML DROPERETTE BOTH EYES SCH ×2 (09:08→20:12)
--- NOTE | 2022-12-21 10:29 | P.PN ---
Subjective Progress Note Date: 12/21/22 This is an 82-year-old female who is status post right total hip arthroplasty with direct anterior approach. This is postoperative day #2 and patient is seen and evaluated at bedside with Dr. Kalen Griffin. Patient states that she still needs a lot of assistance when working with physical therapy and is considering ECF placement. Patient denies any new complaints today. Objective - Vital Signs Vital signs: Vital Signs Temp 98.7 F 12/21/22 07:51 Pulse 98 12/21/22 07:51 Resp 17 12/21/22 07:51 BP 105/69 12/21/22 07:51 Pulse Ox 96 12/21/22 07:51 FiO2 Intake & Output 12/20/22 12/21/22 12/21/22 18:59 06:59 18:59 Intake Total 840 Output Total 925 Balance -925 840 Intake: Intake, IV Titration 840 Amount Sodium Chloride 0.9% 1, 840 000 ml @ 70 mls/hr IV . [id number] [facility] Rx#:[id number] Output: Urine 925 Other: Voiding Method Indwelling Catheter Indwelling Catheter # Voids 4 1 # Bowel Movements 1 - Exam Vital signs are stable. Patient is in no acute distress and is alert and oriented 3. Calf is soft and nontender to palpation. Prevena wound vac is clean, dry, and intact. There is a small blister at the edge of the wound vac dressing. Patient has full foot and ankle motion without pain or difficulty. Sensation intact. Neurovascular status and circulatory status are intact. - Labs CBC & Chem 7: 12/21/22 07:02 12/21/22 07:02 Labs: Abnormal Lab Results - Last 24 Hours (Table) 12/20/22 12/21/22 12/21/22 Range/Units 05:41 07:02 07:02 RBC 2.93 L 3.24 L (4.10-5.20) X 10*6/uL Hgb 8.5 L 10.0 L (12.0-15.0) d/dL Hct 27.7 L 30.5 L (37.2-46.3) % MCHC 30.7 L (32.0-37.0) d/dL RDW 15.3 H (11.5-14.5) % Plt Count 132 L (150-450) k/uL Neutrophils # 8.3 H (1.3-7.7) k/uL Lymphocytes # 0.9 L (1.0-4.8) k/uL Sodium 136 L (137-145) mmol/L Glucose 109 H (74-99) mg/dL Calcium 8.1 L (8.4-10.2) mg/dL Total Protein 5.4 L (6.3-8.2) g/dL Albumin 2.6 L (3.5-5.0) g/dL Assessment and Plan (1) Osteoarthritis of right hip Current Visit: Yes Status: Acute Code(s): M16.11 - UNILATERAL PRIMARY OSTEOARTHRITIS, RIGHT HIP SNOMED Code(s): 786195308296395 (2) S/P total right hip arthroplasty Current Visit: Yes Status: Acute Code(s): Z96.641 - PRESENCE OF RIGHT ARTIFICIAL HIP JOINT SNOMED Code(s): 363328773645 Plan: Continue routine postop care and pain control. Continue anticoagulation with Eliquis. Weightbearing as tolerated with a walker. Leave Prevena wound VAC in place for 7 days. Appreciate input from internal medicine. Patient will likely benefit from rehab placement. Anticipate discharge to [facility] in the next 24-48 hours.
--- NOTE | 2022-12-21 13:16 | P.PN ---
Subjective Progress Note Date: 12/21/22 patient is 82-year-old lady with past medical history significant for hypothyroidism, osteoarthritis who presented to the hospital for elective right total hip arthroplasty. Patient is following up outpatient with orthopedic for right hip pain, patient has been having difficulty ambulating and right hip pain for the last few months. Patient had tried pain medication therapy but co nservative measures failed. Orthopedic discussed with patient and they decided for patient to undergo surgery. Postoperatively the medicine team was consulted for medical management 12/21. Patient seen and examined. States right hip pain has improved. Denies any nausea or vomiting. PT and OT following REVIEW OF SYSTEMS: CONSTITUTIONAL: No fever, no malaise,. CARDIOVASCULAR: No chest pain, no palpitations, no syncope. PULMONARY: No shortness of breath, no cough, GASTROINTESTINAL: No diarrhea, no nausea, no vomiting, no abdominal pain. NEUROLOGICAL: No headaches, no weakness, PHYSICAL EXAMINATION: GENERAL: The patient is alert and oriented x3, not in any acute distress. Well developed, well nourished. HEENT: Pupils are round and equally reacting to light. EOMI. No scleral icterus. No conjunctival pallor. Normocephalic, atraumatic. No pharyngeal erythema. No thyromegaly. CARDIOVASCULAR: S1 and S2 present. No murmurs, rubs, or gallops. PULMONARY: Chest is clear to auscultation, no wheezing or crackles. ABDOMEN: Soft, nontender, nondistended, normoactive bowel sounds. No palpable organomegaly. MUSCULOSKELETAL: Right hip surgical incision seen EXTREMITIES: No cyanosis, clubbing, or pedal edema. NEUROLOGICAL: Gross neurological examination did not reveal any focal deficits. SKIN: No rashes. Assessment and plan Status post right total hip arthroplasty Acute blood loss anemia Hypothyroidism Monitor vital signs Monitor CBC Monitor CMP Continue telemetry monitoring Encourage use of incentive spirometer continue postoperative antibiotic per protocol, postoperative pain management per primary monitor for excessive sedation. In regards to hypothyroid continue Synthyroid Continue DVT prophylaxis per orthopedics Labs and medication were reviewed.. Continue same treatment. Continue with symptomatic treatment. Resume home medication. Monitor labs and vitals. DVT and GI prophylaxis. Further recommendations as per clinical course of the patient Dictation was produced using [employer] dictation software. please excuse any grammatical, word or spelling errors. Objective - Vital Signs Vital signs: Vital Signs Temp 98.7 F 11/01/23 07:51 Pulse 98 12/21/22 07:51 Resp 17 12/21/22 07:51 BP 105/69 12/21/22 07:51 Pulse Ox 96 12/21/22 07:51 FiO2 Intake & Output 12/20/22 12/21/22 12/21/22 18:59 06:59 18:59 Intake Total 840 Output Total 925 Balance -925 840 Intake: Intake, IV Titration 840 Amount Sodium Chloride 0.9% 1, 840 000 ml @ 70 mls/hr IV . [id number] REPLACED BY [facility] Rx#:[id number] Output: Urine 925 Other: Voiding Method Indwelling Catheter Toilet # Voids 4 1 # Bowel Movements 1 - Labs CBC & Chem 7: 12/21/22 07:02 12/21/22 07:02 Labs: Abnormal Lab Results - Last 24 Hours (Table) 12/21/22 12/21/22 Range/Units 07:02 07:02 RBC 3.24 L (3.80-5.40) m/uL Hgb 10.0 L (11.4-16.0) gm/dL Hct 30.5 L (34.0-46.0) % Plt Count 132 L (150-450) k/uL Neutrophils # 8.3 H (1.3-7.7) k/uL Lymphocytes # 0.9 L (1.0-4.8) k/uL Sodium 136 L (137-145) mmol/L Glucose 109 H (74-99) mg/dL Calcium 8.1 L (8.4-10.2) mg/dL Total Protein 5.4 L (6.3-8.2) g/dL Albumin 2.6 L (3.5-5.0) g/dL
[2022-12-21] MEDS: SENNOSIDES-DOCUSATE SODIUM 1 EACH TAB PO SCH (20:05)
[2022-12-22] MEDS: HYDROcodone/APAP 7.5-325MG 1 EACH TAB PO PRN (04:39)
[2022-12-22] MEDS: LEVOTHYROXINE 75 MCG TAB PO SCH (05:40)
[2022-12-22] MEDS: LACTATED RINGERS 1,000 ML IV SCH (06:32)
[2022-12-22 08:04] VITALS: RESP 17
[2022-12-22] MEDS: BENZONATATE 100 MG CAP PO SCH (08:20)
[2022-12-22] MEDS: GABAPENTIN 100 MG CAP PO SCH (08:21)
[2022-12-22] MEDS: APIXABAN 2.5 MG TABLET PO SCH (08:22)
[2022-12-22] MEDS: cycloSPORINE 0.05% OPHTH 0.4 ML DROPERETTE BOTH EYES SCH (08:22)
[2022-12-22] MEDS: buPROPion XL 150 MG TAB.ER.24H PO SCH (08:22)
[2022-12-22 11:02] LABS: Basophils # (A) 0.02 X 10*3/uL (0.00-0.10); Basophils % (A) 0.2 %; Eosinophils # (A) 0.02 X 10*3/uL (0.04-0.35); Eosinophils % (A) 0.2 %; Lymphocytes # (A) 0.85 X 10*3/uL (0.90-5.00); Lymphocytes % (A) 9.6 %; MCH 29.8 pg (27.0-32.0); MCHC 32.1 d/dL (32.0-37.0); MCV 92.7 FL (80.0-97.0); Mean Platelet Volume 10.8 FL (9.5-12.2); Monocytes % (A) 10.1 %; NRBC Per 100 WBC 0 X 10*3/uL (0.00-0.01); Neutrophils # (A) 7.06 X 10*3/uL (1.80-7.70); Neutrophils % (A) 79.6 %; Platelet Count 184 X 10*3/uL (140-440); RBC 3.02 X 10*6/uL (4.10-5.20); RDW 15.2 % (11.5-14.5); WBC 8.88 X 10*3/uL (4.50-10.00)
--- NOTE | 2022-12-22 13:15 | P.DS ---
Providers Date of admission: 12/21/22 14:41 Attending physician: Kalen Griffin Consults: 12/19/22 08:55 Consult Physician Routine Consulting Provider: Tyrone Albrecht Consult Reason/Comments: medical management Do you want consulting provider notified?: Yes Primary care physician: Tico Plasencia - Discharge Diagnosis(es) (1) Osteoarthritis of right hip Current Visit: Yes Status: Acute (2) S/P total right hip arthroplasty Current Visit: Yes Status: Acute Hospital Course: This is an 82-year-old female with known history of degenerative arthritis of the right hip. The patient presented for evaluation as an outpatient. After discussion and consideration patient elects to proceed with total hip arthroplasty. The patient is seen preoperatively by Dr. Griffin and medically cleared for surgery by their primary care physician. Patient is admitted to [facility] on 12/19/2022 for total hip arthroplasty. The procedure is performed without complication or sequelae. The patient is doing well postoperatively. Labs and vital signs are stable on day of discharge. On day of discharge patient's hip incision is healing well. There is minimal erythema. There is no drainage noted at this time. There is minimal soft tissue swelling to the hip and thigh. Patient has full foot and ankle motion without difficulty or pain. Calf is soft and nontender to palpation. Neurovascular status to the right lower extremity is intact. Patient is discharged home in good condition. Please see med rec for accurate list of home medications. Plan - Discharge Summary Discharge Rx Participant: No New Discharge Prescriptions: New Sennosides [Senokot] 2 tab PO DAILY PRN #60 tablet PRN Reason: Constipation Apixaban [Eliquis] 2.5 mg PO BID 30 Days #70 tab HYDROcodone/APAP 7.5-325MG [[place] 7.5-325] 1 - 2 tab PO Q6H PRN #32 tab PRN Reason: Pain No Action clonazePAM 0.5 mg PO BID PRN PRN Reason: Anxiety Multivitamins, Thera [Multivitamin (formulary)] 1 tab PO DAILY Gabapentin [Neurontin] 200 mg PO BID Cholecalciferol [Vitamin D3 (25 Mcg = 1000 Iu)] 2,000 unit PO DAILY Ascorbic Acid [Vitamin C] 500 mg PO DAILY cycloSPORINE [Restasis] 1 applicator BOTH EYES BID Vit A/Vit C/Vit E/Zinc/Copper [ICAPS SOFTGEL] 1 cap PO DAILY Levothyroxine Sodium [Synthroid] 75 mcg PO QAM Albuterol Sulfate [Proair Hfa] 1 - 2 puff INHALATION Q4H PRN #1 inhaler PRN Reason: Shortness Of Breath Celecoxib [CeleBREX] 200 mg PO DAILY Cefuroxime [Ceftin] 250 mg PO BID Acetaminophen-Codeine 300-30mg [Tylenol w/codeine #3] 1 tab PO Q8H PRN PRN Reason: Pain nitrofurantoin macrocrystaL [Nitrofurantoin] 100 mg PO DAILY Vit C/E/Zn/Coppr/Lutein/Zeaxan [Preservision Areds 2 Softgel] 1 each PO DAILY Benzonatate [Tessalon Perle] 200 mg PO BID Tolterodine [Detrol] 2 mg PO BID Baclofen 10 mg PO TID PRN PRN Reason: Pain buPROPion XL [Wellbutrin XL] 150 mg PO DAILY Discharge Medication List Ascorbic Acid [Vitamin C] 500 mg PO DAILY 12/07/18 [History] Cholecalciferol [Vitamin D3 (25 Mcg = 1000 Iu)] 2,000 unit PO DAILY 12/07/18 [H istory] Gabapentin [Neurontin] 200 mg PO BID 12/07/18 [History] Levothyroxine Sodium [Synthroid] 75 mcg PO QAM 12/07/18 [History] Multivitamins, Thera [Multivitamin (formulary)] 1 tab PO DAILY 12/07/18 [History] Vit A/Vit C/Vit E/Zinc/Copper [ICAPS SOFTGEL] 1 cap PO DAILY 12/07/18 [History] clonazePAM 0.5 mg PO BID PRN 12/07/18 [History] cycloSPORINE [Restasis] 1 applicator BOTH EYES BID 12/07/18 [History] Albuterol Sulfate [Proair Hfa] 1 - 2 puff INHALATION Q4H PRN #1 inhaler 08/08/19 [Rx] Acetaminophen-Codeine 300-30mg [Tylenol w/codeine #3] 1 tab PO Q8H PRN 12/16/22 [History] Baclofen 10 mg PO TID PRN 12/16/22 [History] Benzonatate [Tessalon Perle] 200 mg PO BID 12/16/22 [History] Cefuroxime [Ceftin] 250 mg PO BID 12/16/22 [History] Celecoxib [CeleBREX] 200 mg PO DAILY 12/16/22 [History] Tolterodine [Detrol] 2 mg PO BID 12/16/22 [History] Vit C/E/Zn/Coppr/Lutein/Zeaxan [Preservision Areds 2 Softgel] 1 each PO DAILY 12/16/22 [History] nitrofurantoin macrocrystaL [Nitrofurantoin] 100 mg PO DAILY 12/16/22 [History] Apixaban [Eliquis] 2.5 mg PO BID 30 Days #70 tab 12/19/22 [Rx] HYDROcodone/APAP 7.5-325MG [[place] 7.5-325] 1 - 2 tab PO Q6H PRN #32 tab 12/19/22 [Rx] Sennosides [Senokot] 2 tab PO DAILY PRN #60 tablet 12/19/22 [Rx] buPROPion XL [Wellbutrin XL] 150 mg PO DAILY 12/20/22 [History] Follow up Appointment(s)/Referral(s): Kalen Griffin DO [Doctor of Osteopathic Medicine] - 01/02/23 1:00 pm [facility], [NON-STAFF] - 1-2 Days ([facility] will call you to schedule your in home physical therapy visits. ) Activity/Diet/Wound Care/Special Instructions: Weightbearing as tolerated with walker. Leave Prevena intact for one week. Please take Eliquis twice daily for 30 days postoperatively to help prevent blood clots. Recommend use of compression stockings daily until follow up to help prevent swelling and blood clots. May remove at night before sleeping. Please follow-up with [facility] in 1 week for wound vac removal and call with any questions or concerns, . Discharge Disposition: HOME WITH HOME HEALTH SERVICES
--- NOTE | 2022-12-22 13:15 | P.PN ---
Subjective Progress Note Date: 12/22/22 patient is 82-year-old lady with past medical history significant for hypothyroidism, osteoarthritis who presented to the hospital for elective right total hip arthroplasty. Patient is following up outpatient with orthopedic for right hip pain, patient has been having difficulty ambulating and right hip pain for the last few months. Patient had tried pain medication therapy but co nservative measures failed. Orthopedic discussed with patient and they decided for patient to undergo surgery. Postoperatively the medicine team was consulted for medical management 12/21. Patient seen and examined. States right hip pain has improved. Denies any nausea or vomiting. PT and OT following 12/22. Patient seen and examined. States she feels much better, being planned to discharge home. Patient is medically stable for discharge REVIEW OF SYSTEMS: CONSTITUTIONAL: No fever, no malaise,. CARDIOVASCULAR: No chest pain, no palpitations, no syncope. PULMONARY: No shortness of breath, no cough, GASTROINTESTINAL: No diarrhea, no nausea, no vomiting, no abdominal pain. NEUROLOGICAL: No headaches, no weakness, PHYSICAL EXAMINATION: GENERAL: The patient is alert and oriented x3, not in any acute distress. Well developed, well nourished. HEENT: Pupils are round and equally reacting to light. EOMI. No scleral icterus. No conjunctival pallor. Normocephalic, atraumatic. No pharyngeal erythema. No thyromegaly. CARDIOVASCULAR: S1 and S2 present. No murmurs, rubs, or gallops. PULMONARY: Chest is clear to auscultation, no wheezing or crackles. ABDOMEN: Soft, nontender, nondistended, normoactive bowel sounds. No palpable organomegaly. MUSCULOSKELETAL: Right hip surgical incision seen EXTREMITIES: No cyanosis, clubbing, or pedal edema. NEUROLOGICAL: Gross neurological examination did not reveal any focal deficits. SKIN: No rashes. Assessment and plan Status post right total hip arthroplasty Acute blood loss anemia Hypothyroidism Monitor vital signs Monitor CBC Monitor CMP Continue telemetry monitoring Encourage use of incentive spirometer continue postoperative antibiotic per protocol, postoperative pain management per primary monitor for excessive sedation. In regards to hypothyroid continue Synthyroid Continue DVT prophylaxis per orthopedics, currently on Eliquis Labs and medication were reviewed.. Continue same treatment. Continue with symptomatic treatment. Resume home medication. Monitor labs and vitals. DVT and GI prophylaxis. Further recommendations as per clinical course of the patient Dictation was produced using dragon dictation software. please excuse any grammatical, word or spelling errors. Objective - Vital Signs Vital signs: Vital Signs Temp 98.4 F 12/22/22 07:09 Pulse 55 L 12/22/22 10:53 Resp 17 12/22/22 10:53 BP 94/63 12/22/22 07:09 Pulse Ox 96 12/22/22 08:33 FiO2 21 12/22/22 08:33 Intake & Output 12/21/22 12/22/22 12/22/22 18:59 06:59 18:59 Intake Total 240 Output Total 100 Balance -100 240 Intake: Oral 240 Output: Urine 100 Other: Voiding Method Bedside Commode Toilet Diaper # Voids 3 2 1 - Labs CBC & Chem 7: 12/22/22 06:37 12/21/22 07:02 Labs: Abnormal Lab Results - Last 24 Hours (Table) 12/22/22 Range/Units 06:37 RBC 3.02 L (4.10-5.20) X 10*6/uL Hgb 9.0 L (12.0-15.0) d/dL Hct 28.0 L (37.2-46.3) % RDW 15.2 H (11.5-14.5) % Lymphocytes # 0.85 L (0.90-5.00) X 10*3/uL Eosinophils # 0.02 L (0.04-0.35) X 10*3/uL
[2022-12-22 14:58] VITALS: BP 101/66; PULSE 95; TEMP 98.7
== END 2022-12-22 14:36 | disposition home health service (06) | DRG 470 ==
LOC: OR 05:37 → 4SSUR 08:44 → OR 12-21 14:40 → 4SSUR 12-21 14:41
PROVIDERS: ADMIT Orthopaedic Surgery; ATTEND Orthopaedic Surgery
PROC: 8E0YXBF Computer Assisted Procedure of Lower Extremity, With Fluoroscopy (ICD-10-PCS; 2022-12-19)
PROC: 3E0T3BZ Introduction of Anesthetic Agent into Peripheral Nerves and Plexi, Percutaneous Approach (ICD-10-PCS; 2022-12-19)
PROC: 0SR904A Replacement of Right Hip Joint with Ceramic on Polyethylene Synthetic Substitute, Uncemented, Open Approach (ICD-10-PCS; principal; 2022-12-19 07:00)
DX: M16.11 Unilateral primary osteoarthritis, right hip (principal); D62 Acute posthemorrhagic anemia; E03.9 Hypothyroidism, unspecified; Z79.890 Hormone replacement therapy; Z79.01 Long term (current) use of anticoagulants; Z79.1 Long term (current) use of non-steroidal anti-inflammatories (NSAID); Z79.899 Other long term (current) drug therapy; Z86.718 Personal history of other venous thrombosis and embolism; Z87.440 Personal history of urinary (tract) infections; Z87.891 Personal history of nicotine dependence; Z90.710 Acquired absence of both cervix and uterus; Z96.642 Presence of left artificial hip joint; Z96.653 Presence of artificial knee joint, bilateral; Z91.040 Latex allergy status; Z91.048 Other nonmedicinal substance allergy status; Z98.42 Cataract extraction status, left eye; Z98.41 Cataract extraction status, right eye
CPT/HCPCS: 64447; 73501; 80053; 85025; 94760

== ENCOUNTER → 2023-01-18 | Outpatient (CLI) | payer MEDICARE ==
--- NOTE | 2023-01-18 16:19 | US ---
EXAMINATION TYPE: US venous doppler duplex LE RT DATE OF EXAM: 01/18/2023 4:00 PM COMPARISON: NONE CLINICAL INDICATION: Female, 82 years old with history of I82.401 ACUTE EMBOLISM AND THOMBOS; right h ip replacement x 1 month ago. Swelling. Pain. On blood thinners. SIDE PERFORMED: Right TECHNIQUE: The lower extremity deep venous system is examined utilizing real time linear array sonog satnam with graded compression, doppler sonography and color-flow sonography. VESSELS IMAGED: Common Femoral Vein Deep Femoral Vein Greater Saphenous Vein * Femoral Vein Popliteal Vein Small Saphenous Vein * Proximal Calf Veins (* superficial vessels) Right Leg: Negative for DVT IMPRESSION: Grayscale, color doppler, spectral doppler imaging performed of the deep veins of the lo wer extremities. There is normal flow, compressibility, vascular waveforms.
== END | disposition home or self-care (01) ==
LOC: RADUSWWP 15:38
PROVIDERS: ATTEND Internal Medicine Geriatric Medicine
DX: I82.401 Acute embolism and thrombosis of unspecified deep veins of right lower extremity (principal); Z79.01 Long term (current) use of anticoagulants

== ENCOUNTER → 2023-03-22 | Outpatient (CLI) | payer MEDICARE ==
--- NOTE | 2023-03-23 10:42 | MM ---
Reason for Exam: Screening (asymptomatic). Last mammogram was performed 1 year(s) and 2 month(s) ago. Patient History: Menarche at age 9. First Full-Term at age 19. Left ovary removed at age 47. Right ovary removed at age 47. Hysterectomy at age 47. Postmenopausal. Estrogen for 2 years from age 47 until age 49. Hormonal Contraceptives, starting at age 18 for 3 years. 1984, Benign Excisional Biopsy on the right side. 1986, Benign Excisional Biopsy on the left side. Benign Excisional Biopsy on the left side. Risk Values: Clemencia 5 year model risk: 2.1%. NCI Lifetime model risk: 2.3%. Prior Study Comparison: 11/14/2019 Left Diagnostic Mammogram, [facility]. 11/27/2020 Bilateral Screening Mammogram, [facility]. 01/05/2022 Bilateral MG 3D screening mammo w/cad, [facility]. Tissue Density: The breast tissue is heterogeneously dense. This may lower the sensitivity of mammography. Findings: Analyzed By CAD. There is no suspicious group of microcalcifications or new suspicious mass. Benign-appearing calcifications bilaterally. Overall Assessment: Benign, BI-RAD 2 Management: Screening Mammogram of both breasts in [address] [facility] will attempt to contact patient to return for supplemental views and ultrasound if indicated. Patient should continue monthly self-breast exams. A clinical breast exam by your physician is recommended on an annual basis. This exam should not preclude additional follow-up of suspicious palpable abnormalities. Note on Clemencia scores and lifetime risk: 1. A Clemencia score greater than 3% is considered moderate risk. If this is the case, consider specialist referral to assess eligibility for a risk reducing agent. 2. If overall lifetime risk for the development of breast cancer is 20% or higher, the patient may qualify for future screening with alternating mammogram and breast MRI. Electronically signed and approved by: Anival Figueroa DO
== END | disposition home or self-care (01) ==
LOC: RADMAMWWP 15:40
PROVIDERS: ATTEND Internal Medicine Geriatric Medicine
DX: Z12.31 Encounter for screening mammogram for malignant neoplasm of breast (principal); Z78.0 Asymptomatic menopausal state
CPT/HCPCS: 77063; 77067

== ENCOUNTER 2023-06-18 12:19 | Inpatient (IN) | payer MEDICARE ==
[2023-06-18] MEDS: KETOROLAC 15 MG/ML 1 ML VIAL IVP STA (13:22)
[2023-06-18] MEDS: MORPHINE SULFATE 2 MG/ML SYRINGE IVP ONE (13:23)
--- NOTE | 2023-06-18 13:43 | XR ---
EXAMINATION TYPE: XR hand complete bilateral DATE OF EXAM: 06/18/2023 1:37 PM CLINICAL INDICATION:Female, 83 years old with history of pain; [facility] COMPARISON: None TECHNIQUE: XR hand complete bilateral Frontal, lateral and oblique views were obtained. FINDINGS: Multifocal degeneration changes with joint space narrowing osteophyte formation worse at th e left hand second digit proximal interphalangeal joint and first digit interphalangeal joints. Worse in the right hand at the proximal and distal interphalangeal joint of the first digit and fourth dig it proximal interphalangeal joint. There is some mild subluxation of some of the joints 2 to severe d egeneration worse at the left hand second digit proximal interphalangeal joint and right hand fourth digit proximal interphalangeal joint No evidence of fracture. Scattered soft tissue swelling througho ut the areas of multifocal degeneration. IMPRESSION: 1. No acute osseous pathology. 2. Moderate to severe multifocal osteoporosis changes.
[2023-06-18 13:47] LABS: Anisocytosis Slight; Basophils % (A) 0 %; Eosinophils # (A) 0.1 k/uL (0-0.7); Eosinophils % (A) 1 %; HCT 36.3 % (34.0-46.0); HGB 11.6 gm/dL (11.4-16.0); Lymphocytes # (A) 0.7 k/uL (1.0-4.8); Lymphocytes % (A) 7 %; MCH 27.7 pg (25.0-35.0); MCHC 31.9 g/dL (31.0-37.0); MCV 86.8 fL (80.0-100.0); Mean Platelet Volume 8.6; Monocytes # (A) 0.8 k/uL (0-1.0); Monocytes % (A) 7 %; Neutrophils # (A) 8.7 k/uL (1.3-7.7); Neutrophils % (A) 84 %; Platelet Count 286 k/uL (150-450); RBC 4.18 m/uL (3.80-5.40); RDW 17.7 % (11.5-15.5); WBC 10.5 k/uL (3.8-10.6)
[2023-06-18 13:59] LABS: ALT 14 U/L (4-34); AST 26 U/L (14-36); African American GFR (CKD) >90 (>60 ml/min/1.73 sqM); Albumin 3.6 g/dL (3.5-5.0); Alkaline Phosphatase 79 U/L (38-126); Anion Gap 10 mmol/L; Blood Urea Nitrogen 19 mg/dL (7-17); Calcium 8.8 mg/dL (8.4-10.2); Carbon Dioxide 20 mmol/L (22-30); Chloride 105 mmol/L (98-107); Glucose 105 mg/dL (74-99); Non-African American GFR(CKD) 81 (>60 ml/min/1.73 sqM); Sodium 135 mmol/L (137-145); Total Bilirubin 0.7 mg/dL (0.2-1.3); Total Protein 7.1 g/dL (6.3-8.2)
[2023-06-18 15:13] LABS: Potassium 4.5 mmol/L (3.5-5.1)
--- NOTE | 2023-06-18 15:28 | ED ---
General Adult HPI - General Chief complaint: Extremity Injury, Lower Stated complaint: Pain Time Seen by Provider: 06/18/23 12:28 Source: patient, EMS, RN notes reviewed Mode of arrival: EMS Limitations: no limitations - History of Present Illness Initial comments: 83-year-old female presents to the emergency department for evaluation of bilateral hand and wrist pain. Patient states that she has a history of osteoarthritis and has been experiencing worsening pain recently. She also reports significant pain all over but worse in the hands. She notes that about 1 month ago she saw Dr. Schwarz for this. She states she was not started on any medications at that time. She reports that since then she has had more difficulty at home due to the pain. She admits that she is currently receiving treatment for a UTI with oral antibiotics. She is unsure of the name of the medication. Denies chills at home, found to be borderline febrile in ED. - Related Data Home Medications Medication Instructions Recorded Confirmed Gabapentin [Neurontin] 200 mg PO BID 12/07/18 06/18/23 Levothyroxine Sodium [Synthroid] 75 mcg PO DAILY 12/07/18 06/18/23 Multivitamins, Thera [Multivitamin 1 tab PO DAILY 12/07/18 06/18/23 (formulary)] clonazePAM 0.5 mg PO BID 12/07/18 06/18/23 Baclofen 5 mg PO TID PRN 12/16/22 06/18/23 Benzonatate [Tessalon Perle] 200 mg PO TID PRN 12/16/22 06/18/23 Tolterodine [Detrol] 2 mg PO BID 12/16/22 06/18/23 Vit C/E/Zn/Coppr/Lutein/Zeaxan 1 cap PO DAILY 12/16/22 06/18/23 [Preservision Areds 2 Softgel] buPROPion XL [Wellbutrin XL] 150 mg PO DAILY 12/20/22 06/18/23 Albuterol Sulfate [Proair Hfa] 2 puff INHALATION RT-Q4H PRN 06/18/23 06/18/23 Ascorbic Acid [Vitamin C] 1,000 mg PO DAILY 06/18/23 06/18/23 Bumetanide [BUMEX] 0.5 mg PO DAILY 06/18/23 06/18/23 Cholecalciferol [Vitamin D3 (25 25 mcg PO DAILY 06/18/23 06/18/23 Mcg = 1000 Iu)] HYDROcodone/APAP 7.5-325MG [[place] 1 tab PO Q6H PRN 06/18/23 06/18/23 7.5-325] Potassium Chloride ER [K-Dur 10] 10 meq PO DAILY 06/18/23 06/18/23 Previous Rx's Medication Instructions Recorded Cefuroxime [Ceftin] 250 mg PO BID 5 Days #6 tab 06/21/23 Phenazopyridine HCl [Pyridium] 200 mg PO TID #12 tablet 06/21/23 predniSONE 10 mg PO BID #20 tab 06/21/23 Allergies Allergy/AdvReac Type Severity Reaction Status Date / Time Latex, Natural Rubber Allergy Rash/Hives Verified 06/18/23 16:22 Review of Systems ROS Statement: Those systems with pertinent positive or pertinent negative responses have been documented in the HPI. ROS Other: All systems not noted in ROS Statement are negative. Past Medical History Past Medical History: Eye Disorder, Osteoarthritis (OA), Thyroid Disorder Additional Past Medical History / Comment(s): Osteoporosis History of Any Multi-Drug Resistant Organisms: None Reported Past Surgical History: Breast Surgery, Hysterectomy, Orthopedic Surgery Additional Past Surgical History / Comment(s): Cataract surgery, partial thyroidectomy, bilateral total knee replacements, reconstructive surgery to both feet, vein taken out of right leg from groin to ankle, left breast biospy, right breast biopsy X2, left breast lumpectomy, bilateral eyelid surgery. left hip replacement, right hip replacement. Past Anesthesia/Blood Transfusion Reactions: No Reported Reaction Past Psychological History: No Psychological Hx Reported, Anxiety Smoking Status: Former smoker Past Alcohol Use History: Rare Past Drug Use History: None Reported - Past Family History Mother Family Medical History: Cancer Additional Family Medical History / Comment(s): Pancreatic cancer. Father Family Medical History: Cancer Additional Family Medical History / Comment(s): Lymphoma. Brother(s) Family Medical History: No Reported History Sister(s) Family Medical History: No Reported History Daughter(s) Family Medical History: No Reported History Son(s) Family Medical History: No Reported History General Exam Limitations: no limitations General appearance: alert, in no apparent distress Head exam: Present: atraumatic, normocephalic, normal inspection Eye exam: Present: normal appearance, PERRL, EOMI. Absent: scleral icterus, co njunctival injection, periorbital swelling ENT exam: Present: normal exam, mucous membranes moist Respiratory exam: Present: normal lung sounds bilaterally. Absent: respiratory distress, wheezes, rales, rhonchi, stridor Cardiovascular Exam: Present: tachycardia GI/Abdominal exam: Present: soft, normal bowel sounds. Absent: distended, tenderness, guarding, rebound, rigid Extremities exam: Present: tenderness, normal capillary refill, joint swelling (Bilateral hands, PIP, DIP). Absent: full ROM Back exam: Present: normal inspection Neurological exam: Present: alert, oriented X3 Psychiatric exam: Present: normal affect, normal mood Skin exam: Present: warm, dry, intact, normal color. Absent: rash Course Vital Signs 06/18/23 06/18/23 06/18/23 12:24 15:22 19:06 Temperature 100 F H 99.8 F H 98.8 F Pulse Rate 111 H 100 100 Respiratory 18 18 18 Rate Blood Pressure 152/80 110/74 101/58 O2 Sat by Pulse 96 95 94 L Oximetry 06/18/23 19:33 Temperature 98.3 F Pulse Rate 55 L Respiratory 18 Rate Blood Pressure 91/59 O2 Sat by Pulse 98 Oximetry Medical Decision Making - Medical Decision Making Was pt. sent in by a medical professional or institution ([facility], PIPE [facility]ELDER, urgent care, hospital, or snf...) When possible be specific @ -No Did you speak to anyone other than the patient for history (EMS, parent, family, police, friend...)? What history was obtained from this source @ -EMS Did you review nursing and triage notes (agree or disagree)? Why? @ -I reviewed and agree with nursing and triage notes Were old charts reviewed (outside hosp., previous admission, EMS record, old EKG, old radiological studies, urgent care reports/EKG's, snf records)? Report findings @ -No old charts were reviewed Differential Diagnosis (chest pain, altered mental status, abdominal pain women, abdominal pain men, vaginal bleeding, weakness, fever, dyspnea, syncope, headache, dizziness, GI bleed, back pain, seizure, CVA, palpatations, mental health, musculoskeletal)? @ -Differential Musculoskeletal Muscular strain, contusion, ligament sprain, fracture, arthritis, septic arthritis, bursitis, cellulitis, muscle spasm, nerve compression, DVT, arterial occlusion, herpes zoster, electrolyte abnormality, tumor.... This is not meant to be in all inclusive list Differential Fever: Pneumonia, viral URI, endocarditis, myocarditis, pericarditis, otitis, sinusitis, peritonsillar Abscess, retropharyngeal Abscess, epiglottitis, peritonitis, appendicitis, Vero cystitis, diverticulitis, hepatitis, colitis, UTI, PID, TOA, pyelonephritis, prostatitis, epididymitis, meningitis, encephalitis, pulmonary embolism, CVA, thyroid storm, pancreatitis, adrenal crisis, cavernous sinus thrombosis, this is not meant to be an all-inclusive list. EKG interpreted by me (3pts min.). @ -None X-rays interpreted by me (1pt min.). @ -XR bilateral hands show severe osteoarthritis CT interpreted by me (1pt min.). @ -None done U/S interpreted by me (1pt. min.). @ -None done What testing was considered but not performed or refused? (CT, X-rays, U/S, labs)? Why? @ -None What meds were considered but not given or refused? Why? @ -None Did you discuss the management of the patient with other professionals (professionals i.e. , PA, PIPE WELDER, lab, RT, psych nurse, school social worker, furs salesperson, teacher, environmental protection officer, case making machine operator)? Give summary @ -Case discussed with [facility], Dr. Dyson who is covering for Dr. Plasencia who is accepting of the admission Was smoking cessation discussed for >3mins.? @ -No Was critical care preformed (if so, how long)? @ -No Were there social determinants of health that impacted care today? How? (Anai elessness, low income, unemployed, alcoholism, drug addiction, transportation, low edu. Level, literacy, decrease access to med. care, intermediate, rehab)? @ -No Was there de-escalation of care discussed even if they declined (Discuss DNR or withdrawal of care, Hospice)? DNR status @ -No What co-morbidities impacted this encounter? (DM, HTN, Smoking, COPD, CAD, Cancer, CVA, ARF, Chemo, Hep., AIDS, mental health diagnosis, sleep apnea, morbid obesity)? @ -Osteoarthritis Was patient admitted / discharged? Hospital course, mention meds given and route, prescriptions, significant lab abnormalities, going to OR and other pertinent info. @ -Admitted. Patient presented to the emergency department for evaluation of bilateral hand pain. Patient has known severe osteoarthritis in bilateral hands. She saw a hand specialist for this about 1 month ago. She states that recently the pain has gotten much worse. She does report that she is currently on antibiotics outpatient for urinary tract infection although she is not sure what she is on. She denies known fever at home but was found to be borderline febrile and tachycardic in the emergency department. CBC essentially unremarkable, she did have elevated CRP. UA obtained which positive for signs of infectious process including nitrate, leukocyte esterase. Patient was started on 1 L normal saline with maintenance fluids, Rocephin. Does not meet SIRS at time of eval. With her failed outpatient treatment for UTI, patient will be admitted to the hospital for IV antibiotics. Case was discussed with Dr. Dyson who is covering for Dr. Plasencia this weekend. Patient and family understanding of above plan. Patient stable at time of admission. Case discussed with Dr. Car Undiagnosed new problem with uncertain prognosis? @ -No Drug Therapy requiring intensive monitoring for toxicity (Heparin, Nitro, Insulin, Cardizem)? @ -No Were any procedures done? @ -No Diagnosis/symptom? @ -UTI, failed outpatient tx, osteoarthritis, reactive arthritis Acute, or Chronic, or Acute on Chronic? @ -Acute Uncomplicated (without systemic symptoms) or Complicated (systemic symptoms)? @ -Complicated Side effects of treatment? @ -No Exacerbation, Progression, or Severe Exacerbation? @ -No Poses a threat to life or bodily function? How? (Chest pain, USA, AR, pneumonia, PE, COPD, DKA, ARF, appy, cholecystitis, CVA, Diverticulitis, Homicidal, Suicidal, threat to staff... and all critical care pts) @ -No - Lab Data Result diagrams: 06/20/23 07:26 06/20/23 07:26 Lab Results 06/18/23 06/18/23 06/18/23 Range/Units 13:25 13:25 14:18 WBC 10.5 (3.8-10.6) k/uL RBC 4.18 (3.80-5.40) m/uL Hgb 11.6 (11.4-16.0) gm/dL Hct 36.3 (34.0-46.0) % MCV 86.8 (80.0-100.0) fL MCH 27.7 (25.0-35.0) pg MCHC 31.9 (31.0-37.0) g/dL RDW 17.7 H (11.5-15.5) % Plt Count 286 (150-450) k/uL MPV 8.6 Neutrophils % 84 % Lymphocytes % 7 % Monocytes % 7 % Eosinophils % 1 % Basophils % 0 % Neutrophils # 8.7 H (1.3-7.7) k/uL Lymphocytes # 0.7 L (1.0-4.8) k/uL Monocytes # 0.8 (0-1.0) k/uL Eosinophils # 0.1 (0-0.7) k/uL Basophils # 0.0 (0-0.2) k/uL Anisocytosis Slight ESR 125 H (0-30) mm/Hr Sodium 135 L (137-145) mmol/L Potassium 4.5 (3.5-5.1) mmol/L Chloride 105 (98-107) mmol/L Carbon Dioxide 20 L (22-30) mmol/L Anion Gap 10 mmol/L BUN 19 H (7-17) mg/dL Creatinine 0.66 (0.52-1.04) mg/dL Est GFR (CKD-EPI)AfAm >90 (>60 ml/min/1.73 sqM) Est GFR (CKD-EPI)NonAf 81 (>60 ml/min/1.73 sqM) Glucose 105 H (74-99) mg/dL Calcium 8.8 (8.4-10.2) mg/dL Total Bilirubin 0.7 (0.2-1.3) mg/dL AST 26 (14-36) U/L ALT 14 (4-34) U/L Alkaline Phosphatase 79 (38-126) U/L C-Reactive Protein 19.6 H (<1.0) mg/dL Total Protein 7.1 (6.3-8.2) g/dL Albumin 3.6 (3.5-5.0) g/dL Urine Color Urine Appearance (Clear) Urine pH (5.0-8.0) Ur Specific [place] (1.001-1.035) Urine Protein (Negative) Urine Glucose (UA) (Negative) Urine Ketones (Negative) Urine Blood (Negative) Urine Nitrite (Negative) Urine Bilirubin (Negative) Urine Urobilinogen (<2.0) mg/dL Ur Leukocyte Esterase (Negative) Urine RBC (0-5) /hpf Urine WBC (0-5) /hpf Urine Bacteria (None) /hpf Hyaline Casts (0-2) /lpf Urine Mucus (None) /hpf Influenza Type A (PCR) Not Detected (Not Detectd) Influenza Type B (PCR) Not Detected (Not Detectd) RSV (PCR) Not Detected (Not Detectd) SARS-CoV-2 (PCR) Not Detected (Not Detectd) 06/18/23 Range/Units 15:42 WBC (3.8-10.6) k/uL RBC (3.80-5.40) m/uL Hgb (11.4-16.0) gm/dL Hct (34.0-46.0) % MCV (80.0-100.0) fL MCH (25.0-35.0) pg MCHC (31.0-37.0) g/dL RDW (11.5-15.5) % Plt Count (150-450) k/uL MPV Neutrophils % % Lymphocytes % % Monocytes % % Eosinophils % % Basophils % % Neutrophils # (1.3-7.7) k/uL Lymphocytes # (1.0-4.8) k/uL Monocytes # (0-1.0) k/uL Eosinophils # (0-0.7) k/uL Basophils # (0-0.2) k/uL Anisocytosis ESR (0-30) mm/Hr Sodium (137-145) mmol/L Potassium (3.5-5.1) mmol/L Chloride (98-107) mmol/L Carbon Dioxide (22-30) mmol/L Anion Gap mmol/L BUN (7-17) mg/dL Creatinine (0.52-1.04) mg/dL Est GFR (CKD-EPI)AfAm (>60 ml/min/1.73 sqM) Est GFR (CKD-EPI)NonAf (>60 ml/min/1.73 sqM) Glucose (74-99) mg/dL Calcium (8.4-10.2) mg/dL Total Bilirubin (0.2-1.3) mg/dL AST (14-36) U/L ALT (4-34) U/L Alkaline Phosphatase (38-126) U/L C-Reactive Protein (<1.0) mg/dL Total Protein (6.3-8.2) g/dL Albumin (3.5-5.0) g/dL Urine Color Yellow Urine Appearance Turbid H (Clear) Urine pH 6.0 (5.0-8.0) Ur Specific [place] 1.017 (1.001-1.035) Urine Protein 2+ H (Negative) Urine Glucose (UA) Negative (Negative) Urine Ketones 2+ H (Negative) Urine Blood Moderate H (Negative) Urine Nitrite Positive H (Negative) Urine Bilirubin Negative (Negative) Urine Urobilinogen <2.0 (<2.0) mg/dL Ur Leukocyte Esterase Large H (Negative) Urine RBC 47 H (0-5) /hpf Urine WBC >182 H (0-5) /hpf Urine Bacteria Occasional H (None) /hpf Hyaline Casts 42 H (0-2) /lpf Urine Mucus Moderate H (None) /hpf Influenza Type A (PCR) (Not Detectd) Influenza Type B (PCR) (Not Detectd) RSV (PCR) (Not Detectd) SARS-CoV-2 (PCR) (Not Detectd) Disposition Clinical Impression: UTI (urinary tract infection), Weakness Disposition: ADMITTED IP TO THIS [facility] Condition: Stable Is patient prescribed a controlled substance at d/c from ED?: No
[2023-06-18 15:33] LABS: C Reactive Protein 19.6 mg/dL (<1.0)
[2023-06-18 16:02] LABS: Appearance,Urine Turbid (Clear); Bacteria,Urine Occasional /hpf; Bilirubin,Urine Negative (Negative); Blood,Urine Moderate (Negative); Color,Urine Yellow; Glucose,Urine (UA) Negative (Negative); Hyaline Casts,Urine 42 /lpf (0-2); Ketones,Urine 2+ (Negative); Leukocyte Esterase,Urine Large (Negative); Mucus,Urine Moderate /hpf; Nitrite,Urine Positive (Negative); Protein,Urine 2+ (Negative); RBC,Urine 47 /hpf (0-5); Urobilinogen,Urine <2.0 mg/dL (<2.0); WBC,Urine >182 /hpf (0-5)
[2023-06-18 16:06] LABS: Specific Gravity,Urine 1.017 (1.001-1.035)
[2023-06-18] MEDS: ACETAMINOPHEN TAB 325 MG TAB PO STA (16:31)
[2023-06-18] MEDS: SODIUM CHLORIDE 0.9% 1,000 ML IV SCH (16:33)
[2023-06-18] MEDS: SODIUM CHLORIDE 0.9% 1,000 ML IV ONE (16:33)
[2023-06-18] MEDS ORDERED: MORPHINE SULFATE 4 MG/ML SYRINGE IV PRN (17:47)
[2023-06-18] MEDS ORDERED: NALOXONE 0.4 MG/ML 1 ML VIAL IV PRN (17:47)
[2023-06-18] MEDS ORDERED: ALBUTEROL NEBULIZED 2.5 MG/3 ML INHALATION PRN (17:53)
[2023-06-18] MEDS: clonazePAM 0.5 MG TAB PO SCH (20:03)
[2023-06-18] MEDS: KETOROLAC 15 MG/ML 1 ML VIAL IVP PRN (20:03)
[2023-06-18] MEDS: GABAPENTIN 100 MG CAP PO SCH (20:03)
[2023-06-19] MEDS: LEVOTHYROXINE 75 MCG TAB PO SCH (05:08)
[2023-06-19] MEDS ORDERED: HYDROcodone/APAP 7.5-325MG 1 EACH TAB PO PRN (07:30)
[2023-06-19 07:32] LABS: Erythrocyte Sedimentation Rate 125 mm/Hr (0-30)
--- NOTE | 2023-06-19 07:38 | P.HPIM ---
History of Present Illness H&P Date: 06/19/23 HISTORY OF PRESENT ILLNESS: 83-year-old office patient with active medical history of Hypothyroidism, asthma/reactive airway, diastolic congestive heart failure with edema, recurrent urinary tract infection, chronic neuropathy, chronic degenerative disc disease, chronic arthritis, mild osteoporosis, with previous history of breast cancer who was seen in the office recently for UTI was started on Ceftin. She presented to the emergency department late in the evening on June 18, 2023 complaining of severe generalized pain all over with worsening bilateral wrist pain severe reactive arthritis along with mild altered mental status and slight worsening confusion. For her wrist pain she is seeing Dr. Correa over a month ago starting the medication and was giving an injection apparently has been having worsening symptoms with it. Her urinary tract infection become a lot worse last 48 hours start causing more problem with reactive arthritis and worsening symptoms with her mentation, ability to ambulate and walk. Son-in-law and calling EMS brought her to the emergency department were seen and evaluated her laboratory value shows normal white blood cell 10.5 with normal hemoglobin hematocrit 8 sodium is 135 creatinine 0.66 with GFR over 81 percentile normal glucose C-reactive protein was 19.6 normal liver function test urine test was very positive culture still pending-respiratory culture with influenza, RSV and COVID were all negative. Patient was started on 1 g of Rocephin IV admitted to the hospital for encephalopathy, UTI and reactive arthritis. REVIEW OF SYSTEMS: CONSTITUTIONAL: Well-developed no acute respiratory distress. EYES: No icterus sclerae, no conjunctivitis. EARS, NOSE, MOUTH, THROAT, and FACE: No sore throat, lymphadenopathy, carotid bruits or deformity. RESPIRATORY: No SOB cough or wheezes. CARDIOVASCULAR: No CP, Palpitation, PND, Orthopnea, or angina. GASTROINTESTINAL: No Abd pain, Nausea or vomiting, no Diarrhea or constipation, No GI Bleed, no distention or masses. GENITOURINARY: Recurrent UTI, burning, incontinence. INTEGUMENT/BREAST: Generalized muscle and joint pain worsening in both wrist. HEMATOLOGIC/LYMPHATIC: Negative for bleed or purpura. MUSCULOSKELTAL: Generalized myalgia and arthralgia. NEURLOGICAL: No LOC, Sz or syncope, blurred vision dizziness or abnormality. Slight worsening confusion. BEHAVIORAL/PSYCH: Negative. ENDOCRINE: Negative. PHYSICAL EXAMINATION: General Appearance: Alert, cooperative, no distress, appears stated age. Neck HEENT: Supple, no lymphadenopathy, no thyroid enlargement, no carotid bruits. Lungs: Clear to auscultation without crackles or wheezes no rhonchi, no deformity. Chest Wall: Chest wall normal expansion with deep inspiration no tenderness and no deformity was found on exam, no costochondral pain or discomfort. Heart: Regular rate and rhythm, S1, S2 normal, no murmur, rub or gallop. Back: Symmetric, slight scoliosis with tenderness in lower lumbar area. Abdomen: Soft, non-tender, bowel sounds active all four quadrants, no masses, no organomegaly. Positive discomfort in the very lower abdominal region. Extremities: Extremities normal, severe arthritis and significant decreased mobility of both wrists with slight swelling as reactive arthritis from with tenderness. Pulses: 2+ and symmetric. Skin: Skin color, texture, tugor normal, no rashes or lesions. Neurologic: Alert oriented with slight confusion cranial nerves II through XII intact, no motor deficit, positive normal balance and gait. ASSESSMENT AND PLAN: _Sepsis and UTI: Was started on Rocephin waiting for final culture, continue hydration continue aggressive treatment. _Reactive arthritis: Most likely become worsening with her UTI, patient will benefit probably from smaller dose of steroid her C-reactive protein is quite bit high and we should exclude the possibility of infection in the wrist might become causing problem. Will consult Dr. Schwarz, and start patient on smaller dose of steroid with prednisone 10 mg a day for the next 2 weeks. Sed rate and rheumatic factor will be done as well. _Altered mental status: Mostly metabolic encephalopathy causing her change in mental status confusion not caused by her UTI. _Chronic depression: Has been on Wellbutrin XL 150 mg daily. _Peripheral neuropathy: Will continue gabapentin 200 mg twice a day. 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 _Worsening overflow incontinence: Was using Detrol on as-needed basis. _Hypothyroidism: Continue levothyroxine 75 mcg daily. _GI prophylaxis: Patient be on Pepcid 20 mg daily. _DVT prophylaxis: Early mobilization and knee-high VARINDER hose. CODE STATUS: Full code. Request social science professor PT OT consultation for help patient lives at home with her 90-year-old is not able to help her with much in the next 48 hours if patient will be able to be independent to go home with home care. Admit patient to the inpatient service for more than 2 night stay. Past Medical History Past Medical History: Eye Disorder, Osteoarthritis (OA), Thyroid Disorder Additional Past Medical History / Comment(s): Osteoporosis History of Any Multi-Drug Resistant Organisms: None Reported Past Surgical History: Breast Surgery, Hysterectomy, Orthopedic Surgery Additional Past Surgical History / Comment(s): Cataract surgery, partial thyroidectomy, bilateral total knee replacements, reconstructive surgery to both feet, vein taken out of right leg from groin to ankle, left breast biospy, right breast biopsy X2, left breast lumpectomy, bilateral eyelid surgery. left hip replacement, right hip replacement. Past Anesthesia/Blood Transfusion Reactions: No Reported Reaction Past Psychological History: No Psychological Hx Reported, Anxiety Additional Psychological History / Comment(s): Remains an active smoker. 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 No travel. No animals Smoking Status: Former smoker Past Alcohol Use History: Rare Additional Past Alcohol Use History / Comment(s): Quit smoking 5 weeks ago, smoked for 3 yrs, 1 pack every 3 days. Past Drug Use History: None Reported - Past Family History Mother Family Medical History: Cancer Additional Family Medical History / Comment(s): Pancreatic cancer. Father Family Medical History: Cancer Additional Family Medical History / Comment(s): Lymphoma. Brother(s) Family Medical History: No Reported History Sister(s) Family Medical History: No Reported History Daughter(s) Family Medical History: No Reported History Son(s) Family Medical History: No Reported History Medications and Allergies Home Medications Medication Instructions Recorded Confirmed Type Gabapentin [Neurontin] 200 mg PO BID 12/07/18 06/18/23 History Levothyroxine Sodium [Synthroid] 75 mcg PO DAILY 12/07/18 06/18/23 History Multivitamins, Thera [Multivitamin 1 tab PO DAILY 12/07/18 06/18/23 History (formulary)] clonazePAM 0.5 mg PO BID 12/07/18 06/18/23 History Baclofen 5 mg PO TID PRN 12/16/22 06/18/23 History Benzonatate [Tessalon Perle] 200 mg PO TID PRN 12/16/22 06/18/23 History Tolterodine [Detrol] 2 mg PO BID 12/16/22 06/18/23 History Vit C/E/Zn/Coppr/Lutein/Zeaxan 1 cap PO DAILY 12/16/22 06/18/23 History [Preservision Areds 2 Softgel] buPROPion XL [Wellbutrin XL] 150 mg PO DAILY 12/20/22 06/18/23 History Albuterol Sulfate [Proair Hfa] 2 puff INHALATION RT-Q4H PRN 06/18/23 06/18/23 History Ascorbic Acid [Vitamin C] 1,000 mg PO DAILY 06/18/23 06/18/23 History Bumetanide [BUMEX] 0.5 mg PO DAILY 06/18/23 06/18/23 History Cholecalciferol [Vitamin D3 (25 25 mcg PO DAILY 06/18/23 06/18/23 History Mcg = 1000 Iu)] HYDROcodone/APAP 7.5-325MG [[place] 1 tab PO Q6H PRN 06/18/23 06/18/23 History 7.5-325] Potassium Chloride ER [K-Dur 10] 10 meq PO DAILY 06/18/23 06/18/23 History cefUROXime axetiL [Ceftin] 500 mg PO BID 06/18/23 06/18/23 History Allergies Allergy/AdvReac Type Severity Reaction Status Date / Time Latex, Natural Rubber Allergy Rash/Hives Verified 06/18/23 16:22 Physical Exam Vitals: Vital Signs Temp Pulse Pulse Resp BP BP Pulse Ox 06/19/23 02:00 97.6 F 95 16 119/78 90 L 06/18/23 20:00 98.9 F 95 20 118/73 96 06/18/23 19:33 98.3 F 55 L 18 91/59 98 06/18/23 19:06 98.8 F 100 18 101/58 94 L 06/18/23 15:22 99.8 F H 100 18 110/74 95 06/18/23 12:24 100 F H 111 H 18 152/80 96 Intake and Output 06/18/23 06/18/23 06/19/23 14:59 22:59 06:59 Intake Total 100 Balance 100 Intake: Oral 100 Other: Voiding Method External Catheter External Catheter Weight 69.4 kg 72.575 kg Results CBC & Chem 7: 06/18/23 13:25 06/18/23 13:25 Labs: Abnormal Lab Results - Last 24 Hours (Table) 06/18/23 06/18/23 06/18/23 Range/Units 13:25 13:25 15:42 RDW 17.7 H (11.5-15.5) % Neutrophils # 8.7 H (1.3-7.7) k/uL Lymphocytes # 0.7 L (1.0-4.8) k/uL Sodium 135 L (137-145) mmol/L Carbon Dioxide 20 L (22-30) mmol/L BUN 19 H (7-17) mg/dL Glucose 105 H (74-99) mg/dL C-Reactive Protein 19.6 H (<1.0) mg/dL Urine Appearance Turbid H (Clear) Urine Protein 2+ H (Negative) Urine Ketones 2+ H (Negative) Urine Blood Moderate H (Negative) Urine Nitrite Positive H (Negative) Ur Leukocyte Esterase Large H (Negative) Urine RBC 47 H (0-5) /hpf Urine WBC >182 H (0-5) /hpf Urine Bacteria Occasional H (None) /hpf Hyaline Casts 42 H (0-2) /lpf Urine Mucus Moderate H (None) /hpf Thrombosis Risk Factor Assmnt - Choose All That Apply Any of the Below Risk Factors Present?: Yes Each Factor Represents 1 point: Obesity (BMI >25) Each Risk Factor Represents 3 Points: Age 75 years or older Thrombosis Risk Factor Assessment Total Risk Factor Score: 4 Thrombosis Risk Factor Assessment Level: Moderate Risk
[2023-06-19] MEDS: POTASSIUM CHLORIDE ER 10 MEQ TAB.ER.PRT PO SCH (09:28)
[2023-06-19] MEDS: buPROPion XL 150 MG TAB.ER.24H PO SCH (09:28)
[2023-06-19] MEDS: VIT A,C & E-LUTEIN-MINERALS 1 EACH TAB PO SCH (09:29)
[2023-06-19] MEDS: ASCORBIC ACID 500 MG TAB PO SCH (09:29)
[2023-06-19] MEDS: CHOLECALCIFEROL 25 MCG (1000 IU) TABLET PO SCH (09:29)
[2023-06-19] MEDS: BUMETANIDE 0.5 MG TABLET PO SCH (09:31)
[2023-06-19] MEDS: OXYBUTYNIN 10 MG TAB.ER.24 PO SCH (09:31)
--- NOTE | 2023-06-19 16:11 | P.CNOR ---
History of Present Illness - [facility] Consult date: 06/19/23 History of present illness: Patient is an 83-year-old female who presented to the emergency department [facility] for evaluation of bilateral hand and wrist pain. Patient does have a medical history significant for hypothyroidism, asthma, CHF, osteoporosis, degenerative disc disease previous history of breast cancer. Patient was seen at bedside this morning and orthopedics was consulted due to bilateral wrist arthritis. Patient was seen at bedside this morning lying the similar composition and says that since starting steroids she has had great improvement in the symptoms in her wrists and hands. She says that the intense swelling in the hands that she had when she initially came to the hospital has gone down a lot. Patient says she has had ongoing wrist and hand pain over the past several years and has difficulty writing her name. Patient's patient states he has a friend come over to help her write bills every month. Patient says she did see Dr. Schwarz in the outpatient setting about a month ago due to the ongoing issue in her wrist/hands. Patient states she has had multiple previous orthopedic surgeries including bilateral hip replacement and bilateral knee replacement as well as bilateral foot surgery. Patient denies any other orthopedic issues at this time. Past Medical History Past Medical History: Eye Disorder, Osteoarthritis (OA), Thyroid Disorder Additional Past Medical History / Comment(s): Osteoporosis History of Any Multi-Drug Resistant Organisms: None Reported Past Surgical History: Breast Surgery, Hysterectomy, Orthopedic Surgery Additional Past Surgical History / Comment(s): Cataract surgery, partial thyroidectomy, bilateral total knee replacements, reconstructive surgery to both feet, vein taken out of right leg from groin to ankle, left breast biospy, right breast biopsy X2, left breast lumpectomy, bilateral eyelid surgery. left hip replacement, right hip replacement. Past Anesthesia/Blood Transfusion Reactions: No Reported Reaction Past Psychological History: No Psychological Hx Reported, Anxiety Additional Psychological History / Comment(s): Remains an active smoker. 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 No travel. No animals Smoking Status: Former smoker Past Alcohol Use History: Rare Additional Past Alcohol Use History / Comment(s): Quit smoking 5 weeks ago, smoked for 3 yrs, 1 pack every 3 days. Past Drug Use History: None Reported - Past Family History Mother Family Medical History: Cancer Additional Family Medical History / Comment(s): Pancreatic cancer. Father Family Medical History: Cancer Additional Family Medical History / Comment(s): Lymphoma. Brother(s) Family Medical History: No Reported History Sister(s) Family Medical History: No Reported History Daughter(s) Family Medical History: No Reported History Son(s) Family Medical History: No Reported History Medications and Allergies Home Medications Medication Instructions Recorded Confirmed Type Gabapentin [Neurontin] 200 mg PO BID 12/07/18 06/18/23 History Levothyroxine Sodium [Synthroid] 75 mcg PO DAILY 12/07/18 06/18/23 History Multivitamins, Thera [Multivitamin 1 tab PO DAILY 12/07/18 06/18/23 History (formulary)] clonazePAM 0.5 mg PO BID 12/07/18 06/18/23 History Baclofen 5 mg PO TID PRN 12/16/22 06/18/23 History Benzonatate [Tessalon Perle] 200 mg PO TID PRN 12/16/22 06/18/23 History Tolterodine [Detrol] 2 mg PO BID 12/16/22 06/18/23 History Vit C/E/Zn/Coppr/Lutein/Zeaxan 1 cap PO DAILY 12/16/22 06/18/23 History [Preservision Areds 2 Softgel] buPROPion XL [Wellbutrin XL] 150 mg PO DAILY 12/20/22 06/18/23 History Albuterol Sulfate [Proair Hfa] 2 puff INHALATION RT-Q4H PRN 06/18/23 06/18/23 History Ascorbic Acid [Vitamin C] 1,000 mg PO DAILY 06/18/23 06/18/23 History Bumetanide [BUMEX] 0.5 mg PO DAILY 06/18/23 06/18/23 History Cholecalciferol [Vitamin D3 (25 25 mcg PO DAILY 06/18/23 06/18/23 History Mcg = 1000 Iu)] HYDROcodone/APAP 7.5-325MG [[place] 1 tab PO Q6H PRN 06/18/23 06/18/23 History 7.5-325] Potassium Chloride ER [K-Dur 10] 10 meq PO DAILY 06/18/23 06/18/23 History cefUROXime axetiL [Ceftin] 500 mg PO BID 06/18/23 06/18/23 History Allergies Allergy/AdvReac Type Severity Reaction Status Date / Time Latex, Natural Rubber Allergy Rash/Hives Verified 06/18/23 16:22 Physical Examination Bilateral hands present with some atrophy at the base of the bilateral thumbs. Positive for nodules throughout the MCPJ and PIPJ in both hands. Patient does have pain with movement throughout bilateral wrist in flexion and extension and throughout all joints in hand/fingers. Sensation is equal, symmetric, bowel intact throughout the upper extremities. Motor exam is grossly intact in the bilateral upper extremities on exam. Radial pulse intact, 2+ bilaterally. Cap refill present under 3 seconds in digits of upper extremities. Negative Homans bilaterally. Results - Labs Labs: Abnormal Lab Results - Last 24 Hours (Table) 06/18/23 06/18/23 06/18/23 Range/Units 13:25 13:25 15:42 RDW 17.7 H (11.5-15.5) % Neutrophils # 8.7 H (1.3-7.7) k/uL Lymphocytes # 0.7 L (1.0-4.8) k/uL ESR 125 H (0-30) mm/Hr Sodium 135 L (137-145) mmol/L Carbon Dioxide 20 L (22-30) mmol/L BUN 19 H (7-17) mg/dL Glucose 105 H (74-99) mg/dL C-Reactive Protein 19.6 H (<1.0) mg/dL Urine Appearance Turbid H (Clear) Urine Protein 2+ H (Negative) Urine Ketones 2+ H (Negative) Urine Blood Moderate H (Negative) Urine Nitrite Positive H (Negative) Ur Leukocyte Esterase Large H (Negative) Urine RBC 47 H (0-5) /hpf Urine WBC >182 H (0-5) /hpf Urine Bacteria Occasional H (None) /hpf Hyaline Casts 42 H (0-2) /lpf Urine Mucus Moderate H (None) /hpf H & H 06/18/23 Range/Units 13:25 Hgb 11.6 (11.4-16.0) gm/dL Hct 36.3 (34.0-46.0) % Result Diagrams: 06/18/23 13:25 06/18/23 13:25 - Diagnostic results Wrist/Hand x-ray: report reviewed, image reviewed (X-ray of the right and left hands does reveal osteoarthritis throughout multiple joints in the hand as well as osteoporosis. Evident CMC J osteoarthritis bilaterally. Evident osteoarthritis in multiple PIPJ) Assessment and Plan Assessment: 1. 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 Patient not complaining of any hand/wrist pain at this time. I did discuss the findings of the exam and imaging with my attending, Dr. Schwarz. At this time we are not recommending any emergent/urgent orthopedic surgical intervention. We are recommending continued conservative measures with the use of pain medication and steroids. Patient is stable from orthopedic standpoint for discharge from the hospital. We do recommend patient to follow- up in the outpatient setting with Dr. Schwarz for continued evaluation. At this time orthopedics is signing off. Please do not hesitate to contact us for any further questions. 2. Appreciate medical management 3. Pain management -gabapentin; Tylenol; [place] 4. GI prophylaxis recs 5. DVT prophylaxis recs 6. PT/OT -weightbearing as tolerated with walker. Perform gentle range of motion exercises of the bilateral hand/wrist 7. Encourage incentive spirometer use 8. Appreciate consult Time with Patient: Less than 30
[2023-06-19] MEDS: ACETAMINOPHEN TAB 325 MG TAB PO PRN (17:28)
[2023-06-20] MEDS: BACLOFEN 10 MG TAB PO PRN (00:50)
[2023-06-20] MEDS: predniSONE 10 MG TAB PO SCH (09:18)
[2023-06-20 11:24] LABS: HGB 9.2 g/dL (12.0-15.0); MCH 27.1 pg (27.0-32.0); MCHC 30.7 g/dL (32.0-37.0); MCV 88.5 FL (80.0-97.0); Mean Platelet Volume 10.1 FL (9.5-12.2); NRBC Per 100 WBC 0 X 10*3/uL (0.00-0.01); Platelet Count 255 X 10*3/uL (140-440); RBC 3.39 X 10*6/uL (4.10-5.20); RDW 19.6 % (11.5-14.5); WBC 5.65 X 10*3/uL (4.50-10.00)
[2023-06-20 11:25] LABS: ALT 9 U/L (8-44); AST 15 U/L (13-35); Albumin 2.8 g/dL (3.8-4.9); Albumin/Globulin Ratio 1.08 Ratio (1.60-3.17); Alkaline Phosphatase 77 U/L (41-126); BUN/Creat Ratio 27.89 Ratio (12.00-20.00); Blood Urea Nitrogen 25.1 mg/dL (9.0-27.0); Calcium 8.1 mg/dL (8.7-10.3); Carbon Dioxide 20.4 mmol/L (21.6-31.8); Chloride 111 mmol/L (96-109); Erythrocyte Sedimentation Rate 89 mm/Hr (0-30); Globulin 2.6 g/dL (1.6-3.3); Glucose 79 mg/dL (70-110); Potassium 4.3 mmol/L (3.5-5.5); Sodium 141 mmol/L (135-145); Total Bilirubin <0.2 mg/dL (0.3-1.2); Total Protein 5.4 g/dL (6.2-8.2)
[2023-06-20 11:56] LABS: Glucose,Whole Blood 100 mg/dL (70-110)
[2023-06-20] MEDS ORDERED: DEXTROSE 50% SYRINGE 50 ML IVP PRN ×2 (13:12)
[2023-06-20] MEDS: INSULIN ASPART (NovoLOG) 100 UNIT/ML VIAL SQ SCH ×2 (13:35→18:19)
[2023-06-20 17:32] LABS: Glucose,Whole Blood 191 mg/dL (70-110)
[2023-06-20 20:27] LABS: Glucose,Whole Blood 126 mg/dL (70-110)
[2023-06-20] MEDS: PHENAZOPYRIDINE 200 MG TAB PO PRN (23:36)
[2023-06-21 05:59] LABS: Glucose,Whole Blood 96 mg/dL (70-110)
--- NOTE | 2023-06-21 06:32 | P.PN ---
Subjective Progress Note Date: 06/20/23 HISTORY OF PRESENT ILLNESS: 83-year-old office patient with active medical history of Hypothyroidism, asthma/reactive airway, diastolic congestive heart failure with edema, recurrent urinary tract infection, chronic neuropathy, chronic degenerative disc disease, chronic arthritis, mild osteoporosis, with previous history of breast cancer who was seen in the office recently for UTI was started on Ceftin. She presented to the emergency department late in the evening on June 18, 2023 complaining of severe generalized pain all over with worsening bilateral wrist pain severe reactive arthritis along with mild altered mental status and slight worsening confusion. For her wrist pain she is seeing Dr. Correa over a month ago starting the medication and was giving an injection apparently has been having worsening symptoms with it. Her urinary tract infection become a lot worse last 48 hours start causing more problem with reactive arthritis and worsening symptoms with her mentation, ability to ambulate and walk. Son-in-law [facility] and [facility] her laboratory value shows normal white blood cell 10.5 with normal hemoglobin hematocrit 8 sodium is 135 creatinine 0.66 with GFR over 81 percentile normal glucose C-reactive protein was 19.6 normal liver function test urine test was very positive culture still pending-respiratory culture with influenza, RSV and COVID were all negative. Patient was started on 1 g of Rocephin IV admitted to the hospital for encephalopathy, UTI and reactive arthritis. June 20, 2023: Patient is feeling much better, was seen orthopedic review her medical management and her arthritis apparently slightly better and hand and wrist can benefit from prednisone 10 mg twice a day her sed rate was quite bit elevated this time start medication at this point when she seen Ortho as an outpatient can be changed to an injection. Continue to watch for Culture patient claimed that she is very weak might benefit from doing physical therapy and rehab before going home also require probably some help when she goes home with home care. REVIEW OF SYSTEMS: CONSTITUTIONAL: Well-developed no acute respiratory distress. EYES: No icterus sclerae, no conjunctivitis. EARS, NOSE, MOUTH, THROAT, and FACE: No sore throat, lymphadenopathy, carotid bruits or deformity. RESPIRATORY: No SOB cough or wheezes. CARDIOVASCULAR: No CP, Palpitation, PND, Orthopnea, or angina. GASTROINTESTINAL: No Abd pain, Nausea or vomiting, no Diarrhea or constipation, No GI Bleed, no distention or masses. GENITOURINARY: Recurrent UTI, burning, incontinence. INTEGUMENT/BREAST: Generalized muscle and joint pain worsening in both wrist. HEMATOLOGIC/LYMPHATIC: Negative for bleed or purpura. MUSCULOSKELTAL: Generalized myalgia and arthralgia. NEURLOGICAL: No LOC, Sz or syncope, blurred vision dizziness or abnormality. Slight worsening confusion. BEHAVIORAL/PSYCH: Negative. ENDOCRINE: Negative. PHYSICAL EXAMINATION: General Appearance: Alert, cooperative, no distress, appears stated age. Neck HEENT: Supple, no lymphadenopathy, no thyroid enlargement, no carotid bruits. Lungs: Clear to auscultation without crackles or wheezes no rhonchi, no deformity. Chest Wall: Chest wall normal expansion with deep inspiration no tenderness and no deformity was found on exam, no costochondral pain or discomfort. Heart: Regular rate and rhythm, S1, S2 normal, no murmur, rub or gallop. Back: Symmetric, slight scoliosis with tenderness in lower lumbar area. Abdomen: Soft, non-tender, bowel sounds active all four quadrants, no masses, no organomegaly. Positive discomfort in the very lower abdominal region. Extremities: Extremities normal, severe arthritis and significant decreased mobility of both wrists with slight swelling as reactive arthritis from with tenderness. Pulses: 2+ and symmetric. Skin: Skin color, texture, tugor normal, no rashes or lesions. Neurologic: Alert oriented with slight confusion cranial nerves II through XII intact, no motor deficit, positive normal balance and gait. ASSESSMENT AND PLAN: _Sepsis and UTI: Still on IV Rocephin at this point culture is not back yet. _Reactive arthritis: Seen Ortho her sed rate is quite bit elevated no sign of infection will initiate patient on prednisone 10 mg twice a day for the next few days. _Altered mental status: Mostly metabolic encephalopathy causing her change in mental status confusion not caused by her UTI. Much better and more clear. _Chronic depression: Has been on Wellbutrin XL 150 mg daily. _Peripheral neuropathy: Will continue gabapentin 200 mg twice a day. 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 Had significant problem with mobility and balance will add physical therapy. _Worsening overflow incontinence: Was using Detrol on as-needed basis. Worsening symptoms with her UTI at this point. _Hypothyroidism: Continue levothyroxine 75 mcg daily. _GI prophylaxis: Patient be on Pepcid 20 mg daily. _Debility: Combined with her encephalopathy, bilateral hand pain and UTI patient will start physical therapy see if she can benefit from doing rehab eventually. Objective - Vital Signs Vital signs: Vital Signs Temp 98.0 F 06/20/23 00:37 Pulse 81 06/20/23 00:37 Resp 16 06/20/23 00:37 BP 96/61 06/20/23 00:37 Pulse Ox 96 06/20/23 00:37 FiO2 Intake & Output 06/19/23 06/19/23 06/20/23 06:59 18:59 06:59 Intake Total 100 478 Output Total 150 400 Balance -50 78 Weight 72.575 kg Intake: Oral 100 478 Output: Urine 150 400 Other: Voiding Method External Catheter External Catheter External Catheter - Labs CBC & Chem 7: 06/20/23 07:26 06/20/23 07:26 Labs: Abnormal Lab Results - Last 24 Hours (Table) 06/18/23 Range/Units 13:25 ESR 125 H (0-30) mm/Hr Microbiology - Last 24 Hours (Table) 06/18/23 16:45 Blood Culture - Preliminary Blood 06/18/23 16:30 Blood Culture - Preliminary Blood
[2023-06-21 12:21] LABS: Glucose,Whole Blood 141 mg/dL (70-110)
[2023-06-21 15:11] VITALS: BP 110/65; PULSE 61; RESP 19; TEMP 97.8
--- NOTE | 2023-06-23 06:30 | P.PN ---
Subjective Progress Note Date: 06/21/23 HISTORY OF PRESENT ILLNESS: 83-year-old office patient with active medical history of Hypothyroidism, asthma/reactive airway, diastolic congestive heart failure with edema, recurrent urinary tract infection, chronic neuropathy, chronic degenerative disc disease, chronic arthritis, mild osteoporosis, with previous history of breast cancer who was seen in the office recently for UTI was started on Ceftin. She presented to the emergency department late in the evening on June 18, 2023 complaining of severe generalized pain all over with worsening bilateral wrist pain severe reactive arthritis along with mild altered mental status and slight worsening confusion. For her wrist pain she is seeing Dr. Correa over a month ago starting the medication and was giving an injection apparently has been having worsening symptoms with it. Her urinary tract infection become a lot worse last 48 hours start causing more problem with reactive arthritis and worsening symptoms with her mentation, ability to ambulate and walk. Son-in-law and [facility] and evaluated her laboratory value shows normal white blood cell 10.5 with normal hemoglobin hematocrit 8 sodium is 135 creatinine 0.66 with GFR over 81 percentile normal glucose C-reactive protein was 19.6 normal liver function test urine test was very positive culture still pending-respiratory culture with influenza, RSV and COVID were all negative. Patient was started on 1 g of Rocephin IV admitted to the hospital for encephalopathy, UTI and reactive arthritis. June 20, 2023: Patient is feeling much better, was seen orthopedic review her medical management and her arthritis apparently slightly better and hand and wrist can benefit from prednisone 10 mg twice a day her sed rate was quite bit elevated this time start medication at this point when she seen Ortho as an outpatient can be changed to an injection. Continue to watch for Culture patient claimed that she is very weak might benefit from doing physical therapy and rehab before going home also require probably some help when she goes home with home care. June: Patient is feeling much better was seen and evaluated by orthopedic, will be started prednisone 10 mg twice a day her hands are much better. Her UTI and encephalopathy has improved significantly. The patient was started on PT OT and has been doing better. Consult with patient and her family about discharge planning the option to go to SNF or go home with home care she is chosen to go home with home care and help with PT yet as well. Will finalize medication medical management patient be discharged home today June 21, 2023. REVIEW OF SYSTEMS: CONSTITUTIONAL: Well-developed no acute respiratory distress. EYES: No icterus sclerae, no conjunctivitis. EARS, NOSE, MOUTH, THROAT, and FACE: No sore throat, lymphadenopathy, carotid bruits or deformity. RESPIRATORY: No SOB cough or wheezes. CARDIOVASCULAR: No CP, Palpitation, PND, Orthopnea, or angina. GASTROINTESTINAL: No Abd pain, Nausea or vomiting, no Diarrhea or constipation, No GI Bleed, no distention or masses. GENITOURINARY: Recurrent UTI, burning, incontinence. INTEGUMENT/BREAST: Generalized muscle and joint pain worsening in both wrist. HEMATOLOGIC/LYMPHATIC: Negative for bleed or purpura. MUSCULOSKELTAL: Generalized myalgia and arthralgia. NEURLOGICAL: No LOC, Sz or syncope, blurred vision dizziness or abnormality. Slight worsening confusion. BEHAVIORAL/PSYCH: Negative. ENDOCRINE: Negative. PHYSICAL EXAMINATION: General Appearance: Alert, cooperative, no distress, appears stated age. Neck HEENT: Supple, no lymphadenopathy, no thyroid enlargement, no carotid bruits. Lungs: Clear to auscultation without crackles or wheezes no rhonchi, no deformity. Chest Wall: Chest wall normal expansion with deep inspiration no tenderness and no deformity was found on exam, no costochondral pain or discomfort. Heart: Regular rate and rhythm, S1, S2 normal, no murmur, rub or gallop. Back: Symmetric, slight scoliosis with tenderness in lower lumbar area. Abdomen: Soft, non-tender, bowel sounds active all four quadrants, no masses, no organomegaly. Positive discomfort in the very lower abdominal region. Extremities: Extremities normal, severe arthritis and significant decreased mobility of both wrists with slight swelling as reactive arthritis from with tenderness. Pulses: 2+ and symmetric. Skin: Skin color, texture, tugor normal, no rashes or lesions. Neurologic: Alert oriented with slight confusion cranial nerves II through XII intact, no motor deficit, positive normal balance and gait. ASSESSMENT AND PLAN: _Sepsis and UTI: Still on IV Rocephin at this point culture is not back yet. _Reactive arthritis: Seen Ortho her sed rate is quite bit elevated no sign of infection will initiate patient on prednisone 10 mg twice a day for the next few days. _Altered mental status: Mostly metabolic encephalopathy causing her change in mental status confusion not caused by her UTI. Much better and more clear. _Chronic depression: Has been on Wellbutrin XL 150 mg daily. _Peripheral neuropathy: Will continue gabapentin 200 mg twice a day. 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 Had significant problem with mobility and balance will add physical therapy. _Worsening overflow incontinence: Was using Detrol on as-needed basis. Worsening symptoms with her UTI at this point. _Hypothyroidism: Continue levothyroxine 75 mcg daily. _GI prophylaxis: Patient be on Pepcid 20 mg daily. _Debility: Combined with her encephalopathy, bilateral hand pain and UTI patient will start physical therapy see if she can benefit from doing rehab eventually. Objective - Vital Signs Vital signs: Vital Signs Temp 97.8 F 06/21/23 02:00 Pulse 81 06/21/23 02:00 Resp 16 06/21/23 02:00 BP 141/89 06/21/23 02:00 Pulse Ox 96 06/21/23 02:00 FiO2 Intake & Output 06/20/23 06/20/23 06/21/23 06:59 18:59 06:59 Intake Total 477 Output Total 250 700 950 Balance -250 -223 -950 Intake: Oral 477 Output: Urine 250 700 950 Other: Voiding Method External Catheter External Catheter External Catheter # Bowel Movements 1 - Labs CBC & Chem 7: 06/20/23 07:26 06/20/23 07:26 Labs: Abnormal Lab Results - Last 24 Hours (Table) 06/20/23 06/20/23 06/20/23 Range/Units 07:26 07:26 17:30 RBC 3.39 L (4.10-5.20) X 10*6/uL Hgb 9.2 L (12.0-15.0) g/dL Hct 30.0 L (37.2-46.3) % MCHC 30.7 L (32.0-37.0) g/dL RDW 19.6 H (11.5-14.5) % ESR 89 H (0-30) mm/Hr Chloride 111 H (96-109) mmol/L Carbon Dioxide 20.4 L (21.6-31.8) mmol/L BUN/Creatinine Ratio 27.89 H (12.00-20.00) Ratio POC Glucose (mg/dL) 191 H (70-110) mg/dL Calcium 8.1 L (8.7-10.3) mg/dL Total Bilirubin <0.2 L (0.3-1.2) mg/dL Total Protein 5.4 L (6.2-8.2) g/dL Albumin 2.8 L (3.8-4.9) g/dL Albumin/Globulin Ratio 1.08 L (1.60-3.17) Ratio 06/20/23 Range/Units 20:24 RBC (4.10-5.20) X 10*6/uL Hgb (12.0-15.0) g/dL Hct (37.2-46.3) % MCHC (32.0-37.0) g/dL RDW (11.5-14.5) % ESR (0-30) mm/Hr Chloride (96-109) mmol/L Carbon Dioxide (21.6-31.8) mmol/L BUN/Creatinine Ratio (12.00-20.00) Ratio POC Glucose (mg/dL) 126 H (70-110) mg/dL Calcium (8.7-10.3) mg/dL Total Bilirubin (0.3-1.2) mg/dL Total Protein (6.2-8.2) g/dL Albumin (3.8-4.9) g/dL Albumin/Globulin Ratio (1.60-3.17) Ratio Microbiology - Last 24 Hours (Table) 06/18/23 16:45 Blood Culture - Preliminary Blood 06/18/23 16:30 Blood Culture - Preliminary Blood
--- NOTE | 2023-06-23 06:30 | P.DS ---
Providers Date of admission: 06/19/23 08:00 Attending physician: Tico Plasencia Consults: 06/19/23 07:33 Consult Physician Routine Consulting Provider: Dima Schwarz Consult Reason/Comments: severe arthritis of both Wrists Do you want consulting provider notified?: Yes Primary care physician: Tico Plasencia [facility] Course: HISTORY OF PRESENT ILLNESS: 83-year-old office patient with active medical history of Hypothyroidism, asthma/reactive airway, diastolic congestive heart failure with edema, recurrent urinary tract infection, chronic neuropathy, chronic degenerative disc disease, chronic arthritis, mild osteoporosis, with previous history of breast cancer who was seen in the office recently for UTI was started on Ceftin. She presented to the emergency department late in the evening on June 18, 2023 complaining of severe generalized pain all over with worsening bilateral wrist pain severe reactive arthritis along with mild altered mental status and slight worsening confusion. For her wrist pain she is seeing Dr. Correa over a month ago starting the medication and was giving an injection apparently has been having worsening symptoms with it. Her urinary tract infection become a lot worse last 48 hours start causing more problem with reactive arthritis and worsening symptoms with her mentation, ability to ambulate and walk. Son-in-law and calling EMS brought her to the emergency department were seen and evaluated her laboratory value shows normal white blood cell 10.5 with normal hemoglobin hematocrit 8 sodium is 135 creatinine 0.66 with GFR over 81 percentile normal glucose C-reactive protein was 19.6 normal liver function test urine test was very positive culture still pending-respiratory culture with influenza, RSV and COVID were all negative. Patient was started on 1 g of Rocephin IV admitted to the hospital for encephalopathy, UTI and reactive arthritis. June 20, 2023: Patient is feeling much better, was seen orthopedic review her medical management and her arthritis apparently slightly better and hand and wrist can benefit from prednisone 10 mg twice a day her sed rate was quite bit elevated this time start medication at this point when she seen Ortho as an outpatient can be changed to an injection. Continue to watch for Culture patient claimed that she is very weak might benefit from doing physical therapy and rehab before going home also require probably some help when she goes home with home care. June: Patient is feeling much better was seen and evaluated by orthopedic, will be started prednisone 10 mg twice a day her hands are much better. Her UTI and encephalopathy has improved significantly. The patient was started on PT OT and has been doing better. Consult with patient and her family about discharge planning the option to go to SNF or go home with home care she is chosen to go home with home care and help with PT yet as well. Will finalize medication medical management patient be discharged home today June 21, 2023. REVIEW OF SYSTEMS: CONSTITUTIONAL: Well-developed no acute respiratory distress. EYES: No icterus sclerae, no conjunctivitis. EARS, NOSE, MOUTH, THROAT, and FACE: No sore throat, lymphadenopathy, carotid bruits or deformity. RESPIRATORY: No SOB cough or wheezes. CARDIOVASCULAR: No CP, Palpitation, PND, Orthopnea, or angina. GASTROINTESTINAL: No Abd pain, Nausea or vomiting, no Diarrhea or constipation, No GI Bleed, no distention or masses. GENITOURINARY: Recurrent UTI, burning, incontinence. INTEGUMENT/BREAST: Generalized muscle and joint pain worsening in both wrist. HEMATOLOGIC/LYMPHATIC: Negative for bleed or purpura. MUSCULOSKELTAL: Generalized myalgia and arthralgia. NEURLOGICAL: No LOC, Sz or syncope, blurred vision dizziness or abnormality. Slight worsening confusion. BEHAVIORAL/PSYCH: Negative. ENDOCRINE: Negative. PHYSICAL EXAMINATION: General Appearance: Alert, cooperative, no distress, appears stated age. Neck HEENT: Supple, no lymphadenopathy, no thyroid enlargement, no carotid bruits. Lungs: Clear to auscultation without crackles or wheezes no rhonchi, no deformity. Chest Wall: Chest wall normal expansion with deep inspiration no tenderness and no deformity was found on exam, no costochondral pain or discomfort. Heart: Regular rate and rhythm, S1, S2 normal, no murmur, rub or gallop. Back: Symmetric, slight scoliosis with tenderness in lower lumbar area. Abdomen: Soft, non-tender, bowel sounds active all four quadrants, no masses, no organomegaly. Positive discomfort in the very lower abdominal region. Extremities: Extremities normal, severe arthritis and significant decreased mobility of both wrists with slight swelling as reactive arthritis from with tenderness. Pulses: 2+ and symmetric. Skin: Skin color, texture, tugor normal, no rashes or lesions. Neurologic: Alert oriented with slight confusion cranial nerves II through XII intact, no motor deficit, positive normal balance and gait. ASSESSMENT AND PLAN: _Sepsis and UTI: Still on IV Rocephin at this point culture is not back yet. _Reactive arthritis: Seen Ortho her sed rate is quite bit elevated no sign of infection will initiate patient on prednisone 10 mg twice a day for the next few days. _Altered mental status: Mostly metabolic encephalopathy causing her change in mental status confusion not caused by her UTI. Much better and more clear. _Chronic depression: Has been on Wellbutrin XL 150 mg daily. _Peripheral neuropathy: Will continue gabapentin 200 mg twice a day. 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 Had significant problem with mobility and balance will add physical therapy. _Worsening overflow incontinence: Was using Detrol on as-needed basis. Worsening symptoms with her UTI at this point. _Hypothyroidism: Continue levothyroxine 75 mcg daily. _GI prophylaxis: Patient be on Pepcid 20 mg daily. _Debility: Combined with her encephalopathy, bilateral hand pain and UTI patient will start physical therapy see if she can benefit from doing rehab eventually. Hospital course: Patient was admitted on June 19, 2023 with sepsis and UTI with significant encephalopathy and change in mental status along with generalized body ache all over with severe reactive arthritis affecting her left upper extremity especially both hands and wrist. Her UA was positive urine culture no return positive mostly because patient was on antibiotic at home which is expected the patient had all signs and symptoms of sepsis and UTI initially which improved significantly on IV Rocephin initially. Patient was switched to oral antibiotic s on June 21, 2023 seem to tolerate medication along with diet very well. Was seen and evaluated by Ortho for bilateral hand pain and agree this is more reactive arthritis to have patient infection resolved and to go back to the office for further management including intra-articular injection if needed. Patient was seen physical therapy and did well with PT also seen oncology social worker and the plan was to send her home with home physical therapy and home care as well. Patient was ready to be discharged on June 21, 2023. Time spent on patient discharge was over 33 minutes. Patient Condition at Discharge: Stable Plan - Discharge Summary New Discharge Prescriptions: New predniSONE 10 mg PO BID #20 tab Phenazopyridine HCl [Pyridium] 200 mg PO TID #12 tablet Cefuroxime [Ceftin] 250 mg PO BID 5 Days #6 tab Continue clonazePAM 0.5 mg PO BID Multivitamins, Thera [Multivitamin (formulary)] 1 tab PO DAILY Gabapentin [Neurontin] 200 mg PO BID Levothyroxine Sodium [Synthroid] 75 mcg PO DAILY Vit C/E/Zn/Coppr/Lutein/Zeaxan [Preservision Areds 2 Softgel] 1 cap PO DAILY Benzonatate [Tessalon Perle] 200 mg PO TID PRN PRN Reason: Cough Cholecalciferol [Vitamin D3 (25 Mcg = 1000 Iu)] 25 mcg PO DAILY Tolterodine [Detrol] 2 mg PO BID Baclofen 5 mg PO TID PRN PRN Reason: Pain buPROPion XL [Wellbutrin XL] 150 mg PO DAILY Albuterol Sulfate [Proair Hfa] 2 puff INHALATION RT-Q4H PRN PRN Reason: Shortness Of Breath HYDROcodone/APAP 7.5-325MG [[place] 7.5-325] 1 tab PO Q6H PRN PRN Reason: Pain Ascorbic Acid [Vitamin C] 1,000 mg PO DAILY Potassium Chloride ER [K-Dur 10] 10 meq PO DAILY Bumetanide [BUMEX] 0.5 mg PO DAILY Discontinued cefUROXime axetiL [Ceftin] 500 mg PO BID Discharge Medication List Gabapentin [Neurontin] 200 mg PO BID 12/07/18 [History] Levothyroxine Sodium [Synthroid] 75 mcg PO DAILY 12/07/18 [History] Multivitamins, Thera [Multivitamin (formulary)] 1 tab PO DAILY 12/07/18 [History] clonazePAM 0.5 mg PO BID 12/07/18 [History] Baclofen 5 mg PO TID PRN 12/16/22 [History] Benzonatate [Tessalon Perle] 200 mg PO TID PRN 12/16/22 [History] Tolterodine [Detrol] 2 mg PO BID 12/16/22 [History] Vit C/E/Zn/Coppr/Lutein/Zeaxan [Preservision Areds 2 Softgel] 1 cap PO DAILY 12/16/22 [History] buPROPion XL [Wellbutrin XL] 150 mg PO DAILY 12/20/22 [History] Albuterol Sulfate [Proair Hfa] 2 puff INHALATION RT-Q4H PRN 06/18/23 [History] Ascorbic Acid [Vitamin C] 1,000 mg PO DAILY 06/18/23 [History] Bumetanide [BUMEX] 0.5 mg PO DAILY 06/18/23 [History] Cholecalciferol [Vitamin D3 (25 Mcg = 1000 Iu)] 25 mcg PO DAILY 06/18/23 [History] HYDROcodone/APAP 7.5-325MG [[place] 7.5-325] 1 tab PO Q6H PRN 06/18/23 [History] Potassium Chloride ER [K-Dur 10] 10 meq PO DAILY 06/18/23 [History] Cefuroxime [Ceftin] 250 mg PO BID 5 Days #6 tab 06/21/23 [Rx] Phenazopyridine HCl [Pyridium] 200 mg PO TID #12 tablet 06/21/23 [Rx] predniSONE 10 mg PO BID #20 tab 06/21/23 [Rx] Follow up Appointment(s)/Referral(s): Dima Schwarz DO [Doctor of Osteopathic Medicine] - 2 Weeks Tico Plasencia MD [Primary Care Provider] - 1-2 days [facility] Visiting Nurse, [NON-STAFF] - Discharge Disposition: HOME WITH HOME HEALTH SERVICES
== END 2023-06-21 14:54 | disposition home health service (06) | DRG 871 ==
LOC: EC 12:19 → SUPCPDRO 12:19 → 6NMEDSUR 17:57 → OBSVTOIN 06-19 08:00
PROVIDERS: ADMIT Internal Medicine Geriatric Medicine; ATTEND Internal Medicine Geriatric Medicine
DX: A41.9 Sepsis, unspecified organism (principal); G93.41 Metabolic encephalopathy; N39.0 Urinary tract infection, site not specified; M02.332 Reiter's disease, left wrist; M02.331 Reiter's disease, right wrist; I50.32 Chronic diastolic (congestive) heart failure; I11.0 Hypertensive heart disease with heart failure; E03.9 Hypothyroidism, unspecified; F32.A Depression, unspecified; G62.9 Polyneuropathy, unspecified; J45.909 Unspecified asthma, uncomplicated; M48.061 Spinal stenosis, lumbar region without neurogenic claudication; M54.16 Radiculopathy, lumbar region; N39.490 Overflow incontinence; F17.200 Nicotine dependence, unspecified, uncomplicated; Z71.6 Tobacco abuse counseling; M81.0 Age-related osteoporosis without current pathological fracture; M19.90 Unspecified osteoarthritis, unspecified site; F41.9 Anxiety disorder, unspecified; Z79.890 Hormone replacement therapy; Z79.899 Other long term (current) drug therapy; Z85.3 Personal history of malignant neoplasm of breast; Z87.440 Personal history of urinary (tract) infections; Z96.643 Presence of artificial hip joint, bilateral; Z96.653 Presence of artificial knee joint, bilateral; Z91.040 Latex allergy status
CPT/HCPCS: 36415; 80053; 81001; 84550; 85025; 85027; 85652; 86140; 87040; 87077; 87086; 87186; 87636; 96361; 96365; 96375; 99285

== ENCOUNTER → 2024-06-04 | Outpatient (CLI) | payer MEDICARE ==
--- NOTE | 2024-06-04 14:04 | MM ---
Reason for Exam: Screening (asymptomatic). Last mammogram was performed 1 year(s) and 3 month(s) ago. Patient History: Menarche at age 9. First Full-Term at age 19. Left ovary removed at age 47. Right ovary removed at age 47. Hysterectomy at age 47. Postmenopausal. Estrogen for 2 years from age 47 until age 49. Hormonal Contraceptives, starting at age 18 for 3 years. 1984, Benign Excisional Biopsy on the right side. 1986, Benign Excisional Biopsy on the left side. Benign Excisional Biopsy on the left side. Prior Study Comparison: 11/27/2020 Bilateral Screening Mammogram, [facility]. 01/05/2022 Bilateral MG 3D screening mammo w/cad, [facility]. 03/22/2023 Bilateral MG 3D screening mammo w/cad, [facility]. Tissue Density: The breasts are heterogeneously dense, which may obscure small masses. Findings: Analyzed By CAD. Benign appearing vascular calcification bilaterally is redemonstrated. There is no suspicious group of microcalcifications or new suspicious or enlarging mass in either breast. Overall Assessment: Benign, BI-RAD 2 Management: Screening Mammogram of both breasts in 1 year. . Patient should continue monthly self-breast exams. A clinical breast exam by your physician is recommended on an annual basis. This exam should not preclude additional follow-up of suspicious palpable abnormalities. Note on Clemencia scores and lifetime risk: 1. A Clemencia score greater than 3% is considered moderate risk. If this is the case, consider specialist referral to assess eligibility for a risk reducing agent. 2. If overall lifetime risk for the development of breast cancer is 20% or higher, the patient may qualify for future screening with alternating mammogram and breast MRI. [facility], , 06/04/2024 2:01 PM. Electronically signed and approved by: Henry Nelson M.D.
--- NOTE | 2024-06-04 14:44 | BD ---
EXAMINATION TYPE: Axial Bone Density DATE OF EXAM: 06/04/2024 CLINICAL HISTORY: 84 years old Female. 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 ICD-10 CODE: M810 AGE-RELATED OSTEO W/O CURRENT FRACTURE Height: 63 Weight: 180 FRAX RISK QUESTIONS: Family History (Parent hip fracture): NO History of Fracture in Adulthood: NO Secondary Osteoporosis: NO Current Tobacco Use: YES RISK FACTORS HISTORY OF: Surgery to Hip(left): YES When: 2020 Family History of Osteoporosis: NO Active: YES FOR 81 Diet low in dairy products/other sources of calcium: NO Postmenopausal woman: YES Lost more than 2 inches in height since high school: YES MEDICATIONS: Thyroid Medications: YES Which medication: Synthroid Additional Medications: YES D3 , SYNTHROID , BLADDER MEDS, NEURONTIN EXAM MEASUREMENTS: Bone mineral densitometry was performed using the picsell System. Bone mineral density as measured about the Lumbar spine is: ----- L1-L4(G/cm2): 1.443 T Score Values are as follows: ----- L1: 1.0 ----- L2: 2.8 ----- L3: 2.6 ----- L4: 2.1 ----- L1-L4: 2.2 Bone mineral density BASELINE Bone mineral density about the R hip (g/cm2): 0.951 T Score values are as follows: -----R Neck: -0.2 -----R Total: -0.4 Bone mineral density BASELINE FRAX%s: The graph provided illustrates a 8.7% chance for a major osteoporotic fx and a 1.4% chance fo r the hips probability for fx in 10 years time. IMPRESSION: Normal (Values between +1 and -1 indicate normal bone mass). Consider repeating this study in 5 year s or sooner if there is some new clinical indication. NOTE: T-SCORE=SD OF THE YOUNG ADULT MEAN. Current Tobacco Use: yes HISTORY OF: Surgery to Hip(right/left): bilateral When: lt hip 2019; rt hip 2022 MEDICATIONS: Thyroid Medications: yes Which medication: Synthroid How Lon+ years EXAM MEASUREMENTS: Bone mineral densitometry was performed using the picsell System. Bone mineral density as measured about the Lumbar spine is: ----- L1-L4(G/cm2): 1.395 T Score Values are as follows: ----- L1: 1.1 ----- L2: 2.2 ----- L3: 2.1 ----- L4: 1.7 ----- L1-L4: 1.8 Z Score Values are as follows: ----- L1: 3.1 ----- L2: 4.1 ----- L3: 4.1 ----- L4: 3.6 ----- L1-L4: 3.7 Bone mineral density has: Decreased -3.3% since study of: 01/05/2022 felipe hip replacements Bone mineral density about the L Wrist (g/cm2): 0.487 T Score values are as follows: -----Dist. R+U: -1.8 -----Prox. R+U: -2.8 -----Radius total: -3.1 Z Score values are as follows: -----Dist. R+U: 1.5 -----Prox. R+U: 0.4 -----Radius total: 0.2 Bone mineral density baseline IMPRESSION: Osteoporosis (T Score less than -2.5). There is increased fracture risk and therapy is usually indicated based on age. Re-Screen 1-2 years. NOTE: T-SCORE=SD OF THE YOUNG ADULT MEAN. [facility], , 06/04/2024 2:42 PM
== END | disposition home or self-care (01) ==
LOC: RADMAMWWP 13:15
PROVIDERS: ATTEND Internal Medicine Geriatric Medicine
DX: Z12.31 Encounter for screening mammogram for malignant neoplasm of breast (principal); R92.333 Mammographic heterogeneous density, bilateral breasts; M81.0 Age-related osteoporosis without current pathological fracture; Z78.0 Asymptomatic menopausal state; Z92.0 Personal history of contraception
CPT/HCPCS: 77063; 77067; 77080